=== PATIENT | female | born 1970 | race Two or more races ===

== ENCOUNTER 2020-04-06 06:51 | Emergency (ER) | payer MEDICAID, SELFPAY ==
[2020-04-06 07:08] VITALS: BP 145/85; PULSE 84; RESP 16; TEMP 37.2; O2SAT 99; BMI 25.2
--- NOTE | 2020-04-06 07:16 | ED_ITS ---
HPI - Female Genitourinary General Chief complaint: Urogenital-Female Stated complaint: ABD PAIN Time Seen by Provider: 04/06/20 07:14 Source: patient and educational sign language interpreter Mode of arrival: ambulatory Limitations: no limitations History of Present Illness MD elicited complaint: genital itching and other (has not had a period in 3 months) Pertinent past history: diabetes Onset (ago): month(s) (4) Location of symptoms: external genitalia Severity: moderate Quality of pain: other (pruritic) Consistency: intermittent Vaginal discharge: none Vaginal bleeding: none Exacerbating factors: none Relieving factors: none Associated symptoms: denies other symptoms Treatment prior to arrival: none Sexual activity: Yes Patient : No Related Data Previous Rx's Medication Instructions Recorded glycerin-min oil-polycarbophil 1 ea VAGINAL DAILY PRN #53.6 g 04/06/20 [Fem Moist andLub(glyc-min oil)] Allergies Allergy/AdvReac Type Severity Reaction Status Date / Time No Known Allergies Allergy Unverified 01/07/20 17:24 Review of Systems Review of Systems: Constitutional : No Weight loss, No Fever, No Chills ENT/Mouth : No sore throat, No Rhinorrhea Eyes: No Swelling, No Redness Cardiovascular : No Chest Pain, No SOB, NoEdema Respiratory : No Cough, No Sputum, No Wheezing Gastrointestinal : no Nausea, no Vomiting, no Diarrhea, no abdominal Pain, No Hematochezia, No Melena Genitourinary : No Dysuria, No Urinary Frequency, No Hematuria, No Urgency, pos vaginal itching, no discharge, missed periods Musculoskeletal : No joint pain, No Myalgias, No Joint Swelling Skin : No Skin Lesions, No rash Neuro : No Weakness, No Numbness, No Dizziness, No Headache Psych : No Anxiety/Panic, No Depression Heme/Lymph: No Bruising, No Lymphadenopathy Endocrine : No Polyuria, No Polydipsia All other systems reviewed and are negative. [facility] Past Medical History Attestation statement: The following information was validated with the patient. Medical History Diabetes Social History Social History (Updated 04/06/20 @ 07:21 by Caryl Trimble DO) Smoking Status: Never smoker Use of substances other than those prescribed or required for medical reasons: No Physical Exam Vital Signs: Vital Signs: Last Vital Signs Temp 98.9 F 04/06/20 07:08 Pulse 84 04/06/20 07:08 Resp 16 04/06/20 07:08 BP 145/85 H 04/06/20 07:08 Pulse Ox 99 04/06/20 07:08 Body Mass Index 25.2 Appearance: Alert. Oriented X3. No acute distress. Eyes: Pupils equal, round and reactive to light. ENT: Pharynx normal. Neck: Normal inspection. Neck supple. CVS: Normal heart rate and rhythm. Pulses normal. Respiratory: No respiratory distress. Breath sounds normal. Abdomen: Soft and nontender. : no discharge noted, shiny mildly erythematous labia, no rash noted, no lesions Skin: Skin warm and dry. Normal skin color. Normal skin turgor. Extremities: No lower extremity edema. No calf ttp Neuro: Oriented X 3. No motor deficit. No sensory deficit. MDM - Female Genitourinary MDM Narrative Medical decision making narrative: 49 yo female with DM here with 4 months of dry itching vaginal area and no menses x 3 cycles - she is worried she is but more likely this is early menopause and lack of estrogen given her vaginal appearance, no STD concerns, will obtain ED POC, UA and give a dose of diflucan and possibly start on cream for relief until she sees her PCP Lab Data Labs: Lab Results 04/06/20 Range/Units 07:15 POC Glucose 274 H (60-115) mg/dL Discharge Plan Discharge Clinical Impression: Dryness of vagina, Lack of menses Patient Disposition: Home, Self-Care Instructions: Vaginal Atrophy (ED) Additional Instructions: return to ED for any worsening symptoms or concerns Prescriptions: New Fem Moist andLub(glyc-min oil) Gel 1 ea vaginal DAILY PRN (Reason: dryness) Qty: 53.6 RF: 0 Referrals: Elizabeth Saavedra DO [Primary Care Provider] - 2 days (you should have a follow up for this) Print Language: Danish
[2020-04-06 07:19] LABS: Glucose, Whole Blood 274 mg/dL (60-115)
[2020-04-06] MEDS: Fluconazole 150 MG TABLET PO (07:26)
[2020-04-06 07:31] LABS: Glucose Urine UA >=1000 MG/DL (NEG); Leukocyte Esterase Urine NEG (NEG); Nitrite Urine NEG (NEG); PH 6.5 (5.0-8.0); Urine Blood NEG (NEG); Urine Ketones NEG (NEG); Urine Protein NEG (NEG-TRACE)
[2020-04-06 07:33] LABS: Appearance Urine CLEAR; Color Urine YELLOW; UPreg QC Valid YES; Urine Pregnancy NEGATIVE (NEGATIVE)
[2020-04-06 07:42] LABS: Bacteria Urine 1+ /LPF; RBC Urine 0 /HPF (0); Squamous Epithelial Cell Urine 2+ /LPF
== END 2020-04-06 07:54 | disposition home or self-care (01) ==
LOC: HO.ED 07:50
PROVIDERS: Emergency Provider Emergency Medicine; PCP Family Medicine
DX: N95.2 Postmenopausal atrophic vaginitis (principal)
CPT/HCPCS: 81001; 81025; 82947; 87086; 87147; 99283

== ENCOUNTER 2020-05-12 13:20 | Outpatient (REF) | payer MEDICAID, SELFPAY ==
--- NOTE | 2020-05-12 | US_ITS ---
EXAMINATION: US RETROPERITONEAL LIMITED (RENAL ONLY) CLINICAL INFORMATION: Cyst of kidney. COMPARISON: CT abdomen and pelvis without contrast dated 08/20/2019. Ultrasound abdomen complete dated 09/29/2018. Ultrasound renals only dated 07/23/2017. TECHNIQUE: Real-time imaging of the kidneys. FINDINGS: RIGHT KIDNEY: 12.4 x 6.6 x 4.9 cm (SAG x AP x TRV). The kidney is normal in size, contour, and echogenicity. Renal cortical thickness is normal. Mild pelvic fullness without significant hydronephrosis. Multiple renal stones measuring up to 0.7 cm within the lower pole and 0.6 cm within the midpole. Simple midpole cyst measuring 1.2 cm. LEFT KIDNEY: 12.1 x 5.3 x 5.9 cm (SAG x AP x TRV). The kidney is normal in size, contour, and echogenicity. Renal cortical thickness is normal. No hydronephrosis. Multiple left-sided renal stones measuring up to 1.2 cm in the lower pole and 0.8 cm within the midpole. Multiple simple-appearing cysts with the largest measuring up to 1.4 cm. US/US renal BI IMPRESSION: Multiple bilateral renal stones measuring up to 0.7 cm on the right and 0.8 cm on the left. Minimal left renal pelvic fullness without significant hydronephrosis. Simple-appearing bilateral renal cysts measuring 1.2 cm on the right and up to 1.4 cm on the left.
== END 2020-05-12 13:21 | disposition home or self-care (01) ==
LOC: HO.US 13:20
PROVIDERS: PCP Family Medicine; Visit Provider Family Medicine
DX: N28.1 Cyst of kidney, acquired (principal)
CPT/HCPCS: 76775

== ENCOUNTER 2020-06-11 11:24 | Emergency (ER) | payer MEDICAID, SELFPAY ==
[2020-06-11 11:50] VITALS: BP 151/86; PULSE 76; RESP 18; TEMP 36.9; O2SAT 100; BMI 25.0
--- NOTE | 2020-06-11 12:44 | ED.GENADULT ---
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 Patient was seen by her primary care doctor and had routine blood work ordered. She tells me she was called today and told her hemoglobin was low and told to go the emergency department for further evaluation. The patient tells me that she has had heavy and irregular menses for several years. She tells me that she last had a menses in April which lasted 20 days and was quite heavy using 1-2 packs of pads today. She does not currently have any bleeding. Her menses before then was 4 months earlier. She has had low hgb in the past but not requiring blood transfusions, not on iron. She is complaining of some intermittent palpitations and lightheadeness with position changes and with exertion. Related Data Previous Rx's Medication Instructions Recorded glycerin-min oil-polycarbophil 1 ea VAGINAL DAILY PRN #53.6 g 04/06/20 [Fem Moist andLub(glyc-min oil)] ferrous sulfate 325 mg PO DAILY #30 tab 06/11/20 Allergies Allergy/AdvReac Type Severity Reaction Status Date / Time No Known Allergies Allergy Unverified 01/07/20 17:24 Review of Systems Review of Systems: Yes all other systems are reviewed and are negative Constitutional: Constitutional: Reports no additional constitutional complaints, Denies body ache(s), Denies chills, Denies fever(s), Denies headache(s) and Denies weakness Eyes: Eyes: Reports no additional eye complaints and Denies change in vision ENT: Reports system reviewed and no additional complaints, except as documented, Reports dizziness, Denies headache(s), Denies nasal congestion, Denies nasal discharge and Denies neck pain Cardiovascular: Cardiovascular: Reports no additional cardiovascular complaints, Denies chest pain, Denies leg edema, Denies dyspnea and Reports dyspnea on exertion Respiratory: Respiratory: Reports no additional respiratory complaints, Denies cough, Denies dyspnea and Reports dyspnea on exertion Gastrointestinal: Gastrointestinal: Reports no additional gastrointestinal complaints, Denies abdominal pain, Denies diarrhea, Denies nausea and Denies vomiting Genitourinary: Genitourinary: Reports abnormal vaginal bleeding Musculoskeletal: Musculoskeletal: Reports no additional musculoskeletal complaints, Denies back pain, Denies arthralgias, Denies joint swelling, Denies neck pain, Denies numbness and Denies tingling Integumentary/Breasts: Skin/Breast: Reports system reviewed and no additional complaints, except as docu and Denies rash Neurologic: Reports system reviewed and no additional complaints, except as documented, Denies Abnormal speech present, Reports dizziness, Denies headache(s), Denies numbness, Denies tingling and Denies weakness [facility] Past Medical History Attestation statement: The following information was validated with the patient. Source: old records reviewed and nursing notes reviewed Medical History Diabetes Social History Social History Alcohol intake: never Smoking Status: Never smoker Use of substances other than those prescribed or required for medical reasons: No Advance Directives: No Advance Directives Information Provided: No Physical Exam Vital Signs: Vital Signs: Last Vital Signs Temp 98.1 F 06/11/20 16:09 Pulse 75 06/11/20 16:09 Resp 18 06/11/20 16:09 BP 138/79 06/11/20 16:09 Pulse Ox 100 06/11/20 16:09 Body Mass Index 25.0 Const: General: cooperative, healthy appearing, comfortable and no acute distress Orientation/consciousness: patient oriented x3 Limitations: no limitations HENMT: Head: Yes normal to inspection Ears: hearing grossly normal bilaterally General nose exam: Normal external nose present Face and sinus: Yes normal facial exam Mouth: Normal oral and palatal mucosa present Throat: Yes posterior oropharynx normal Eyes: General: appearance normal, both eyes and all related structures Conjunctivae: conjunctival abnormal (pale ) Pupils: Equal, round and reactive pupils present Neck: Neck: Yes normal visual inspection Chest: Chest palpation & inspection: normal inspection of the chest Resp: Effort & Inspection: normal respiratory effort Auscultation: clear to auscultation bilaterally Cardio: Rate: regular rate Rhythm: regular rhythm Peripheral pulses: Peripheral pulses 2+ throughout GI: Inspection: Yes normal to inspection Palpation (GI): Soft to palpation and nontender Auscultation: normal bowel sounds Back/Spine/Pelvis: Thoracic/Lumbar Spine: thoracic and lumbar spine normal to inspection Skin: General skin exam: no rashes or lesions noted Neuro: General: patient oriented x3, no focal motor deficits and normal sensation to monofilament Cranial nerves: Yes Equal, round and reactive pupils present Cognition (Neuro): normal cognition Speech: No Abnormal speech present Gait exam (Neuro): Normal gait present Motor exam (neuro): 5/5 motor strength present throughout Extrem: General: Yes normal to inspection Course Course Course Narrative: 49 yo female here with with low hgb in the setting of heavy, irregular vaginal bleeding none at this time. Exam is benign. No current bleeding. Vital signs stable. Will check labs, type and screen, EKG and orthostatics. 1400-Hgb 6.7. Consented for blood. 1 unit prbc ordered. 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 No need at this time with no active bleeding. Sign out to Candy pending PRBC completion and discharge home. Medical Decision Making Medical Records Medical records reviewed: Yes I reviewed the patient's medical records. Lab Data Lab results reviewed: Yes I reviewed the patient's lab results. Result diagrams: 06/11/20 13:14 06/11/20 13:14 Labs: Lab Results 06/11/20 06/11/20 06/11/20 Range/Units 13:14 13:14 13:14 WBC 6.0 (4.8-10.8) X10*3/uL RBC 3.42 L (4.20-5.50) X10*6/uL Hgb 6.7 L* (12.0-16.0) g/dl Hct 23.9 L (37-47) % MCV 69.9 L (80-98) fL MCH 19.6 L (27.0-33.0) pg MCHC 28.0 L (31.0-35.0) g/dl RDW 22.2 H (11.0-16.0) % Plt Count 269 (160-400) X10*3/uL MPV 9.6 (9.4-12.3) fL Immature Gran % (Auto) 0.3 (0.0-0.4) % Neut % (Auto) 63.8 (45-73) % Lymph % (Auto) 27.1 (20-40) % [place] % (Auto) 7.3 (2-11) % Eos % (Auto) 0.7 (0-4) % Baso % (Auto) 0.8 (0-2) % Lymph # (Auto) 1.6 (1.2-4.9) X10*3/uL [place] # (Auto) 0.4 (0.1-1.2) X10*3/uL Eos # (Auto) 0.0 (0.0-0.4) X10*3/uL Baso # (Auto) 0.1 (0.0-0.2) X10*3/uL Abs Immat Gran (auto) 0.02 (0.00-0.03) X10*3/uL Absolute Neuts (auto) 3.8 (2.0-8.3) X10*3/uL Absolute Nucleated RBC 0.000 (0.0-0.012) X10*3/uL Nucleated RBC % (auto) 0.0 (0.0-0.2) /100WBC PT 13.1 H (10.8-13.0) SEC INR 1.1 (0.9-1.1) Sodium 136 (135-145) mmol/L Potassium 4.4 (3.3-5.1) mmol/L Chloride 105 (96-108) mmol/L Carbon Dioxide 22 (22-29) mmol/L Anion Gap 13 (12-20) BUN 8 L (9-16) mg/dL Creatinine 0.67 (0.5-1.4) mg/dL Estim Creat Clear Calc 93.3 Estimated GFR > 60 Random Glucose 202 H (60-115) mg/dL Calcium 8.6 (8.4-10.2) mg/dL Blood Type Antibody Screen Crossmatch 06/11/20 Range/Units 13:41 WBC (4.8-10.8) X10*3/uL RBC (4.20-5.50) X10*6/uL Hgb (12.0-16.0) g/dl Hct (37-47) % MCV (80-98) fL MCH (27.0-33.0) pg MCHC (31.0-35.0) g/dl RDW (11.0-16.0) % Plt Count (160-400) X10*3/uL MPV (9.4-12.3) fL Immature Gran % (Auto) (0.0-0.4) % Neut % (Auto) (45-73) % Lymph % (Auto) (20-40) % [place] % (Auto) (2-11) % Eos % (Auto) (0-4) % Baso % (Auto) (0-2) % Lymph # (Auto) (1.2-4.9) X10*3/uL [place] # (Auto) (0.1-1.2) X10*3/uL Eos # (Auto) (0.0-0.4) X10*3/uL Baso # (Auto) (0.0-0.2) X10*3/uL Abs Immat Gran (auto) (0.00-0.03) X10*3/uL Absolute Neuts (auto) (2.0-8.3) X10*3/uL Absolute Nucleated RBC (0.0-0.012) X10*3/uL Nucleated RBC % (auto) (0.0-0.2) /100WBC PT (10.8-13.0) SEC INR (0.9-1.1) Sodium (135-145) mmol/L Potassium (3.3-5.1) mmol/L Chloride (96-108) mmol/L Carbon Dioxide (22-29) mmol/L Anion Gap (12-20) BUN (9-16) mg/dL Creatinine (0.5-1.4) mg/dL Estim Creat Clear Calc Estimated GFR Random Glucose (60-115) mg/dL Calcium (8.4-10.2) mg/dL Blood Type O Positive Antibody Screen NEGATIVE Crossmatch See Detail ECG Data Attestation: I personally reviewed and interpreted this ECG as follows: Interpretation: NSR, rate 73, normal pr, normal qrs, normal qt Discharge Plan Discharge Clinical Impression: Anemia Qualifiers: Anemia type: iron deficiency Iron deficiency anemia type: chronic blood loss Qualified Code(s): D50.0 - Iron deficiency anemia secondary to blood loss (chronic) Patient Disposition: Home, Self-Care Instructions: Anemia (ED) Additional Instructions: Your hemoglobin was 6.7. You received one unit of blood You should start taking an iron supplement You should follow-up with [employer] END DEVELOPER for your heavy irregular bleeding Prescriptions: New ferrous sulfate 325 mg (65 mg iron) tablet 325 mg PO DAILY Qty: 30 RF: 0 No Action Fem Moist andLub(glyc-min oil) Gel 1 ea vaginal DAILY PRN (Reason: dryness) Qty: 53.6 RF: 0 Referrals: Shawn Kendrick MD [Physician] - 2 days Print Language: Swedish
--- NOTE | 2020-06-11 12:53 | ECG_ITS ---
Test Reason : ABNORM LABS Blood Pressure : / mmHG Vent. Rate : 073 BPM Atrial Rate : 073 BPM P-R Int : 138 ms QRS Dur : 072 ms QT Int : 380 ms P-R-T Axes : 050 052 046 degrees QTc Int : 418 ms Normal sinus rhythm Normal ECG When compared with ECG of 14-NOV-2014 20:27, No significant change was found Referred By: Mara Florez Electronically Signed By:Jose Guadalupe Villanueva
[2020-06-11 13:20] LABS: Basophils Absolute Auto 0.1 X10*3/uL (0.0-0.2); Basophils Percent Auto 0.8 % (0-2); Eosinophils Percent Auto 0.7 % (0-4); Hematocrit 23.9 % (37-47); Imm Gran Abs Auto 0.02 X10*3/uL (0.00-0.03); Imm Gran Pct Auto 0.3 % (0.0-0.4); Lymphocytes Absolute Auto 1.6 X10*3/uL (1.2-4.9); Lymphocytes Percent Auto 27.1 % (20-40); MANUAL DIFF FLAG NO; Mean Corpuscular Hemoglobin 19.6 pg (27.0-33.0); Mean Corpuscular Volume 69.9 fL (80-98); Mean Platelet Volume 9.6 fL (9.4-12.3); Monocytes Absolute Auto 0.4 X10*3/uL (0.1-1.2); Monocytes Percent Auto 7.3 % (2-11); Neutrophils Absolute Auto 3.8 X10*3/uL (2.0-8.3); Neutrophils Percent Auto 63.8 % (45-73); Platelet Count 269 X10*3/uL (160-400); Red Blood Count 3.42 X10*6/uL (4.20-5.50); Red Cell Distribution Width 22.2 % (11.0-16.0)
[2020-06-11 13:30] LABS: Hemoglobin 6.7 g/dl (12.0-16.0); INTERNATIONAL NORM RATIO 1.1 (0.9-1.1); Prothrombin Time 13.1 SEC (10.8-13.0)
[2020-06-11 13:44] VITALS: BP 130/72; PULSE 80; RESP 18; TEMP 36.9; O2SAT 100
[2020-06-11 13:49] LABS: Anion Gap 13 (12-20); Blood Urea Nitrogen 8 mg/dL (9-16); Calcium 8.6 mg/dL (8.4-10.2); Carbon Dioxide 22 mmol/L (22-29); Chloride 105 mmol/L (96-108); Creatinine Clr Calc Pharmacy 93.3; Estimated Glomerular Filt Rate > 60; Glucose Random 202 mg/dL (60-115); Potassium 4.4 mmol/L (3.3-5.1); Sodium 136 mmol/L (135-145)
[2020-06-11 14:39] VITALS: BP 130/81; PULSE 80; RESP 16; TEMP 36.7
[2020-06-11 14:55] VITALS: BP 127/73; PULSE 74; RESP 16; TEMP 37.1
--- NOTE | 2020-06-11 15:19 | PC.NURSE ---
pt currently receiving 1 unit of RBC transfusion. Vitals at start of transfusion BP: 130/81, HR: 80, T: 98.1 f. Vital signs after first 15min of transfusion BP: 127/73, HR: 74, T: 98.8 f. Patient denies feeling itchy, denies feeling short of breath, denies back pain, denies feeling chills, lung sounds clear bilaterally. md mosley
[2020-06-11 16:09] VITALS: BP 138/79; PULSE 75; RESP 18; TEMP 36.7; O2SAT 100
--- NOTE | 2020-06-11 16:10 | PC.NURSE ---
resting quielty. blood infusing. states she's hugry. denies bleeding. up to br with steady gait. ls cta. nsr on monitor. skin pwd. slight palor lower conjunctiva.
[2020-06-11 17:05] VITALS: BP 123/78; PULSE 97; RESP 15; TEMP 37
== END 2020-06-11 18:12 | disposition home or self-care (01) ==
PROVIDERS: Nurse Practitioner Family; Emergency Provider Emergency Medicine; PCP Family Medicine
DX: D50.0 Iron deficiency anemia secondary to blood loss (chronic) (principal); N92.6 Irregular menstruation, unspecified; E11.9 Type 2 diabetes mellitus without complications
CPT/HCPCS: 36415; 36430; 80048; 85025; 85060; 85610; 86850; 86900; 86901; 86923; 93005; 99284; 99285; P9016

== ENCOUNTER 2020-08-15 17:17 | Emergency (ER) | payer MEDICAID, SELFPAY ==
--- NOTE | ~2020-08-15 | US_ITS ---
EXAMINATION: PELVIC ULTRASOUND CLINICAL INFORMATION: Pain and menorrhagia COMPARISON: 08/20/2019 TECHNIQUE: Both transabdominal and endovaginal scanning was performed. FINDINGS: An enlarged fibroid uterus is present measuring 17.4 x 7.0 x 9.4 cm, significantly larger than previously noted, for a volume of 600 mL (previously 314 mL). A large fundal fibroid has actually decreased in size measuring 4.8 x 4.5 x 4.5 cm (previously 5.1 x 4.8 x 4.0 cm). An adjacent fundal fibroid appears slightly smaller as well measuring 1.5 x 1.5 x 1.7 cm (previously 1.8 x 2.3 x 1.2 cm). The right ovary measures 3.2 x 2.4 x 2.2 cm for a volume of 8.9 mL. A paraovarian cyst is present measuring 2.3 x 1.6 x 2.0 cm. The left ovary measures 2.5 x 1.6 x 1.6 cm for volume of 3.4 mL and appears unremarkable. A nabothian cyst is present in the cervix. Blood can be seen in the endocervical canal. A trace amount of free intraperitoneal fluid is present in the cul-de-sac. US/US pelvic complete IMPRESSION: Marked enlargement of fibroid uterus, increasing from 314 mL to 600 mL. A discrete fibroid seen at the fundus measures slightly smaller. Other findings as described above.
--- NOTE | ~2020-08-15 | US_ITS ---
EXAMINATION: PELVIC ULTRASOUND CLINICAL INFORMATION: Pain and menorrhagia COMPARISON: 08/20/2019 TECHNIQUE: Both transabdominal and endovaginal scanning was performed. FINDINGS: An enlarged fibroid uterus is present measuring 17.4 x 7.0 x 9.4 cm, significantly larger than previously noted, for a volume of 600 mL (previously 314 mL). A large fundal fibroid has actually decreased in size measuring 4.8 x 4.5 x 4.5 cm (previously 5.1 x 4.8 x 4.0 cm). An adjacent fundal fibroid appears slightly smaller as well measuring 1.5 x 1.5 x 1.7 cm (previously 1.8 x 2.3 x 1.2 cm). The right ovary measures 3.2 x 2.4 x 2.2 cm for a volume of 8.9 mL. A paraovarian cyst is present measuring 2.3 x 1.6 x 2.0 cm. The left ovary measures 2.5 x 1.6 x 1.6 cm for volume of 3.4 mL and appears unremarkable. A nabothian cyst is present in the cervix. Blood can be seen in the endocervical canal. A trace amount of free intraperitoneal fluid is present in the cul-de-sac. US/US transvaginal IMPRESSION: Marked enlargement of fibroid uterus, increasing from 314 mL to 600 mL. A discrete fibroid seen at the fundus measures slightly smaller. Other findings as described above.
[2020-08-15 17:53] VITALS: BP 149/66; PULSE 83; RESP 18; TEMP 36.9; O2SAT 99; BMI 27.6
--- NOTE | 2020-08-15 17:57 | ECG_ITS ---
Test Reason : PALPITATIONS Blood Pressure : / mmHG Vent. Rate : 074 BPM Atrial Rate : 074 BPM P-R Int : 132 ms QRS Dur : 080 ms QT Int : 376 ms P-R-T Axes : 039 055 003 degrees QTc Int : 417 ms Normal sinus rhythm with sinus arrhythmia ST & T wave abnormality, consider anterior ischemia Abnormal ECG When compared with ECG of 11-JUN-2020 13:41, T wave inversion now evident in Anterior leads Referred By: Generic ED Physician Electronically Signed By:ZANA STONE MD
[2020-08-15 18:27] LABS: MANUAL DIFF FLAG NO
[2020-08-15 18:32] LABS: Glucose Urine UA >=1000 MG/DL (NEG); Leukocyte Esterase Urine NEG (NEG); Nitrite Urine NEG (NEG); Specific Gravity - Urine 1.015 (1.005-1.025); Urine Blood 3+ (NEG); Urine Ketones 5 MG/DL (NEG); Urine Protein 1+ MG/DL (NEG-TRACE)
[2020-08-15 18:34] LABS: Appearance Urine CLOUDY; Color Urine RED
[2020-08-15 18:35] LABS: UPreg QC Valid YES; Urine Pregnancy NEGATIVE (NEGATIVE)
[2020-08-15 18:39] LABS: Basophils Absolute Auto 0.1 X10*3/uL (0.0-0.2); Basophils Percent Auto 0.6 % (0-2); Eosinophils Absolute Auto 0.1 X10*3/uL (0.0-0.4); Eosinophils Percent Auto 1.2 % (0-4); Hematocrit 33.3 % (37-47); Hemoglobin 9.8 g/dl (12.0-16.0); Imm Gran Abs Auto 0.03 X10*3/uL (0.00-0.03); Imm Gran Pct Auto 0.3 % (0.0-0.4); Lymphocytes Absolute Auto 1.7 X10*3/uL (1.2-4.9); Lymphocytes Percent Auto 17.6 % (20-40); Mean Corpuscular HGB Conc 29.4 g/dl (31.0-35.0); Mean Platelet Volume 10.2 fL (9.4-12.3); Monocytes Absolute Auto 0.4 X10*3/uL (0.1-1.2); Monocytes Percent Auto 4.6 % (2-11); Neutrophils Absolute Auto 7.2 X10*3/uL (2.0-8.3); Neutrophils Percent Auto 75.7 % (45-73); Platelet Count 407 X10*3/uL (160-400); Red Blood Count 4.27 X10*6/uL (4.20-5.50); Red Cell Distribution Width 16.3 % (11.0-16.0); White Blood Count 9.6 X10*3/uL (4.8-10.8)
[2020-08-15 18:47] LABS: Anion Gap 12 (12-20); Blood Urea Nitrogen 10 mg/dL (9-16); Calcium 9.3 mg/dL (8.4-10.2); Carbon Dioxide 23 mmol/L (22-29); Chloride 104 mmol/L (96-108); Estimated Glomerular Filt Rate > 60; Glucose Random 397 mg/dL (60-115); Potassium 3.8 mmol/L (3.3-5.1); Sodium 135 mmol/L (135-145)
[2020-08-15 19:05] LABS: Squamous Epithelial Cell Urine TRACE /LPF; WBC Urine 0-2 /HPF (0-4)
--- NOTE | 2020-08-15 21:55 | ED_ITS ---
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 As per patient there has been discussion regarding removal of the uterus however she has declined those options and otherwise states that ?nothing has helped?. Although patient reports palpitations for 3 days she just started menstruating today and reports saturating 7 or more heavy pads. Patient states that she feels dizziness on standing but then it resolves and she had a couple of episodes of palpitations that were very brief induration. Otherwise she denies any chest pain, GI symptoms, or pain on menstruation. Related Data Previous Rx's Medication Instructions Recorded glycerin-min oil-polycarbophil 1 ea VAGINAL DAILY PRN #53.6 g 04/06/20 [Fem Moist andLub(glyc-min oil)] ferrous sulfate 325 mg PO DAILY #30 tab 06/11/20 medroxyprogesterone [Provera] 10 mg PO DAILY 14 Days #14 tab 08/15/20 Allergies Allergy/AdvReac Type Severity Reaction Status Date / Time No Known Allergies Allergy Verified 08/15/20 17:53 Review of Systems Review of Systems: Pertinent positives and negatives as stated in HPI 10 point review of systems is otherwise negative. PMFSH Past Medical History Source: nursing notes reviewed Medical History Diabetes Migraines Social History Social History Alcohol intake: never Smoking Status: Former smoker Use of substances other than those prescribed or required for medical reasons: No Advance Directives: No Physical Exam Vital Signs: Vital Signs: Last Vital Signs Temp 97.9 F 08/16/20 00:00 Pulse 70 08/16/20 00:00 Resp 14 08/16/20 00:00 BP 135/74 08/16/20 00:00 Pulse Ox 100 08/16/20 00:00 Body Mass Index 27.6 VITAL SIGNS: Reviewed. GENERAL: Well developed, well nourished, in no acute distress. HEAD: Normocephalic/atraumatic, EYES: PERRLA, EOMI intact without pain, no nystagmus/pallor OROPHARYNX: no oral lesions noted, posterior pharynx clear NECK: Supple, no adenopathy LUNGS: Normal breath sounds. No adventitious sounds or accessory muscle use. SpO2<100> CARDIOVASCULAR: Regular rate and rhythm without noted murmurs ABDOMEN: Soft, non-tender, non-distended with bowel sounds. MUSCULOSKELETAL: No tenderness, deformities, or effusions noted on gross inspection. EXTREMITIES: No cyanosis, clubbing or edema. SKIN: Inspection of the skin reveals no rashes, ulcerations, jaundice, pallor NEUROLOGIC: Alert and oriented x 4. Course Course Course Narrative: 49-year-old female with history and clinical presentation consistent with chronic menorrhagia with multiple modalities attempted to control this, however appear to have been insufficient. Patient states that she has been in [place] for the past month and endorses 20 days of menstrual bleeding last month. Although review of lab work shows chronically stable values patient's orthostatics were noted to be positive. Patient will receive 1 L of IV fluids and I will discuss this case with Dr Kendrick. Review of all investigations negative for acute findings beyond chronic stable, but due to positive orthostatics a L of fluids was given in on re-evaluation patient is feeling much better. Review of ultrasound findings consistent with significant uterine fibroids. Patient informed plan and all findings and will be discharged home in stable condition. Reevaluation(s) Reevaluation #1: I discussed the case with Dr. Kendrick who will get the patient set up with an appointment in the next 3 days and recommend starting the patient on Provera 10 mg, daily x14 days. Time: 23:42 [facility] - Female Genitourinary Lab Data Result diagrams: 08/15/20 18:21 08/15/20 18:21 Labs: Lab Results 08/15/20 08/15/20 08/15/20 Range/Units 18:21 18:21 18:21 WBC 9.6 (4.8-10.8) X10*3/uL RBC 4.27 D (4.20-5.50) X10*6/uL Hgb 9.8 L D (12.0-16.0) g/dl Hct 33.3 L D (37-47) % MCV 78.0 L (80-98) fL MCH 23.0 L (27.0-33.0) pg MCHC 29.4 L (31.0-35.0) g/dl RDW 16.3 H (11.0-16.0) % Plt Count 407 H D (160-400) X10*3/uL MPV 10.2 (9.4-12.3) fL Immature Gran % (Auto) 0.3 (0.0-0.4) % Neut % (Auto) 75.7 H (45-73) % Lymph % (Auto) 17.6 L (20-40) % [place] % (Auto) 4.6 (2-11) % Eos % (Auto) 1.2 (0-4) % Baso % (Auto) 0.6 (0-2) % Lymph # (Auto) 1.7 (1.2-4.9) X10*3/uL [place] # (Auto) 0.4 (0.1-1.2) X10*3/uL Eos # (Auto) 0.1 (0.0-0.4) X10*3/uL Baso # (Auto) 0.1 (0.0-0.2) X10*3/uL Abs Immat Gran (auto) 0.03 (0.00-0.03) X10*3/uL Absolute Neuts (auto) 7.2 (2.0-8.3) X10*3/uL Absolute Nucleated RBC 0.000 (0.0-0.012) X10*3/uL Nucleated RBC % (auto) 0.0 (0.0-0.2) /100WBC Hold Blue Top SEE NOTE Sodium (135-145) mmol/L Potassium (3.3-5.1) mmol/L Chloride (96-108) mmol/L Carbon Dioxide (22-29) mmol/L Anion Gap (12-20) BUN (9-16) mg/dL Creatinine (0.5-1.4) mg/dL Estim Creat Clear Calc Estimated GFR Random Glucose (60-115) mg/dL Calcium (8.4-10.2) mg/dL Urine Color Urine Appearance Urine pH (5.0-8.0) Ur Specific [place] (1.005-1.025) Urine Protein (NEG-TRACE) MG/DL Urine Glucose (UA) (NEG) MG/DL Urine Ketones (NEG) MG/DL Urine Blood (NEG) Urine Nitrite (NEG) Ur Leukocyte Esterase (NEG) Urine RBC (0) /HPF Urine WBC (0-4) /HPF Ur Squamous Epith Cells /LPF Urine Bacteria /LPF Urine Test NEGATIVE (NEGATIVE) 08/15/20 08/15/20 Range/Units 18:21 18:21 WBC (4.8-10.8) X10*3/uL RBC (4.20-5.50) X10*6/uL Hgb (12.0-16.0) g/dl Hct (37-47) % MCV (80-98) fL MCH (27.0-33.0) pg MCHC (31.0-35.0) g/dl RDW (11.0-16.0) % Plt Count (160-400) X10*3/uL MPV (9.4-12.3) fL Immature Gran % (Auto) (0.0-0.4) % Neut % (Auto) (45-73) % Lymph % (Auto) (20-40) % [place] % (Auto) (2-11) % Eos % (Auto) (0-4) % Baso % (Auto) (0-2) % Lymph # (Auto) (1.2-4.9) X10*3/uL [place] # (Auto) (0.1-1.2) X10*3/uL Eos # (Auto) (0.0-0.4) X10*3/uL Baso # (Auto) (0.0-0.2) X10*3/uL Abs Immat Gran (auto) (0.00-0.03) X10*3/uL Absolute Neuts (auto) (2.0-8.3) X10*3/uL Absolute Nucleated RBC (0.0-0.012) X10*3/uL Nucleated RBC % (auto) (0.0-0.2) /100WBC Hold Blue Top Sodium 135 (135-145) mmol/L Potassium 3.8 (3.3-5.1) mmol/L Chloride 104 (96-108) mmol/L Carbon Dioxide 23 (22-29) mmol/L Anion Gap 12 (12-20) BUN 10 (9-16) mg/dL Creatinine 0.83 (0.5-1.4) mg/dL Estim Creat Clear Calc 82.0 Estimated GFR > 60 Random Glucose 397 H* (60-115) mg/dL Calcium 9.3 D (8.4-10.2) mg/dL Urine Color RED Urine Appearance CLOUDY Urine pH 7.0 (5.0-8.0) Ur Specific [place] 1.015 (1.005-1.025) Urine Protein 1+ H (NEG-TRACE) MG/DL Urine Glucose (UA) >=1000 H (NEG) MG/DL Urine Ketones 5 (NEG) MG/DL Urine Blood 3+ H (NEG) Urine Nitrite NEG (NEG) Ur Leukocyte Esterase NEG (NEG) Urine RBC 76-150 H (0) /HPF Urine WBC 0-2 (0-4) /HPF Ur Squamous Epith Cells TRACE /LPF Urine Bacteria NONE /LPF Urine Test (NEGATIVE) Discharge Plan Discharge Clinical Impression: DUB (dysfunctional uterine bleeding) Patient Disposition: Home, Self-Care Instructions: Menorrhagia (ED) Additional Instructions: 1. Reanude todos los medicamentos caseros seg?n lo prescrito. 2. La oficina de ginecolog?a se comunicar? con usted para programar yovana daniella con respecto a chamberlain sangrado menstrual abundante. 3. Le mendoza recetado un medicamento para el sangrado menstrual que debe omar seg?n las indicaciones. Regrese al departamento de emergencias por cualquier empeoramiento teri de maureen s?ntomas. Prescriptions: New medroxyprogesterone [Provera] 10 mg tablet 10 mg PO DAILY 14 Days Qty: 14 RF: 0 No Action Fem Moist andLub(glyc-min oil) Gel 1 ea vaginal DAILY PRN (Reason: dryness) Qty: 53.6 RF: 0 ferrous sulfate 325 mg (65 mg iron) tablet 325 mg PO DAILY Qty: 30 RF: 0 Referrals: Elizabeth Saavedra DO [Primary Care Provider] - 2 days (Menorrhagia) Shawn Kendrick MD [Physician] - 2 days (Evaluation and treatment for menorrhagia E a and based on pelvic ultrasound appears to be secondary to numerous uterine fibroids that have increased in size.) Print Language: Wolof
[2020-08-15 22:14] VITALS: BP 142/78; PULSE 69; PULSE 71; RESP 18; O2SAT 100
[2020-08-15 22:15] VITALS: BP 157/79; PULSE 74
[2020-08-15 22:16] VITALS: BP 118/78; PULSE 77
[2020-08-15] MEDS: 0.9 % Sodium Chloride 1,000 ML 999 ML IV (22:41)
[2020-08-16] VITALS: BP 135/74; PULSE 70; RESP 14; TEMP 36.6; O2SAT 100
[2020-08-16 01:09] LABS: Glucose, Whole Blood 215 mg/dL (60-115)
== END 2020-08-16 01:31 | disposition home or self-care (01) ==
PROVIDERS: Emergency Provider Student in an Organized Health Care Education/Training Program; PCP Family Medicine
DX: N93.8 Other specified abnormal uterine and vaginal bleeding (principal); D25.9 Leiomyoma of uterus, unspecified
CPT/HCPCS: 36415; 76830; 76856; 80048; 81001; 81025; 82947; 85025; 93005; 96360; 99284; 99285

== ENCOUNTER 2021-04-20 14:55 | Outpatient (REF) | payer MEDICAID, SELFPAY ==
[2021-04-20 16:44] LABS: Binax Internal Control QC Valid; Binax Lot number: 9864; Binax Now Covid-19 Ag Negative (Negative)
== END 2021-04-20 14:56 | disposition home or self-care (01) ==
LOC: HO.LAB 14:55
PROVIDERS: Visit Provider Internal Medicine
DX: Z20.822 Contact with and (suspected) exposure to COVID-19 (principal)
CPT/HCPCS: 36415; C9803

== ENCOUNTER 2022-11-03 10:37 | Emergency (ER) | payer MEDICAID, SELFPAY ==
--- NOTE | ~2022-11-03 | US_ITS ---
EXAMINATION: US PELVIS COMPLETE CLINICAL INFORMATION: Vaginal bleeding COMPARISON: Pelvic ultrasound 08/15/2020 TECHNIQUE: Transabdominal and transvaginal imaging was performed. FINDINGS: The uterus is enlarged with heterogeneous myometrial echotexture and Venetian blind shadowing measuring 11.1 x 6.3 x 6.7 cm. A regular homogeneous endometrium is identified measuring 0.5 cm. Nabothian cysts in the cervix. A 4.5 x 4.2 x 3.8 cm transmural fundal myoma with a less than 50% submucosal component, previously 4.8 x 4.5 x 4.5 cm. Both ovaries are of normal size and echogenicity. The right measures 3.2 x 1.9 x 2.4 cm for a volume of 7.6 mL. The left measures 3.2 x 1.7 x 2.1 cm for a volume of 6.0 mL. There is no pelvic free fluid. US/US pelvic and transvaginal IMPRESSION: 1. A 4.5 cm transmural fundal myoma with a less than 50% submucosal component, previously 4.8 cm. 2. Uterus is enlarged with heterogeneous myometrial echotexture and Venetian blind shadowing which can be seen in the setting of adenomyosis.
[2022-11-03 10:46] VITALS: BP 154/90; PULSE 66; RESP 18; TEMP 36.6; O2SAT 99; BMI 25.2
[2022-11-03 11:25] LABS: MANUAL DIFF FLAG NO
[2022-11-03 11:26] LABS: Basophils Absolute Auto 0.1 X10*3/uL (0.0-0.2); Basophils Percent Auto 0.9 % (0-2); Eosinophils Absolute Auto 0.2 X10*3/uL (0.0-0.4); Eosinophils Percent Auto 2.3 % (0-4); Hematocrit 38.8 % (37.0-47.0); Hemoglobin 12.2 g/dl (12.0-16.0); Imm Gran Abs Auto 0.03 X10*3/uL (0.00-0.03); Imm Gran Pct Auto 0.4 % (0.0-0.4); Lymphocytes Absolute Auto 2.2 X10*3/uL (1.2-4.9); Lymphocytes Percent Auto 27.7 % (20-40); Mean Corpuscular HGB Conc 31.4 g/dl (31.0-35.0); Mean Corpuscular Hemoglobin 24.4 pg (27.0-33.0); Mean Corpuscular Volume 77.8 fL (80.0-98.0); Monocytes Absolute Auto 0.3 X10*3/uL (0.1-1.2); Monocytes Percent Auto 4.4 % (2-11); Neutrophils Percent Auto 64.3 % (45-73); Platelet Count 291 X10*3/uL (160-400); Red Blood Count 4.99 X10*6/uL (4.20-5.50); Red Cell Distribution Width 15.4 % (11.0-16.0); White Blood Count 7.8 X10*3/uL (4.8-10.8)
[2022-11-03 11:41] LABS: Alanine Aminotransferase 51 U/L (0-31); Albumin Level 3.7 g/dL (3.5-5.0); Alkaline Phosphatase 106 U/L (39-117); Anion Gap 16 (12-20); Aspartate Amino Transferase 51 U/L (5-31); Bilirubin Total 0.4 mg/dL (0.0-1.0); Blood Urea Nitrogen 8 mg/dL (9-16); Calcium 9.2 mg/dL (8.4-10.2); Carbon Dioxide 23 mmol/L (22-29); Chloride 103 mmol/L (96-108); Creatinine Clr Calc Pharmacy 84.1; Estimated Glomerular Filt Rate > 60; Glucose Random 259 mg/dL (60-115); Sodium 138 mmol/L (135-145); Total Protein 7.2 g/dL (6.5-8.0)
[2022-11-03 13:14] VITALS: BP 168/89; PULSE 62; RESP 16; TEMP 36.5; O2SAT 100
--- NOTE | 2022-11-03 13:25 | PC.NURSE ---
pt axox4, VSS, respirations even and unlabored, skin wpd, +bs x4, last bm today. pt c/o upper abd. pain x 5 days; sudden onset; denies n/v/d. pt states vaginal bleeding d/t menstruation cycle; started 10/29/22. at bedside; both deny questions/concerns at this time. call hernandez within reach.
[2022-11-03 13:41] VITALS: BP 144/81; PULSE 53
--- NOTE | 2022-11-03 13:42 | ED.FEMALEGU ---
HPI - Female Genitourinary General Chief complaint: Vaginal Bleeding Stated complaint: stoamch pain , bleeding Time Seen by Provider: 11/03/22 12:54 Source: patient, RN notes reviewed and old records reviewed Mode of arrival: ambulatory Limitations: language barrier History of Present Illness HPI Narrative: 51 year old patient with past medical history of dysfunctional uterine bleeding presents to the ED c/o heavy vaginal bleeding x 5 days accompanied by epigastric and suprapubic abdominal pain. Admits she is bleeding through 2 pads an hour w/ assoc lightheadedness/dizziness upon standing. Admits she was previously seen here for the same issue , was referred to [facility] where they performed biopsy which was unremarkable fall per patient. She was prescribed ferrous sulfate and Provera which resolved her symptoms at that time currently does not take any medication. Denies chest pain, SOB, nausea/ vomiting, diarrhea, flank pain MD elicited complaint: vaginal bleeding and pelvic pain Related Data Previous Rx's Medication Instructions Recorded glycerin-mineral oil-polycarbophil 1 ea vaginal DAILY PRN dryness 04/06/20 vaginal gel (Feminine Moisturizer #53.6 grams and Lubricating(glyc-mnOil) vaginal gel) ferrous sulfate 325 mg (65 mg 325 mg PO DAILY #30 tabs 06/11/20 iron) tablet medroxyprogesterone 10 mg tablet 10 mg PO DAILY 14 days #14 tabs 08/15/20 (Provera) Allergies Allergy/AdvReac Type Severity Reaction Status Date / Time No Known Allergies Allergy Verified 11/03/22 10:44 Review of Systems Review of Systems: Constitutional: No Fever, No Chills, No Fatigue, No Malaise ENT/Mouth: No Nasal Congestion, No sore throat, No Rhinorrhea Eyes: No Eye Pain, No Vision Changes Cardiovascular: No Chest Pain, No SOB, No Edema Respiratory: No Cough, No Sputum, No Wheezing Gastrointestinal: No Nausea, No vomiting, No Diarrhea, No Constipation, + Abdominal pain Genitourinary: +irregular bleeding, No Dysuria, No Urinary Frequency, No Hematuria, No Urinary Incontinence/retention, No Flank Pain Musculoskeletal: No joint pain, No Myalgias, No Joint Swelling Skin: No Skin Lesions, No rash Neuro: +Weakness, No Numbness, No Paresthesias, No Loss of Consciousness, + lightheaded/Dizziness, No Headache Yes all other systems are reviewed and are negative Constitutional: Constitutional: Reports as per HPI Neurologic: Denies Abnormal speech present [facility] Past Medical History Attestation statement: The following information was validated with the patient. Source: old records reviewed Medical History Diabetes Migraines Social History Social History Alcohol intake: never Smoked in Last 30 Days: No Use of substances other than those prescribed or required for medical reasons: No Advance Directives: No Advance Directives Information Provided: Yes Physical Exam Vital Signs: Vital Signs: Last Vital Signs Temp 97.9 F 11/03/22 15:54 Pulse 62 11/03/22 15:54 Resp 16 11/03/22 15:54 BP 178/88 H 11/03/22 15:54 Pulse Ox 100 11/03/22 15:54 O2 Del Method Room Air 11/03/22 15:54 BMI result Body Mass Index 25.2 Const: General: cooperative, healthy appearing, no acute distress, alert and awake Orientation/consciousness: patient oriented x3 Limitations: no limitations and language barrier HEENT: Head: Yes normal to inspection and Yes atraumatic Ears: hearing grossly normal bilaterally General nose exam: Normal external nose present Face and sinus: Yes normal facial exam Eyes: General: appearance normal, both eyes and all related structures EOM: EOMs intact bilaterally Neck: Neck: Yes normal visual inspection and Yes no meningeal signs Chest: Chest palpation & inspection: normal inspection of the chest Resp: Effort & Inspection: normal respiratory effort and no respiratory distress Auscultation: clear to auscultation bilaterally Cardio: Rate: regular rate Heart sounds: S1 normal heart sound present and S2 normal heart sound present Peripheral pulses: Peripheral pulses 2+ throughout GI: Inspection: Yes normal to inspection Palpation (GI): Soft to palpation, Tenderness to palpation present (GI) in the epigastrum and suprapubicly; with no rebound tenderness, no guarding and not rigid : Other: + vaginal bleeding noted in vaginal vault, cleared with Q-tip, no evidence of active bleeding/hemorrhage. No appreciable mass General: Yes no CVA tenderness Speculum Exam - Vagina: vaginal bleeding OB/external & speculum: vaginal bleeding Back/Spine/Pelvis: Back: no CVA tenderness Skin: Rashes: no rashes Wounds: no wounds Neuro: General: patient oriented x3, gait normal, tone normal, moves all extremities, no meningeal signs, no focal motor deficits and CN's II-XI intact bilaterally Cranial nerves: Yes CN's II-XII intact bilaterally and Yes Bilaterally intact EOM present Cognition (Neuro): normal cognition Speech: No Abnormal speech present Gait exam (Neuro): Normal gait present Motor exam (neuro): 5/5 motor strength present throughout Extrem: General: Yes normal to inspection and Yes full ROM Right lower extremity: no edema Left lower extremity: no edema Course Course Course Narrative: -1540--no leukocytosis. H&H stable. Chronically elevated AST/ALT. Labs otherwise reassuring -UA with RBCs, not infected US pelvic and transvaginal IMPRESSION: 1.? A 4.5 cm transmural fundal myoma with a less than 50% submucosal component, previously 4.8 cm. 2.? Uterus is enlarged with heterogeneous myometrial echotexture and Venetian blind shadowing which can be seen in the setting of adenomyosis. ? > will consult Dr. Kendrick > who recommended outpatient follow-up for further testing/endometrial biopsy. Does not recommend initiating medications at this time Results discussed with patient including worrisome signs and symptoms and strict return precautions, and when to return to the emergency department. They verbalized understanding and feel safe for discharge at this time. Medical Decision Making Medical Decision Making [facility] Narrative: 51 year old patient with past medical history of dysfunctional uterine bleeding presents to the ED c/o heavy vaginal bleeding x 5 days accompanied by epigastric and suprapubic abdominal pain. On exam vital signs stable, NAD, nontoxic appearing, abdomen soft with mild epigastric and suprapubic tenderness, no rebound or guarding, no CVAT.. Concern for DUB vs leiomyomas vs endometriosis vs adenomyosis vs coagulopathy w/ AUB. lower concern for ectopic , ovarian torsion, vaginal trauma appendicitis/diverticulitis or UTI. Rule out anemia Plan: Labs, UA, pelvic ultrasound Differential Diagnosis Differential Diagnoses: The differential diagnosis associated with the presentation includes As above Admission/Observation Consideration of admission/observation: Escalation of care including admission/observation considered Consult Healthcare Provider Management of the patient was discussed with: Ceramic Worker (OBGYN, Dr. Kendrick) Lab Data [facility] Lab Attestation statement: I reviewed the patient's lab results. 11/03/22 11:16 11/03/22 11:16 Labs: Lab Results 11/03/22 11/03/22 11/03/22 Range/Units 11:16 11:16 13:26 WBC 7.8 (4.8-10.8) X10*3/uL RBC 4.99 (4.20-5.50) X10*6/uL Hgb 12.2 (12.0-16.0) g/dl Hct 38.8 (37.0-47.0) % MCV 77.8 L (80.0-98.0) fL MCH 24.4 L (27.0-33.0) pg MCHC 31.4 (31.0-35.0) g/dl RDW 15.4 (11.0-16.0) % Plt Count 291 (160-400) X10*3/uL MPV 10.0 (9.4-12.3) fL Immature Gran % (Auto) 0.4 (0.0-0.4) % Neut % (Auto) 64.3 (45-73) % Lymph % (Auto) 27.7 (20-40) % Maverick % (Auto) 4.4 (2-11) % Eos % (Auto) 2.3 (0-4) % Baso % (Auto) 0.9 (0-2) % Lymph # (Auto) 2.2 (1.2-4.9) X10*3/uL [place]ick # (Auto) 0.3 (0.1-1.2) X10*3/uL Eos # (Auto) 0.2 (0.0-0.4) X10*3/uL Baso # (Auto) 0.1 (0.0-0.2) X10*3/uL Abs Immat Gran (auto) 0.03 (0.00-0.03) X10*3/uL Absolute Neuts (auto) 5.0 (2.0-8.3) x10*3/uL Absolute Nucleated RBC 0.000 (0.0-0.012) X10*3/uL Nucleated RBC % (auto) 0.0 (0.0-0.2) /100WBC Sodium 138 (135-145) mmol/L Potassium 4.0 (3.3-5.1) mmol/L Chloride 103 (96-108) mmol/L Carbon Dioxide 23 (22-29) mmol/L Anion Gap 16 (12-20) BUN 8 L (9-16) mg/dL Creatinine 0.76 (0.5-1.4) mg/dL Estim Creat Clear Calc 84.1 Estimated GFR > 60 Random Glucose 259 H (60-115) mg/dL Calcium 9.2 (8.4-10.2) mg/dL Total Bilirubin 0.4 (0.0-1.0) mg/dL AST 51 H (5-31) U/L ALT 51 H (0-31) U/L Alkaline Phosphatase 106 (39-117) U/L Total Protein 7.2 (6.5-8.0) g/dL Albumin 3.7 (3.5-5.0) g/dL Lipase 52 (8-78) U/L Urine Color Other A Urine Appearance Hazy Urine pH 7.0 (5.0-9.0) Ur Specific [place] 1.015 (1.005-1.025) Urine Protein Trace (Neg-Trace) mg/dL Urine Glucose (UA) >=1000 H (Negative) mg/dL Urine Ketones Negative (Negative) mg/dL Urine Blood Large (3+) H (Negative) Urine Nitrite Negative (Negative) Ur Leukocyte Esterase Trace H (Negative) Urine RBC >20 H (0-2) /HPF Urine WBC 0-5 (0-5) /HPF Ur Squamous Epith Cells 0-2 (0-2) /HPF Urine Bacteria None Seen (None Seen) Hyaline Casts 0-2 (0-2) /LPF Radiology Impression Discussion of test interpretation with radiology: I have reviewed the radiologist's reading. Independent Historian Clinical information obtained from an independent historian. History obtained from or confirmed by: Spouse External Record Review External record reviewed: Inpatient record, Office record, Outpatient record, Prior outpatient labs, Prior outpatient radiology, Primary care record and Outside ED record Tests considered The following testing was considered but not selected: As above Discharge Plan Discharge Clinical Impression: DUB (dysfunctional uterine bleeding), Adenomyosis Patient Disposition: Home, Self-Care Instructions: Dysfunctional Uterine Bleeding (ED) Additional Instructions: Your blood work is reassuring Your ultrasound showed abnormal thickening of your uterus, it is recommended you have a biopsy outpatient Please call your OBGYN on [facility] for close follow-up If bleeding persists, worsens you develop persistent worsening abdominal pain, nausea/vomiting or fever return to the ED Null an?lisjustin de briana es tranquilizador. Null ultrasonido mostr? un engrosamiento anormal de null ?tero, se recomienda que tenga yovana biopsia ambulatoria Llame a null OBGYN el para un seguimiento cercano Si el sangrado persiste, empeora, presenta un empeoramiento persistente del dolor abdominal, n?useas/v?mitos o fiebre, regresa al servicio de urgencias. Prescriptions: No Action Fem Moist andLub(glyc-min oil) Gel 1 ea vaginal DAILY PRN (Reason: dryness) Qty: 53.6 0RF ferrous sulfate 325 mg (65 mg iron) tablet 325 mg PO DAILY Qty: 30 0RF medroxyprogesterone [Provera] 10 mg tablet 10 mg PO DAILY 14 Days Qty: 14 0RF Referrals: [facility] [place] [facility] [Provider Group] Print Language: [place]
[2022-11-03 13:47] VITALS: BP 156/82; PULSE 56
[2022-11-03 13:48] VITALS: BP 137/82; PULSE 66
[2022-11-03 13:48] LABS: Appearance Urine Hazy; Color Urine Other
[2022-11-03 13:49] LABS: Glucose Urine UA >=1000 mg/dL (Negative); Leukocyte Esterase Urine Trace (Negative); Nitrite Urine Negative (Negative); Specific Gravity - Urine 1.015 (1.005-1.025); UMIC TRIGGER UACC YES; Urine Blood Large (3+) (Negative); Urine Ketones Negative (Negative); Urine Protein Trace mg/dL (Neg-Trace)
[2022-11-03 13:50] LABS: Bacteria Urine None Seen (None Seen); Hyaline Casts Urine 0-2 /LPF (0-2); RBC Urine >20 /HPF (0-2); Squamous Epithelial Cell Urine 0-2 /HPF (0-2); WBC Urine 0-5 /HPF (0-5)
[2022-11-03 14:09] LABS: Lipase 52 U/L (8-78)
--- NOTE | 2022-11-03 15:35 | MHC.EDTECH ---
Assist PA with pelvic exam.
[2022-11-03 15:54] VITALS: BP 178/88; PULSE 62; RESP 16; TEMP 36.6; O2SAT 100
--- NOTE | 2022-11-03 17:41 | P.CONOB_ITS ---
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 - Review of Systems Review of Systems ROS Unobtainable: All systems reviewed & are unremarkable except as noted in HPI and below Cardiovascular: Denies Palpatations, Loss of consciousness or Chest pain Respiratory: Denies Cough, Wheezing or Shortness of breath Musculoskeletal: Denies Low back pain Gastrointestinal: Denies Heartburn, Constipation, Diarrhea, Nausea or Vomiting Genitourinary: Denies Pain with urination, Burning with urination or Urinary frequency Neurological: Denies Migranes Psychological: Denies Depression OB PMFSH Past Medical History Medical History Diabetes Migraines Social History Social History Alcohol intake: never Smoked in Last 30 Days: No Use of substances other than those prescribed or required for medical reasons: No Advance Directives: No Advance Directives Information Provided: Yes Meds Allergies Allergy/AdvReac Type Severity Reaction Status Date / Time No Known Allergies Allergy Verified 11/03/22 10:44 DRILLING FIELD OPERATOR Physical Exam Vitals Vital signs: Temp Pulse Resp BP Pulse Ox O2 Del Method 97.9 F 62 16 178/88 H 100 Room Air 11/03/22 15:54 11/03/22 15:54 11/03/22 15:54 11/03/22 15:54 11/03/22 15:54 11/03/22 15:54 BMI result Body Mass Index 25.2 Constitutional General Appearance: Healthy appearing, Well-nourished and Well-developed Additional Comments: Exam reported byGREY Pedraza Abdomen: Soft nontender except for epigastric tenderness Pelvic exam: No active bleeding cervical, adnexa, uterine tenderness DRILLING FIELD OPERATOR - Results Labs 11/03/22 11:16 11/03/22 11:16 Labs: Short CBC 11/03/22 Range/Units 11:16 WBC 7.8 (4.8-10.8) X10*3/uL Hgb 12.2 (12.0-16.0) g/dl Hct 38.8 (37.0-47.0) % Plt Count 291 (160-400) X10*3/uL BMP 11/03/22 11:16 Sodium 138 Potassium 4.0 Chloride 103 Carbon Dioxide 23 BUN 8 L Creatinine 0.76 Calcium 9.2 Liver Function 11/03/22 Range/Units 11:16 Total Bilirubin 0.4 (0.0-1.0) mg/dL AST 51 H (5-31) U/L ALT 51 H (0-31) U/L Alkaline Phosphatase 106 (39-117) U/L Albumin 3.7 (3.5-5.0) g/dL Urine 11/03/22 Range/Units 13:26 Urine Color Other A Urine Appearance Hazy Urine pH 7.0 (5.0-9.0) Ur Specific [place] 1.015 (1.005-1.025) Urine Protein Trace (Neg-Trace) mg/dL Urine Glucose (UA) >=1000 H (Negative) mg/dL Imaging US - abdomen: Radiologist's impression: ITS Impressions Pelvic/Transvag US 11/03/22 14:07 IMPRESSION: 1. A 4.5 cm transmural fundal myoma with a less than 50% submucosal component, previously 4.8 cm. 2. Uterus is enlarged with heterogeneous myometrial echotexture and Venetian blind shadowing which can be seen in the setting of adenomyosis. Assessment and Plan (1) DUB (dysfunctional uterine bleeding): Status: Inactive Since the patient has normal H&H and no active vaginal bleeding recommended to GREY Pedraza the following: Urine test to be done, the patient would need an endometrial biopsy to rule endometrial pathology and counseling regarding the different options of treatment DUB and myomas in an outpatient setting, recommend close follow-up within 48 hours OBGYN. Instructions to be given to patient to come back in case of heavy vaginal bleeding, pelvic pain, fever above 100.4 or any other concerns. I spent a total of 20 minutes reviewing the chart, communicating the emergency room provider and documenting in the medical record (2) Epigastric pain: Status: Acute Will defer the management and diagnostic workup to emergency room team Time Spent With Patient Time: Total time managing care of this patient today ____ minutes.
== END 2022-11-03 16:21 | disposition home or self-care (01) ==
PROVIDERS: Physician Assistant; Emergency Provider Student in an Organized Health Care Education/Training Program; PCP Family Medicine
DX: N80.03 Adenomyosis of the uterus (principal); E11.9 Type 2 diabetes mellitus without complications; N93.8 Other specified abnormal uterine and vaginal bleeding; Z79.899 Other long term (current) drug therapy
CPT/HCPCS: 36415; 76830; 76856; 80053; 81001; 83690; 85025; 99284

== ENCOUNTER → 2022-11-03 13:20 | Outpatient (BNV) | payer MEDICAID, SELFPAY | PROVIDERS: Emergency Provider Student in an Organized Health Care Education/Training Program; PCP Family Medicine; Visit Provider Obstetrics & Gynecology | DX: N93.8 Other specified abnormal uterine and vaginal bleeding (principal); R10.13 Epigastric pain | CPT/HCPCS: 99283 ==

== ENCOUNTER 2023-05-16 10:32 | Outpatient (REF) | payer MEDICAID, SELFPAY ==
[2023-05-16 11:35] LABS: MANUAL DIFF FLAG NO
[2023-05-16 11:37] LABS: Basophils Absolute Auto 0.1 X10*3/uL (0.0-0.2); Basophils Percent Auto 0.9 % (0-2); Eosinophils Absolute Auto 0.1 X10*3/uL (0.0-0.4); Eosinophils Percent Auto 0.7 % (0-4); Hematocrit 45.3 % (37.0-47.0); Hemoglobin 14.8 g/dl (12.0-16.0); Imm Gran Abs Auto 0.02 X10*3/uL (0.00-0.03); Imm Gran Pct Auto 0.2 % (0.0-0.4); Lymphocytes Absolute Auto 1.8 X10*3/uL (1.2-4.9); Lymphocytes Percent Auto 21.6 % (20-40); Mean Corpuscular HGB Conc 32.7 g/dl (31.0-35.0); Mean Corpuscular Hemoglobin 27.3 pg (27.0-33.0); Mean Corpuscular Volume 83.4 fL (80.0-98.0); Mean Platelet Volume 10.6 fL (9.4-12.3); Monocytes Absolute Auto 0.3 X10*3/uL (0.1-1.2); Monocytes Percent Auto 3.7 % (2-11); Neutrophils Absolute Auto 5.9 x10*3/uL (2.0-8.3); Neutrophils Percent Auto 72.9 % (45-73); Platelet Count 263 X10*3/uL (160-400); Red Blood Count 5.43 X10*6/uL (4.20-5.50); Red Cell Distribution Width 13.9 % (11.0-16.0); White Blood Count 8.1 X10*3/uL (4.8-10.8)
[2023-05-16 11:58] LABS: Estimated Average Glucose 312 mg/dL; Hemoglobin A1c % 12.5 % (<6.0)
[2023-05-16 12:10] LABS: Alanine Aminotransferase 42 U/L (0-31); Albumin Level 4.1 g/dL (3.5-5.0); Alkaline Phosphatase 123 U/L (39-117); Anion Gap 12 (12-20); Aspartate Amino Transferase 28 U/L (5-31); Bilirubin Direct 0.2 mg/dL (0.0-0.5); Bilirubin Total 0.4 mg/dL (0.0-1.0); Blood Urea Nitrogen 13 mg/dL (9-16); Calcium 9.9 mg/dL (8.4-10.2); Carbon Dioxide 26 mmol/L (22-29); Chloride 103 mmol/L (96-108); Cholesterol 292 mg/dL (<200); Estimated Glomerular Filt Rate > 60; Glucose Random 328 mg/dL (60-115); HBS Num1 201.77 mIU/mL (0-7.99); HBsAGNum1 0.26 S/CO (0.00-0.99); HDL Cholesterol 64 mg/dL (>40); HIV AB/AG Nonreactive (Nonreactive); HIV Num 1 0.08 S/CO (0.00-0.99); Hepatitis B Surface Antigen Negative (Negative); Iron 53 mcg/dL (30-160); LDL Cholesterol Calculated 195 mg/dL (<100); Percent Iron Saturation 17 % (15-50); Sodium 137 mmol/L (135-145); Total Iron Binding Capacity 305 mcg/dL (228-428); Triglycerides 166 mg/dL (<150); Unsaturated Iron Binding 252 ug/dL; ~HepC Num1 0.14 S/CO (0.00-0.79); ~Hepatitis B Surface Antibody REACTIVE (Nonreactive); ~Hepatitis C Antibody Nonreactive (Nonreactive)
[2023-05-16 12:19] LABS: Creatinine Urine 38.39 mg/dL; Microalbum/Creatinine Ratio Ur 49.4 ug/mg cr (<30)
[2023-05-16 12:20] LABS: Ferritin 48 ng/mL (10-250); Free T4 (Free Thyroxine) 0.95 ng/dL (0.71-1.85); Thyroid Stimulating Hormone 0.39 uIU/mL (0.32-4.0); Vitamin D 25-OH Total 25.6 ng/mL (>30)
[2023-05-16 12:31] LABS: Vitamin B12 517 pg/mL (200-900)
[2023-05-16 13:49] LABS: CT PCR NOT DETECTED (Not Detect.); NG PCR NOT DETECTED (Not Detect.)
[2023-05-17 12:53] LABS: RPR Rapid Plasma Reagin NON-REACTIVE (NON-REACTIVE)
[2023-05-17 13:44] LABS: Alpha Fetoprotein 2.8 ng/mL
== END 2023-05-16 10:33 | disposition home or self-care (01) ==
LOC: HO.HHCL 10:32
PROVIDERS: Visit Provider Family Medicine
DX: Z00.00 Encounter for general adult medical examination without abnormal findings (principal); K76.0 Fatty (change of) liver, not elsewhere classified; E11.9 Type 2 diabetes mellitus without complications; I10 Essential (primary) hypertension; E78.5 Hyperlipidemia, unspecified; D64.9 Anemia, unspecified; G43.909 Migraine, unspecified, not intractable, without status migrainosus; N20.0 Calculus of kidney; F33.9 Major depressive disorder, recurrent, unspecified
CPT/HCPCS: 0353U; 80048; 80061; 80076; 82043; 82105; 82306; 82570; 82607; 82728; 82746; 83036; 83540; 84439; 84443; 85025; 86592; 86706; 86803; 87340; 87389

== ENCOUNTER 2023-10-08 06:09 | Emergency (ER) | payer MEDICAID, SELFPAY ==
[2023-10-08 06:12] VITALS: BP 146/93; PULSE 95; RESP 18; TEMP 36.3; O2SAT 98; BMI 23.1
[2023-10-08 06:26] LABS: Appearance Urine Cloudy; Color Urine Orange; PH 6.5 (5.0-9.0); Specific Gravity - Urine 1.015 (1.005-1.025); UMIC TRIGGER UACC YES; Urine Ketones Negative (Negative)
[2023-10-08 06:32] LABS: Bacteria Urine None Seen (None Seen); Hyaline Casts Urine 0-2 /LPF (0-2); RBC Urine >20 /HPF (0-2); Squamous Epithelial Cell Urine 0-2 /HPF (0-2); UACC Culture Trigger YES; WBC Urine >50 /HPF (0-5)
[2023-10-08 07:15] VITALS: BP 126/81; PULSE 85; RESP 18; TEMP 36.7; O2SAT 97
--- NOTE | 2023-10-08 07:54 | ED_ITS ---
HPI - Female Genitourinary General Chief complaint: Urogenital-Female Stated complaint: pain when urinating Time Seen by Provider: 10/08/23 06:57 Source: patient Mode of arrival: ambulatory Limitations: language barrier History of Present Illness HPI Narrative: History provided by friend, patient with dysuria and pain for the past few days. No fever or chills. MD elicited complaint: dysuria and UTI Pertinent past history: recurrent UTIs Onset (ago): day(s) Severity: mild Related Data Previous Rx's ?Medication ?Instructions ?Recorded glycerin-mineral oil-polycarbophil 1 ea vaginal DAILY PRN dryness 04/06/20 vaginal gel (Feminine Moisturizer #53.6 grams and Lubricating(glyc-mnOil) vaginal gel) ferrous sulfate 325 mg (65 mg 325 mg PO DAILY #30 tabs 06/11/20 iron) tablet medroxyprogesterone 10 mg tablet 10 mg PO DAILY 14 days #14 tabs 08/15/20 (Provera) cephalexin 500 mg capsule 500 mg PO Q6H #20 caps 10/08/23 Allergies Allergy/AdvReac Type Severity Reaction Status Date / Time No Known Allergies Allergy Verified 10/08/23 06:15 Review of Systems Review of Systems: Yes all other systems are reviewed and are negative Neurologic: Denies Sensory deficit (Neuro) ON LICENSE OF [facility] Past Medical History Medical History Migraines Diabetes Social History Social History Alcohol intake: current Alcohol intake frequency: holidays/special occasions only Alcohol type: beer Smoked in Last 30 Days: Yes Use of substances other than those prescribed or required for medical reasons: No Advance Directives: No Advance Directives Information Provided: No Patient : No Physical Exam Vital Signs: Vital Signs: Last Vital Signs Temp 98.0 F 10/08/23 07:15 Pulse 85 10/08/23 07:15 Resp 18 10/08/23 07:15 BP 126/81 10/08/23 07:15 Pulse Ox 97 10/08/23 07:15 O2 Del Method Room Air 10/08/23 07:15 BMI result Body Mass Index 23.1 Const: General: healthy appearing Nutritional Appearance: average body habitus Orientation/consciousness: oriented to person and patient oriented x3 Limitations: no limitations HEENT: Head: Yes normal to inspection Ears: external ears normal General nose exam: Normal external nose present Mouth: Normal oral and palatal mucosa present and oropharynx normal Throat: Yes posterior oropharynx normal Eyes: General: appearance normal, both eyes and all related structures Neck: Other: supple Neck: Yes normal visual inspection Chest: Chest palpation & inspection: normal inspection of the chest Resp: Auscultation: clear to auscultation bilaterally Cardio: Jugular venous distension: no JVD Rate: regular rate Rhythm: regular rhythm Heart sounds: S1 normal heart sound present and S2 normal heart sound present GI: Inspection: Yes normal to inspection Palpation (GI): Soft to palpation, nontender and No hepatosplenomegaly present Auscultation: normal bowel sounds : General: Yes no CVA tenderness Back/Spine/Pelvis: Back: no CVA tenderness Skin: General skin exam: no rashes or lesions noted Neuro: General: oriented to person and patient oriented x3 Cranial nerves: Yes CN's II-XII intact bilaterally Motor exam (neuro): 5/5 motor strength present throughout Sensory Exam: No Sensory deficit (Neuro) Extrem: General: Yes normal to inspection Psych: Appearance: grossly normal Course Reevaluation(s) Reevaluation #1: UA consistent with UTI will dc on keflex Time: 08:16 Medical Decision Making Differential Diagnosis Differential Diagnoses: The differential diagnosis associated with the presentation includes (UTI, pyelonephritis, vaginal candidiasis) Lab Data Labs: Lab Results 10/08/23 Range/Units 06:20 Urine Color [place] Urine Appearance Cloudy Urine pH 6.5 (5.0-9.0) Ur Specific [place] 1.015 (1.005-1.025) Urine Protein See Note (Neg-Trace) mg/dL Urine Glucose (UA) See Note (Negative) mg/dL Urine Ketones Negative (Negative) mg/dL Urine Blood See Note (Negative) Urine Nitrite See Note (Negative) Ur Leukocyte Esterase See Note (Negative) Urine RBC >20 H (0-2) /HPF Urine WBC >50 H (0-5) /HPF Ur Squamous Epith Cells 0-2 (0-2) /HPF Urine Bacteria None Seen (None Seen) Hyaline Casts 0-2 (0-2) /LPF Independent Historian Clinical information obtained from an independent historian. History obtained from or confirmed by: Friend External Record Review External record reviewed: Outpatient record Chronic Conditions Patient?s care impacted by: Diabetes Social Determinants Patient?s care significantly limited by Social Determinants of Health including: Low income Discharge Plan Discharge Clinical Impression: Urinary tract infection Patient Disposition: Home, Self-Care Instructions: Urinary Tract Infection in Women (DC) Prescriptions: New cephalexin 500 mg capsule 500 mg PO Q6H Qty: 20 0RF No Action Fem Moist andLub(glyc-min oil) Gel 1 ea vaginal DAILY PRN (Reason: dryness) Qty: 53.6 0RF ferrous sulfate 325 mg (65 mg iron) tablet 325 mg PO DAILY Qty: 30 0RF medroxyprogesterone [Provera] 10 mg tablet 10 mg PO DAILY 14 Days Qty: 14 0RF Referrals: Elizabeth Saavedra DO [Primary Care Provider] - 1 week Print Language: Uzbek
[2023-10-08] MEDS: cephALEXin 500 MG CAPSULE PO (08:31)
[2023-10-08 08:35] VITALS: BP 126/81; PULSE 85; RESP 18; TEMP 36.7; O2SAT 97
--- NOTE | 2023-10-08 08:35 | PC.NURSE ---
abx administered per provider order.
== END 2023-10-08 08:35 | disposition home or self-care (01) ==
PROVIDERS: Emergency Provider Emergency Medicine; PCP Family Medicine
DX: N39.0 Urinary tract infection, site not specified (principal); Z87.440 Personal history of urinary (tract) infections
CPT/HCPCS: 81001; 87086; 87088; 87186; 99283; 99284

== ENCOUNTER 2023-11-02 21:42 | Emergency (ER) | payer MEDICAID, SELFPAY ==
[2023-11-02 21:56] VITALS: BP 150/85; PULSE 99; RESP 14; TEMP 36.5; O2SAT 98
[2023-11-02 22:05] VITALS: BP 134/80; BP 150/88; PULSE 101; PULSE 96; RESP 20; TEMP 36.5; O2SAT 98; O2SAT 99; BMI 23.5
[2023-11-02 22:44] LABS: Glucose, Whole Blood 323 mg/dL (60-115)
[2023-11-02 22:57] LABS: Hematocrit 42.4 % (37.0-47.0); Hemoglobin 14.2 g/dl (12.0-16.0); Mean Corpuscular HGB Conc 33.5 g/dl (31.0-35.0); Mean Corpuscular Hemoglobin 27.5 pg (27.0-33.0); Mean Corpuscular Volume 82.2 fL (80.0-98.0); Platelet Count 227 X10*3/uL (160-400); Red Blood Count 5.16 X10*6/uL (4.20-5.50); White Blood Count 11.5 X10*3/uL (4.8-10.8)
[2023-11-02 22:59] LABS: Appearance Urine Clear; Color Urine Yellow; Glucose Urine UA >=1000 mg/dL (Negative); Leukocyte Esterase Urine Negative (Negative); Nitrite Urine Positive (Negative); PH 6.5 (5.0-9.0); Specific Gravity - Urine >= 1.030 (1.005-1.025); UMIC TRIGGER UACC YES; Urine Blood Trace (Negative); Urine Ketones Negative (Negative); Urine Protein Negative (Neg-Trace)
[2023-11-02 23:09] LABS: Bacteria Urine 4+ (None Seen); Hyaline Casts Urine 0-2 /LPF (0-2); Squamous Epithelial Cell Urine 0-2 /HPF (0-2); UACC Culture Trigger YES; WBC Urine 21-50 /HPF (0-5)
--- NOTE | 2023-11-02 23:10 | ED_ITS ---
HPI - Female Genitourinary General Chief complaint: Urogenital-Female Stated complaint: Lower back pain, hyperglycemia; POC 540 Time Seen by Provider: 11/02/23 22:39 Source: patient Mode of arrival: ambulatory Limitations: no limitations History of Present Illness ED Provider: Dr. Alayna Blas HPI Narrative: Patient comes to the emergency room complaining of left-sided flank pain, dysuria for about 3 days. Patient states that about a 2 weeks ago she finished a course of antibiotics with cephalexin for a UTI. Patient states that about a week after she finished her antibiotics, she started developing via, and over the last 3 days she developed flank pain. Patient denies nausea vomiting or diarrhea, no fever or chills. Also, patient states that when she called the ambulance, they checked her glucose and it was 544 EMS. Patient states that she hardly ever sees dose numbers being that high. Patient is compliant with her insulin Related Data Previous Rx's ?Medication ?Instructions ?Recorded glycerin-mineral oil-polycarbophil 1 ea vaginal DAILY PRN dryness 04/06/20 vaginal gel (Feminine Moisturizer #53.6 grams and Lubricating(glyc-mnOil) vaginal gel) ferrous sulfate 325 mg (65 mg 325 mg PO DAILY #30 tabs 06/11/20 iron) tablet medroxyprogesterone 10 mg tablet 10 mg PO DAILY 14 days #14 tabs 08/15/20 (Provera) cephalexin 500 mg capsule 500 mg PO Q6H #20 caps 10/08/23 sulfamethoxazole 800 1 tab PO BID #10 tabs 11/02/23 mg-trimethoprim 160 mg tablet (Bactrim DS) Allergies Allergy/AdvReac Type Severity Reaction Status Date / Time No Known Allergies Allergy Verified 11/02/23 22:31 Review of Systems 2 Review of Systems: Constitutional : No Weight loss, No Fever, No Chills, No Night Sweats, No Fatigue, No Malaise ENT/Mouth : No Hearing loss, No Ear Pain, No Nasal Congestion, No Sinus Pain, No Hoarseness, No sore throat, No Rhinorrhea, No Swallowing Difficulty Eyes: No Eye Pain, No Swelling, No Redness, No Foreign Body, No Discharge, No Vision Changes Cardiovascular : No Chest Pain, No SOB, No Dyspnea on Exertion, No Orthopnea, No Edema, No Palpitations Respiratory : No Cough, No Sputum, No Wheezing, No Smoke Exposure, No Dyspnea Gastrointestinal : No Nausea, No Vomiting, No Diarrhea, No Constipation, No abdominal Pain, No Hematochezia, No Melena Genitourinary : no irregular bleeding, complaining Dysuria, No Urinary Frequency, No Hematuria, No Urinary Incontinence, No Urgency, complaining of left-sided Flank Pain, No Urinary Flow Changes, No Hesitancy Musculoskeletal : No joint pain, No Myalgias, No Joint Swelling Skin : No Skin Lesions, No rash Neuro : No Weakness, No Numbness, No Paresthesias, No Loss of Consciousness, No Dizziness, No Headache Psych : No Anxiety/Panic, No Depression, No SI/HI/AH/VH, No Social Issues, Heme/Lymph: No Bruising, No Bleeding,No Lymphadenopathy Endocrine : Elevated glucose levels, No Polyuria, No Polydipsia, No Temperature Intolerance PMFSH Past Medical History Medical History Migraines Diabetes Social History Social History Alcohol intake: never Smoked in Last 30 Days: Yes Use of substances other than those prescribed or required for medical reasons: No Advance Directives: No Advance Directives Information Provided: Yes Do you have a plan to hurt others: No Plan Patient : No Physical Exam 2 Vital Signs: Vital Signs: Last Vital Signs Temp 97.7 F 11/02/23 22:05 Pulse 101 H 11/02/23 22:05 Resp 20 11/02/23 22:05 BP 150/88 H 11/02/23 22:05 Pulse Ox 99 11/02/23 22:05 O2 Del Method Room Air 11/02/23 22:05 BMI result Body Mass Index 23.5 Const: Other: Appearance: Alert. Oriented X3. No acute distress. Well-appearing Eyes: Pupils equal, round and reactive to light. ENT: Pharynx normal. Neck: Normal inspection. Neck supple. No lymph nodes noted. No crepitus CVS: Normal heart rate and rhythm. Pulses normal. Normal S1 and S2 Respiratory: No respiratory distress. Breath sounds normal. No Wheezing. No rales Abdomen: Soft and nontender. No rigidity. No distention. Mild decided flank pain, no rebound no guarding Skin: Skin warm and dry. Normal skin color. Normal skin turgor. Extremities: No lower extremity edema. No Lacerations. No Rash Neuro: Oriented X 3. No motor deficit. No sensory deficit. Moving all extremities. No slurred speech. CN 2 through 12 grossly intact Psych: calm, cooperative, normal affect Medications Administered Discontinued Medications Generic Name Dose Route Start Last Admin Trade Name Jessica PRN Reason Stop Dose Admin Sodium Chloride 1,000 mls @ 999 mls/hr 11/02/23 22:58 11/02/23 23:18 Ns IVCONT 11/02/23 23:58 999 mls/hr .Q1H1M ONE Administration Insulin Human Regular 10 unit 11/02/23 22:58 11/02/23 23:18 Insulin Regular, Human 100 Unit/Ml 10 Ml Vial IVPUSH 11/02/23 22:59 10 unit ONCE ONE Administration Trimethoprim/Sulfamethoxazole 1 tab 11/02/23 23:10 11/02/23 23:18 Sulfamethox/Trimeth 800/160 Tablet PO 11/02/23 23:11 1 tab ONCE ONE Administration Medical Decision Making Medical Decision Making MDM Narrative: -my interpretation of labs, white blood cell count slightly elevated 11.5, urinalysis positive for UTI -I reviewed patient's urine sensitivity from her previous visit in the ED, the urine grew Staphylococcus saprophyticus, resistant to penicillin, sensitive to Bactrim, tetracycline and nitrofurantoin. -patient was given the 1st dose of Bactrim in the emergency room -patient's blood pressure on the elevated side, on physical exam heart rate in the low 80s, no fever, sepsis is not suspected -patient has pyelonephritis when not sepsis -point of care 323, patient receiving IV fluids and insulin -discussed with the patient that the UTI may be the cause that her glucose is not well controlled. At this time, we will not change any of her medications for diabetes. Differential Diagnosis Differential Diagnoses: The differential diagnosis associated with the presentation includes (UTI, hyperglycemia, pyelonephritis) Admission/Observation Consideration of admission/observation: Escalation of care including admission/observation considered (Given patient's elevated glucose and TI symptoms/pyelonephritis, observation was considered) Lab Data 11/02/23 22:52 11/02/23 22:52 Labs: Lab Results 11/02/23 11/02/23 Range/Units 22:39 22:52 WBC 11.5 H (4.8-10.8) X10*3/uL RBC 5.16 (4.20-5.50) X10*6/uL Hgb 14.2 (12.0-16.0) g/dl Hct 42.4 (37.0-47.0) % MCV 82.2 (80.0-98.0) fL MCH 27.5 (27.0-33.0) pg MCHC 33.5 (31.0-35.0) g/dl RDW 13.0 (11.0-16.0) % Plt Count 227 (160-400) X10*3/uL MPV 10.0 (9.4-12.3) fL Absolute Nucleated RBC 0.000 (0.0-0.012) X10*3/uL Nucleated RBC % (auto) 0.0 (0.0-0.2) /100WBC Sodium 136 (135-145) mmol/L Potassium 3.8 (3.3-5.1) mmol/L Chloride 107 (96-108) mmol/L Carbon Dioxide 20 L (22-29) mmol/L Anion Gap 13 (12-20) BUN 10 (9-16) mg/dL Creatinine 0.81 (0.5-1.4) mg/dL Estim Creat Clear Calc 71.7 Estimated GFR > 60 POC Glucose 323 H (60-115) mg/dL Random Glucose 350 H* (60-115) mg/dL Calcium 9.2 D (8.4-10.2) mg/dL Total Bilirubin 0.5 (0.0-1.0) mg/dL AST 18 (5-31) U/L ALT 23 (0-31) U/L Alkaline Phosphatase 143 H (39-117) U/L Total Protein 7.5 (6.5-8.0) g/dL Albumin 3.8 (3.5-5.0) g/dL Beta-Hydroxybutyrate 0.07 (0.02-0.27) mmol/L Urine Color Yellow Urine Appearance Clear Urine pH 6.5 (5.0-9.0) Ur Specific [place] >= 1.030 H (1.005-1.025) Urine Protein Negative (Neg-Trace) mg/dL Urine Glucose (UA) >=1000 H (Negative) mg/dL Urine Ketones Negative (Negative) mg/dL Urine Blood Trace H (Negative) Urine Nitrite Positive H (Negative) Ur Leukocyte Esterase Negative (Negative) Urine RBC 3-5 H (0-2) /HPF Urine WBC 21-50 H (0-5) /HPF Ur Squamous Epith Cells 0-2 (0-2) /HPF Urine Bacteria 4+ (None Seen) Hyaline Casts 0-2 (0-2) /LPF Critical Care Time Critical Care Time Critical Care Time: Yes Total Critical Care Time: 35 Attestation: I have personally provided critical care time. Time includes review of lab data, radiology results, discussion with consultants, and monitoring for potential decompensation. Intervention performed as documented. Discharge Plan Discharge Clinical Impression: Pyelonephritis, Acute hyperglycemia Patient Disposition: Home, Self-Care Instructions: Kidney Infection (ED), Diabetic Hyperglycemia (ED) Additional Instructions: Please follow-up with your primary care physician tomorrow. If you have any worsening or new symptoms, please return to the emergency room or call 911 Prescriptions: New sulfamethoxazole-trimethoprim [Bactrim DS] 800-160 mg tablet 1 tab PO BID Qty: 10 0RF No Action Fem Moist andLub(glyc-min oil) Gel 1 ea vaginal DAILY PRN (Reason: dryness) Qty: 53.6 0RF ferrous sulfate 325 mg (65 mg iron) tablet 325 mg PO DAILY Qty: 30 0RF medroxyprogesterone [Provera] 10 mg tablet 10 mg PO DAILY 14 Days Qty: 14 0RF cephalexin 500 mg capsule 500 mg PO Q6H Qty: 20 0RF Print Language: Turkmen
[2023-11-02] MEDS: Insulin Regular, Human 100 UNIT/ML 10 ML VIAL 10 UNIT IVPUSH (23:18)
[2023-11-02] MEDS: 0.9 % Sodium Chloride 1,000 ML 999 ML IVCONT (23:18)
[2023-11-02] MEDS: Sulfamethox/Trimeth 800/160 TABLET 1 TAB PO (23:18)
[2023-11-02 23:24] LABS: Beta-Hydroxybutyrate 0.07 mmol/L (0.02-0.27)
[2023-11-02 23:26] LABS: Alanine Aminotransferase 23 U/L (0-31); Albumin Level 3.8 g/dL (3.5-5.0); Alkaline Phosphatase 143 U/L (39-117); Anion Gap 13 (12-20); Aspartate Amino Transferase 18 U/L (5-31); Bilirubin Total 0.5 mg/dL (0.0-1.0); Blood Urea Nitrogen 10 mg/dL (9-16); Calcium 9.2 mg/dL (8.4-10.2); Carbon Dioxide 20 mmol/L (22-29); Chloride 107 mmol/L (96-108); Creatinine Clr Calc Pharmacy 71.7; Estimated Glomerular Filt Rate > 60; Glucose Random 350 mg/dL (60-115); Potassium 3.8 mmol/L (3.3-5.1); Sodium 136 mmol/L (135-145); Total Protein 7.5 g/dL (6.5-8.0)
[2023-11-03 00:34] VITALS: BP 123/74; PULSE 99; RESP 14; TEMP 36.4; O2SAT 98
[2023-11-03 00:40] LABS: Glucose, Whole Blood 177 mg/dL (60-115)
[2023-11-03 01:19] VITALS: BP 112/73; PULSE 100; RESP 16; TEMP 37.4; O2SAT 96
== END 2023-11-03 01:20 | disposition home or self-care (01) ==
PROVIDERS: Emergency Provider Emergency Medicine; PCP Family Medicine
DX: N12 Tubulo-interstitial nephritis, not specified as acute or chronic (principal); E11.65 Type 2 diabetes mellitus with hyperglycemia
CPT/HCPCS: 36415; 80053; 81001; 82010; 82947; 85027; 87086; 87088; 87186; 96374; 99284

== ENCOUNTER 2023-12-11 11:00 | Emergency (ER) | payer MEDICAID, SELFPAY ==
--- NOTE | ~2023-12-11 | XR_ITS ---
EXAMINATION: XR CHEST CLINICAL INFORMATION: Chest pain COMPARISON: 05/17/2019 TECHNIQUE: 4 views of the chest were obtained. FINDINGS: No significant abnormality is noted involving the heart, lungs, mediastinum, bony thorax or soft tissues. XR/XR chest 2V IMPRESSION: No active disease. Electronically signed by: German Luciano MD 12/11/2023 04:45 PM EDT
[2023-12-11 11:23] VITALS: BP 123/71; PULSE 124; RESP 18; TEMP 38.1; O2SAT 96; BMI 22.8
--- NOTE | 2023-12-11 11:28 | ED_ITS ---
HPI - General Adult General Chief complaint: Upper Respiratory Symptoms Stated complaint: flu symptoms Related Data Previous Rx's ?Medication ?Instructions ?Recorded glycerin-mineral oil-polycarbophil 1 ea vaginal DAILY PRN dryness 04/06/20 vaginal gel (Feminine Moisturizer #53.6 grams and Lubricating(glyc-mnOil) vaginal gel) ferrous sulfate 325 mg (65 mg 325 mg PO DAILY #30 tabs 06/11/20 iron) tablet medroxyprogesterone 10 mg tablet 10 mg PO DAILY 14 days #14 tabs 08/15/20 (Provera) cephalexin 500 mg capsule 500 mg PO Q6H #20 caps 10/08/23 sulfamethoxazole 800 1 tab PO BID #10 tabs 11/02/23 mg-trimethoprim 160 mg tablet (Bactrim DS) Allergies Allergy/AdvReac Type Severity Reaction Status Date / Time No Known Allergies Allergy Verified 12/11/23 11:27 [facility] Past Medical History Medical History Migraines Diabetes Social History Social History Alcohol intake: never Advance Directives: No Advance Directives Information Provided: No Do you have a plan to hurt others: No Plan Physical Exam ED Vital Signs: Vital Signs - 24 hr 12/11/23 11:23 Temperature 100.6 F H Pulse Rate 124 H Respiratory Rate 18 Blood Pressure 123/71 Pulse Oximetry 96 Oxygen Delivery Method Room Air BMI result Body Mass Index 22.8 Course Course Course Narrative: RME, this is a rapid medical exam performed by Everardo Story please refer to primary provider for complete H&P- 53-year-old female presents for evaluation of body aches and cough for 3 weeks. She has had a fever for the last 4 days since receiving a pneumonia vaccine on Saturday. Reevaluation(s) Reevaluation #1: Multiple attempts were made to get a hold of the patient, we received critical information, 1 of the blood cultures screened positive for gram-negative rods. I left a message on the patient's voicemail. I also tried to call her spouse, who is listed as her primary contact, numerous times. I was unable to leave a message with him. Time: 01:08 Medical Decision Making Lab Data 12/11/23 11:47 12/11/23 11:47 Labs: Lab Results 12/11/23 12/11/23 Range/Units 11:47 16:31 WBC 11.8 H (4.8-10.8) X10*3/uL RBC 4.34 (4.20-5.50) X10*6/uL Hgb 11.7 L (12.0-16.0) g/dl Hct 35.1 L (37.0-47.0) % MCV 80.9 (80.0-98.0) fL MCH 27.0 (27.0-33.0) pg MCHC 33.3 (31.0-35.0) g/dl RDW 13.4 (11.0-16.0) % Plt Count 241 (160-400) X10*3/uL MPV 9.7 (9.4-12.3) fL Immature Gran % (Auto) Cancelled Neut % (Auto) Cancelled Lymph % (Auto) Cancelled [place] % (Auto) Cancelled Eos % (Auto) Cancelled Baso % (Auto) Cancelled Lymph # (Auto) Cancelled [place] # (Auto) Cancelled Eos # (Auto) Cancelled Baso # (Auto) Cancelled Abs Immat Gran (auto) Cancelled Absolute Neuts (auto) Cancelled Absolute Nucleated RBC 0.000 (0.0-0.012) X10*3/uL Nucleated RBC % (auto) 0.0 (0.0-0.2) /100WBC Neutrophils % (Manual) 91 H (45-73) % Band Neutrophils % 7 H (3-5) % Lymphocytes % (Manual) 2 L (20-40) % Abs Neuts (Manual) 11.6 H (2.0-8.3) X10*3/uL Lymphocytes # (Manual) 0.2 L (1.2-4.9) X10*3/uL Toxic Granulation PRESENT Platelet Estimate NORMAL (NORMAL) Plt Morphology Comment NORMAL RBC Morphology NORMAL Smear Tech's Comments MANUAL DIFF Sodium 130 L (135-145) mmol/L Potassium 3.8 (3.3-5.1) mmol/L Chloride 99 (96-108) mmol/L Carbon Dioxide 20 L (22-29) mmol/L Anion Gap 15 (12-20) BUN 10 (9-16) mg/dL Creatinine 0.83 (0.5-1.4) mg/dL Estim Creat Clear Calc 69.2 Estimated GFR > 60 Random Glucose 408 H* (60-115) mg/dL Lactic Acid 1.7 (0.5-2.0) mmol/L Calcium 9.3 (8.4-10.2) mg/dL Total Bilirubin 1.1 H (0.0-1.0) mg/dL AST 12 (5-31) U/L ALT 11 (0-31) U/L Alkaline Phosphatase 125 H (39-117) U/L Total Protein 7.2 (6.5-8.0) g/dL Albumin 3.4 L (3.5-5.0) g/dL Lipase 31 (8-78) U/L Urine Color Yellow Urine Appearance Cloudy Urine pH 6.0 (5.0-9.0) Ur Specific [place] >= 1.030 H (1.005-1.025) Urine Protein Negative (Neg-Trace) mg/dL Urine Glucose (UA) >=1000 H (Negative) mg/dL Urine Ketones Negative (Negative) mg/dL Urine Blood Large (3+) H (Negative) Urine Nitrite Negative (Negative) Ur Leukocyte Esterase Small (1+) H (Negative) Urine RBC >20 H (0-2) /HPF Urine WBC >50 H (0-5) /HPF Ur Squamous Epith Cells 0-2 (0-2) /HPF Urine Bacteria 1+ (None Seen) Hyaline Casts 0-2 (0-2) /LPF Influenza Type A (PCR) NEGATIVE (Negative) Influenza Type B (PCR) NEGATIVE (Negative) RSV RNA Qual (PCR) NEGATIVE (Negative) SARS-CoV-2 RNA (RT-PCR) NEGATIVE (Negative) Discharge Plan Discharge Clinical Impression: Myalgia Patient Disposition: Left W/O Completing Treatment Prescriptions: No Action Fem Moist andLub(glyc-min oil) Gel 1 ea vaginal DAILY PRN (Reason: dryness) Qty: 53.6 0RF ferrous sulfate 325 mg (65 mg iron) tablet 325 mg PO DAILY Qty: 30 0RF medroxyprogesterone [Provera] 10 mg tablet 10 mg PO DAILY 14 Days Qty: 14 0RF cephalexin 500 mg capsule 500 mg PO Q6H Qty: 20 0RF sulfamethoxazole-trimethoprim [Bactrim DS] 800-160 mg tablet 1 tab PO BID Qty: 10 0RF Discharge Date/Time: 12/11/23 19:00
[2023-12-11 11:55] LABS: Hematocrit 35.1 % (37.0-47.0); Hemoglobin 11.7 g/dl (12.0-16.0); Mean Corpuscular HGB Conc 33.3 g/dl (31.0-35.0); Mean Corpuscular Volume 80.9 fL (80.0-98.0); Mean Platelet Volume 9.7 fL (9.4-12.3); Platelet Count 241 X10*3/uL (160-400); Red Blood Count 4.34 X10*6/uL (4.20-5.50); Red Cell Distribution Width 13.4 % (11.0-16.0); White Blood Count 11.8 X10*3/uL (4.8-10.8)
[2023-12-11 12:07] LABS: Lactic Acid 1.7 mmol/L (0.5-2.0)
[2023-12-11 12:15] LABS: Alanine Aminotransferase 11 U/L (0-31); Albumin Level 3.4 g/dL (3.5-5.0); Alkaline Phosphatase 125 U/L (39-117); Anion Gap 15 (12-20); Aspartate Amino Transferase 12 U/L (5-31); Bilirubin Total 1.1 mg/dL (0.0-1.0); Blood Urea Nitrogen 10 mg/dL (9-16); Calcium 9.3 mg/dL (8.4-10.2); Carbon Dioxide 20 mmol/L (22-29); Chloride 99 mmol/L (96-108); Creatinine Clr Calc Pharmacy 69.2; Estimated Glomerular Filt Rate > 60; Glucose Random 408 mg/dL (60-115); Lipase 31 U/L (8-78); Potassium 3.8 mmol/L (3.3-5.1); Sodium 130 mmol/L (135-145); Total Protein 7.2 g/dL (6.5-8.0)
[2023-12-11 12:30] LABS: Influenza A PCR NEGATIVE (Negative); Influenza B PCR NEGATIVE (Negative); Resp Syncy Virus RNA Qual PCR NEGATIVE (Negative); SARS COV2 PCR INHOUSE NEGATIVE (Negative)
[2023-12-11 12:34] LABS: SLIDE REVIEW MANUAL DIFF
[2023-12-11 12:36] LABS: Band Neutrophils Percent 7 % (3-5); Lymphocytes Absolute Manual 0.2 X10*3/uL (1.2-4.9); Lymphocytes Percent Manual 2 % (20-40); Neutrophils Absolute Manual 11.6 X10*3/uL (2.0-8.3); Neutrophils Percent Manual 91 % (45-73)
[2023-12-11 12:38] LABS: Platelet Estimate NORMAL (NORMAL); Platelet Morphology Comment NORMAL; RBC Morphology NORMAL; Toxic Granulation PRESENT
[2023-12-11 16:37] LABS: Appearance Urine Cloudy; Color Urine Yellow; Glucose Urine UA >=1000 mg/dL (Negative); Leukocyte Esterase Urine Small (1+) (Negative); Nitrite Urine Negative (Negative); Specific Gravity - Urine >= 1.030 (1.005-1.025); UMIC TRIGGER UACC YES; Urine Blood Large (3+) (Negative); Urine Ketones Negative (Negative); Urine Protein Negative (Neg-Trace)
[2023-12-11 16:39] LABS: Bacteria Urine 1+ (None Seen); Hyaline Casts Urine 0-2 /LPF (0-2); RBC Urine >20 /HPF (0-2); Squamous Epithelial Cell Urine 0-2 /HPF (0-2); UACC Culture Trigger YES; WBC Urine >50 /HPF (0-5)
== END 2023-12-11 19:00 | disposition left against medical advice (07) ==
PROVIDERS: Physician Assistant; Emergency Provider Emergency Medicine
DX: M79.10 Myalgia, unspecified site (principal); R05.9 Cough, unspecified; R52 Pain, unspecified; E11.9 Type 2 diabetes mellitus without complications; Z03.818 Encounter for observation for suspected exposure to other biological agents ruled out
CPT/HCPCS: 0241U; 71046; 80053; 81001; 83605; 83690; 85007; 85025; 85027; 87040; 87077; 87086; 87088; 87186; 87205; 99282; 99283

== ENCOUNTER 2023-12-12 06:41 | Inpatient (IN) | payer MEDICAID, SELFPAY ==
[2023-12-12] VITALS (11 sets, daily range): BP systolic 94–154; BP diastolic 54–82; PULSE 87–116; RESP 15–20; TEMP 36.1–39.5; O2SAT 92–100; BMI 22.3
--- NOTE | ~2023-12-12 | FL_ITS ---
EXAMINATION: FL guidance in OR CLINICAL INFORMATION: right ureteral stone COMPARISON: CT abdomen and pelvis from earlier same day TECHNIQUE: Fluoroscopic assistance and imaging assistance was provided during retrograde pyelogram for Duglas Gonzalez MD. 1 images and a dose report were submitted. FLUOROSCOPY TIME: 7.7 seconds DOSE AREA PRODUCT: 1.86 mGym2 (milligray-meters squared) FINDINGS/ FL/FL guidance in OR IMPRESSION: Single provided image demonstrates a catheter overlying the right proximal ureter/renal pelvis with contrast partially opacifying the right renal pelvis. Please correlate to Duglas Gonzalez MD's procedure report for further details. Electronically signed by: Alirio Price MD 12/16/2023 10:10 AM EDT
--- NOTE | ~2023-12-12 | US_ITS ---
EXAMINATION: US RETROPERITONEAL COMPLETE (RENAL) CLINICAL INFORMATION: UTI. COMPARISON: CT abdomen/pelvis 08/20/2019. Renal ultrasound 05/12/2020. TECHNIQUE: Real-time imaging of the kidneys and bladder. FINDINGS: RIGHT KIDNEY: 11.7 x 6.7 x 6.5 cm (SAG x AP x TRV). The kidney is normal in size, contour, and echogenicity. Renal cortical thickness is normal. Mild hydronephrosis. Multiple renal calculi largest measuring 0.4 cm in the interpolar kidney. Multiple simple appearing cysts largest measuring 1.4 cm in the lateral interpolar kidney. Scattered punctate hyperechoic foci that could represent a combination of calculi and vascular calcifications. LEFT KIDNEY: 12.5 x 6 x 6.1 cm (SAG x AP x TRV). The kidney is normal in size, contour, and echogenicity. Renal cortical thickness is normal. No hydronephrosis. Nonobstructive 0.3 cm calculus in the interpolar kidney. Scattered punctate hyperechoic foci that could represent a combination of calculi and vascular calcifications. There is a 2.1 x 1.9 x 2.4 cm complex cystic appearing lesion in the lower pole with suggestion of an internal solid nodule, this is not seen on prior examinations. There are multiple additional simple appearing cysts largest measuring 1.5 cm in the upper pole. US/US renal BI IMPRESSION: 1. Mild right-sided hydronephrosis. Further evaluation with CT abdomen/pelvis could be obtained as clinically warranted if there are concerns for obstructive uropathy. 2. Bilateral renal calculi. 3. Complex cystic lesion in the lower pole of the left kidney with suggestion of an internal solid nodule; recommend further characterization with renal MRI with and without IV contrast. The report will be called to the ordering clinician by a [facility] [facility] Physician Bank Clerk. Electronically signed by: Flor Hernandez MD 12/12/2023 11:55 AM EDT
--- NOTE | ~2023-12-12 | CT_ITS ---
EXAMINATION: CT ABDOMEN AND PELVIS WITHOUT CONTRAST CLINICAL INFORMATION: Urine tract infection; question obstructive uropathy. COMPARISON: Renal ultrasound dated 12/12/2023. TECHNIQUE: Multidetector volumetric imaging was performed from the superior aspect of the liver through the pubic symphysis. Sagittal and coronal reformatted images were obtained on the technologist's workstation. This CT examination was performed using dose optimization techniques as appropriate, variously including the following: *Automated exposure control *Adjustment of mA and/or kV according to patient size (this includes techniques or standardized protocols for targeted exams where dose is matched to indication/reason for exam; i.e. extremities or head) *Use of iterative reconstruction technique DLP: 461 mGy-cm FINDINGS: LUNG BASES: There are very small bilateral dependent pleural effusions, with adjacent compressive atelectasis. LIVER, GALLBLADDER, AND BILIARY TREE: The liver is normal in size, shape, and attenuation. No focal hepatic lesion or biliary ductal dilatation is present. The gallbladder is unremarkable with no evidence of radiopaque gallstones, gallbladder wall thickening, or obvious pericholecystic inflammatory changes. PANCREAS: Unremarkable. SPLEEN: There is splenomegaly, with a longitudinal span in the coronal plane of 14.4 cm (7:57). No focal finding. ADRENAL GLANDS: Unremarkable. KIDNEYS AND URETERS: The kidneys are normal in size, shape, and attenuation. At the lower pole of the right kidney (3:36 and 37), 1 mm and 7 mm nonobstructing calculi are seen. There is mild right hydronephroureter secondary to an approximately 2 mm calculus at the right ureterovesicular junction (3:76). There are a few tiny 1-3 mm nonobstructing left renal upper and lower pole calculi. No left ureteric calculus is seen, and there is no left hydronephroureter. There is mild nonspecific bilateral perinephric stranding. BLADDER: Unremarkable. GASTROINTESTINAL TRACT: The small and large bowel are unremarkable. The appendix is unremarkable. ABDOMINAL WALL: There is a small fat-containing umbilical hernia. LYMPH NODES: Normal. VASCULAR: Unremarkable. PELVIC VISCERA: The uterus and adnexa are unremarkable. There is moderate free fluid in the dependent pelvis and the adnexal regions. OSSEOUS STRUCTURES: There is multi-level mild thoracolumbar spondylosis. No acute or aggressive osseous finding is noted. CT/CT abdomen pelvis wo IV con IMPRESSION: 1. There are nonobstructing bilateral renal calculi. There is mild right hydronephroureter secondary to a 2 mm calculus at the right ureterovesicular junction. 2. There is splenomegaly. 3. There is moderate pelvic free fluid. 4. There is multi-level mild thoracolumbar spondylosis. 5. There are very small dependent pleural effusions, with adjacent compressive atelectasis. Fleischner guidelines were followed. Electronically signed by: Jeanmarie Lovelace MD 12/13/2023 10:52 PM EDT
--- NOTE | 2023-12-12 07:17 | ED_ITS ---
HPI - General Adult General Chief complaint: Recheck/Abnormal Lab/Rx Stated complaint: abnormal labs Time Seen by Provider: 12/12/23 07:16 Source: patient Mode of arrival: ambulatory Limitations: no limitations History of Present Illness ED Provider: Rimma DORSEY HPI narrative: This is a 53-year-old female history of UTIs reporting cough, fatigue, malaise, myalgias ongoing for the past 3 weeks. She reports it got worse the past 4 days, where she had a fever, but she noticed that this started after getting the pneumonia vaccine. She reports she was seen here yesterday, the wait was very long so decided to go home. Reports mild changes in urination such as frequency, darkened color and smell. She reports associated nausea, without vomiting. Denies chest pain, shortness of breath, vomiting, abdominal pain, headache, vision changes, dizziness and weakness. Related Data Previous Rx's ?Medication ?Instructions ?Recorded glycerin-mineral oil-polycarbophil 1 ea vaginal DAILY PRN dryness 04/06/20 vaginal gel (Feminine Moisturizer #53.6 grams and Lubricating(glyc-mnOil) vaginal gel) ferrous sulfate 325 mg (65 mg 325 mg PO DAILY #30 tabs 06/11/20 iron) tablet medroxyprogesterone 10 mg tablet 10 mg PO DAILY 14 days #14 tabs 08/15/20 (Provera) cephalexin 500 mg capsule 500 mg PO Q6H #20 caps 10/08/23 sulfamethoxazole 800 1 tab PO BID #10 tabs 11/02/23 mg-trimethoprim 160 mg tablet (Bactrim DS) Allergies Allergy/AdvReac Type Severity Reaction Status Date / Time No Known Allergies Allergy Verified 12/12/23 06:51 Review of Systems 2 Review of Systems: Yes all other systems are reviewed and are negative PMFSH Past Medical History Attestation statement: The following information was validated with the patient. Source: old records reviewed and nursing notes reviewed Medical History Migraines Diabetes Social History Social History Alcohol intake: never Advance Directives: No Advance Directives Information Provided: No Do you have a plan to hurt others: No Plan Physical Exam ED Vital Signs: Vital Signs - 24 hr 12/12/23 06:49 12/12/23 07:52 Temperature 98.5 F 97.0 F Pulse Rate 104 H 96 Respiratory Rate 18 16 Blood Pressure 103/67 108/64 Pulse Oximetry 100 97 Oxygen Delivery Method Room Air Room Air BMI result Body Mass Index 22.3 vss Appearance: Alert.? Oriented X3.? No acute distress.? Head: Normocephalic, atraumatic, no step-offs or deformities Eyes: Pupils equal, round and reactive to light.? CVS: Normal heart rate and rhythm.? Pulses normal.? Respiratory: No respiratory distress.? Breath sounds normal.? Abdomen: Soft and nontender, no suprapubic pain. Skin: Skin warm and dry.? Normal skin color.? Normal skin turgor.? Extremities: No lower extremity edema.? No calf ttp. 5/5 strength to bilateral upper and lower extremities Back: No midline tenderness, no C-spine tenderness, full range of motion, no CVA tenderness bilaterally Neuro: Oriented X 3.? No motor deficit.? No sensory deficit. CN 2-12 intact Course Reevaluation(s) Reevaluation #1: CBC with leukocytosis and slight left shift. Chemistry unremarkable no acute findings needing intervention. Glucose is elevated will give fluids as well as insulin. UA from yesterday positive for UTI. Today's urine still pending. Will also run gonorrhea and chlamydia as patient did grow Gram-negative rods. Ceftriaxone has been initiated as well as the 30 cc/kilos bolus, plan at this time is hospital admission Time: 08:11 Medications Administered Generic Name Dose Route Start Last Admin Trade Name Freq PRN Reason Stop Dose Admin Sodium Chloride 1,769.01 mls @ 1,769.01 mls/hr 12/12/23 08:11 12/12/23 08:17 Ns 30 ml/kg infuse over 1 hr (1769.01 ml) 12/12/23 09:10 1,769.01 mls/hr IV Administration .Q1H STA Discontinued Medications Generic Name Dose Route Start Last Admin Trade Name Freq PRN Reason Stop Dose Admin Ceftriaxone Sodium 1 gm/ 50 mls @ 100 mls/hr 12/12/23 07:26 12/12/23 07:56 Sodium Chloride IV 12/12/23 07:55 100 mls/hr ONCE ONE Administration Medical Decision Making Medical Decision Making [facility] Narrative: 07 53 year old female presents w/ URI like sx called for + blood cultures reporting URI symptoms and some changes in urination Physical exam benign History and physical exam concerning for upper respiratory infection versus urinary tract infection. Unlikely pyelonephritis, PE, ACS, dissection, acute respiratory distress. I do not suspect pneumonia as patient has clear breath sounds. Plan labs, imaging, blood cultures, lactic acid and empiric antibiotic Differential Diagnosis Differential Diagnoses: The differential diagnosis associated with the presentation includes History and physical exam concerning for upper respiratory infection versus urinary tract infection. Unlikely pyelonephritis, PE, ACS, dissection, acute respiratory distress. I do not suspect pneumonia as patient has clear breath sounds. Admission/Observation Consideration of admission/observation: Escalation of care including admission/observation considered Lab Data [facility] Lab Attestation statement: I reviewed the patient's lab results. 12/12/23 07:29 12/12/23 07:29 Labs: Lab Results 12/12/23 Range/Units 07:29 WBC 11.6 H (4.8-10.8) X10*3/uL RBC 4.24 (4.20-5.50) X10*6/uL Hgb 11.7 L (12.0-16.0) g/dl Hct 34.1 L (37.0-47.0) % MCV 80.4 (80.0-98.0) fL MCH 27.6 (27.0-33.0) pg MCHC 34.3 (31.0-35.0) g/dl RDW 13.7 (11.0-16.0) % Plt Count 242 (160-400) X10*3/uL MPV 9.6 (9.4-12.3) fL Immature Gran % (Auto) 0.9 H (0.0-0.4) % Neut % (Auto) 91.3 H (45-73) % Lymph % (Auto) 4.7 L (20-40) % [place] % (Auto) 2.6 (2-11) % Eos % (Auto) 0.2 (0-4) % Baso % (Auto) 0.3 (0-2) % Lymph # (Auto) 0.5 L (1.2-4.9) X10*3/uL [place] # (Auto) 0.3 (0.1-1.2) X10*3/uL Eos # (Auto) 0.0 (0.0-0.4) X10*3/uL Baso # (Auto) 0.0 (0.0-0.2) X10*3/uL Abs Immat Gran (auto) 0.11 H (0.00-0.03) X10*3/uL Absolute Neuts (auto) 10.6 H (2.0-8.3) x10*3/uL Absolute Nucleated RBC 0.000 (0.0-0.012) X10*3/uL Nucleated RBC % (auto) 0.0 (0.0-0.2) /100WBC Smear Tech's Comments VERIFIED Sodium 135 (135-145) mmol/L Potassium 3.6 (3.3-5.1) mmol/L Chloride 102 (96-108) mmol/L Carbon Dioxide 25 (22-29) mmol/L Anion Gap 12 (12-20) BUN 10 (9-16) mg/dL Creatinine 0.83 (0.5-1.4) mg/dL Estim Creat Clear Calc 69.2 Estimated GFR > 60 Random Glucose 305 H (60-115) mg/dL Lactic Acid 1.1 (0.5-2.0) mmol/L Calcium 9.5 (8.4-10.2) mg/dL Magnesium 1.7 (1.6-2.6) mg/dL Total Bilirubin 0.8 (0.0-1.0) mg/dL AST 13 (5-31) U/L ALT 12 (0-31) U/L Alkaline Phosphatase 119 H (39-117) U/L Total Protein 7.3 (6.5-8.0) g/dL Albumin 3.3 L (3.5-5.0) g/dL Influenza Type A (PCR) NEGATIVE (Negative) Influenza Type B (PCR) NEGATIVE (Negative) RSV RNA Qual (PCR) NEGATIVE (Negative) SARS-CoV-2 RNA (RT-PCR) NEGATIVE (Negative) Independent Interpretation I performed an independent interpretation of an: Plain X-Ray Radiology Impression Discussion of test interpretation with radiology: I have reviewed the radiologist's reading. External Record Review External record reviewed: Office record, Outpatient record and Prior outpatient labs Prescription Management I considered prescription management with: Antibiotic Chronic Conditions Patient?s care impacted by: Other (Hx UTIS ) Critical Care Time Critical Care Time Critical Care Time: Yes Total Critical Care Time: 35 Attestation: I attest to this time spent taking care of the patient, obtaining history, physical, reviewing labs, imaging, speaking to my attending, specialist or hospitalist. Discharge Plan Discharge Clinical Impression: URI (upper respiratory infection), UTI (urinary tract infection), Gram-negative bacteremia Patient Disposition: Admitted As Inpatient Print Language: Frisian
[2023-12-12 07:40] LABS: Basophils Percent Auto 0.3 % (0-2); Eosinophils Percent Auto 0.2 % (0-4); Hematocrit 34.1 % (37.0-47.0); Hemoglobin 11.7 g/dl (12.0-16.0); Imm Gran Abs Auto 0.11 X10*3/uL (0.00-0.03); Imm Gran Pct Auto 0.9 % (0.0-0.4); Lymphocytes Absolute Auto 0.5 X10*3/uL (1.2-4.9); Lymphocytes Percent Auto 4.7 % (20-40); MANUAL DIFF FLAG SCAN; Mean Corpuscular HGB Conc 34.3 g/dl (31.0-35.0); Mean Corpuscular Hemoglobin 27.6 pg (27.0-33.0); Mean Corpuscular Volume 80.4 fL (80.0-98.0); Mean Platelet Volume 9.6 fL (9.4-12.3); Monocytes Absolute Auto 0.3 X10*3/uL (0.1-1.2); Monocytes Percent Auto 2.6 % (2-11); Neutrophils Absolute Auto 10.6 x10*3/uL (2.0-8.3); Neutrophils Percent Auto 91.3 % (45-73); Platelet Count 242 X10*3/uL (160-400); Red Blood Count 4.24 X10*6/uL (4.20-5.50); Red Cell Distribution Width 13.7 % (11.0-16.0); SCAN SMEAR FLAG 1; White Blood Count 11.6 X10*3/uL (4.8-10.8)
[2023-12-12 07:47] LABS: Lactic Acid 1.1 mmol/L (0.5-2.0)
[2023-12-12 07:52] LABS: Alanine Aminotransferase 12 U/L (0-31); Albumin Level 3.3 g/dL (3.5-5.0); Alkaline Phosphatase 119 U/L (39-117); Anion Gap 12 (12-20); Aspartate Amino Transferase 13 U/L (5-31); Bilirubin Total 0.8 mg/dL (0.0-1.0); Blood Urea Nitrogen 10 mg/dL (9-16); Calcium 9.5 mg/dL (8.4-10.2); Carbon Dioxide 25 mmol/L (22-29); Chloride 102 mmol/L (96-108); Creatinine Clr Calc Pharmacy 69.2; Estimated Glomerular Filt Rate > 60; Glucose Random 305 mg/dL (60-115); Magnesium 1.7 mg/dL (1.6-2.6); Potassium 3.6 mmol/L (3.3-5.1); Sodium 135 mmol/L (135-145); Total Protein 7.3 g/dL (6.5-8.0)
[2023-12-12] MEDS: cefTRIAXone sodium 1 GM in 0.9 % Sodium Chloride 50 ML IV ×3 (07:56→23:59)
[2023-12-12 08:04] LABS: SLIDE REVIEW VERIFIED
[2023-12-12] MEDS: 0.9 % Sodium Chloride 1,769.01 ML 1769.01 ML IV (08:17)
[2023-12-12 08:18] LABS: Influenza A PCR NEGATIVE (Negative); Influenza B PCR NEGATIVE (Negative); Resp Syncy Virus RNA Qual PCR NEGATIVE (Negative); SARS COV2 PCR INHOUSE NEGATIVE (Negative)
[2023-12-12] MEDS: Insulin Lispro 100 UNIT/ML 3 ML VIAL 8 UNIT SUBCUT (08:23)
[2023-12-12 09:01] LABS: Glucose, Whole Blood 268 mg/dL (60-115)
[2023-12-12 09:33] LABS: Glucose, Whole Blood 213 mg/dL (60-115)
--- NOTE | 2023-12-12 10:01 | PHA.MEDREC ---
Pharmacy Consult ? Medication Reconciliation Pharmacy has completed the medication reconciliation. [employer] services used. Patient able to name indications for medications. Also states she uses her Tresiba dependent on sugar level. 10 units for 100-180 and 14 units for sugar >180
[2023-12-12] MEDS: Loratadine 10 MG TABLET PO (10:04)
[2023-12-12] MEDS: guaiFENesin 200 MG/10 ML 10 ML LIQUID PO ×2 (10:04→15:06)
[2023-12-12 10:37] LABS: Appearance Urine Cloudy; Color Urine Yellow; Glucose Urine UA >=1000 mg/dL (Negative); Leukocyte Esterase Urine Moderate (2+) (Negative); Nitrite Urine Positive (Negative); Specific Gravity - Urine 1.025 (1.005-1.025); UMIC TRIGGER UACC YES; Urine Blood Large (3+) (Negative); Urine Ketones Trace mg/dL (Negative); Urine Protein 30 (1+) mg/dL (Neg-Trace)
[2023-12-12 10:41] LABS: Bacteria Urine Trace (None Seen); Hyaline Casts Urine 0-2 /LPF (0-2); RBC Urine >20 /HPF (0-2); Squamous Epithelial Cell Urine 0-2 /HPF (0-2); UACC Culture Trigger YES; WBC Urine >50 /HPF (0-5)
[2023-12-12] MEDS: Insulin Lispro 100 UNIT/ML 3 ML VIAL SUBCUT ×2 (10:58→17:44)
[2023-12-12 11:50] LABS: Glucose, Whole Blood 103 mg/dL (60-115)
[2023-12-12 12:06] LABS: CT PCR NOT DETECTED (Not Detect.); NG PCR NOT DETECTED (Not Detect.)
[2023-12-12] MEDS: Acetaminophen 325 MG TABLET 650 MG PO ×2 (13:16→20:24)
--- NOTE | 2023-12-12 13:24 | PC.NURSE ---
Pt moved to tele monitor room in ED, placed on monitor at this time, vitals obtained.
--- NOTE | 2023-12-12 13:43 | PC.NURSE ---
Pt a/ox4, lung sounds cta bilaterally, no increased WOB/SOB, s1 and s2 heard, pt tachy on monitor 100s-110s, abdomen soft, non-tender. Pt oral temp 102.0, medicated per MAR with 650mg Tylenol. Call hernandez within reach, all needs met at this time, pt aware of plan of care.
[2023-12-12 14:47] LABS: Glucose, Whole Blood 152 mg/dL (60-115)
--- NOTE | 2023-12-12 15:28 | MHC.EDTECH ---
at this time this tech answered this pt's call light and assisted her to the bathroom across the sotelo from room 2, pt had steady gate. pt returned top bed and placed back on traveling auditor and call light given for boubacar
[2023-12-12] MEDS: 0.9 % Sodium Chloride Flush 3 ML SYRINGE IVFLUSH (16:25)
[2023-12-12 16:28] LABS: Glucose, Whole Blood 300 mg/dL (60-115)
--- NOTE | 2023-12-12 17:09 | P.HPHOSP_ITS ---
History of Present Illness Date of Service: 12/12/23 Attending physician on admission: Catalino Gonzales Chief Complaint: uti vs bronchitis 53 y/o F history of UTIs reporting cough, fatigue, malaise, myalgias ongoing for 2-3 weeks which progressively getting worse the past 3-4 days, fever and chills but she noticed that this started after getting the pneumonia vaccine. yesterday was in Ed - the wait was very long so decided to go home. in addition also told mild changes in urination frequency, darkened color and smell. She reports associated nausea, without vomiting. Denies chest pain, shortness of breath, vomiting, abdominal pain or back pain, headache, vision changes, dizziness and weakness . labs imaging reviewed : wbc 11.6 bmp and lactic acid normal has gram neg bactermia repeat blood cultures sent cxr -negative renal us:Mild right-sided hydronephrosis/Complex cystic lesion left kidney in ed received iv antibiotics and requested admission for uti/bacteremia /bronchitis . Review of Systems 2 Review of Systems: As above. [facility] Medical History Migraines Diabetes Social History Alcohol intake: never Patient Tobacco Use Status: Never used Tobacco Advance Directives: No Advance Directives Information Provided: No Do you have a plan to hurt others: No Plan Nutrition Risks: No Nutritional Risk Patient : No Meds Allergies Allergy/AdvReac Type Severity Reaction Status Date / Time No Known Allergies Allergy Verified 12/12/23 06:51 Active Medications: Current Medications Acetaminophen (Acetaminophen 325 Mg Tablet) 650 mg PO Q6H PRN PRN Reason: Pain, Mild (Pain Scale 1-3), fever or headache Last Admin: 12/12/23 13:16 Dose: 650 mg Glucose (Glucose Gel 15 Gm Gel..Gram.) 15 gm PO Q15M PRN; Protocol PRN Reason: per Hypoglycemia Standing Ord. Guaifenesin (Guaifenesin 200 Mg/10 Ml 10 Ml Liquid) 10 ml PO Q4H [facility] Last Admin: 12/12/23 15:06 Dose: 10 ml Dextrose (D10) 250 mls @ 750 mls/hr IV Q15M PRN; Protocol PRN Reason: per Hypoglycemia Standing Ord. Ceftriaxone Sodium 1 gm/ (Sodium Chloride) 50 mls @ 100 mls/hr IV Q24H [facility] Last Infusion: 12/12/23 11:03 Dose: Infused Insulin Human Lispro (Insulin Lispro 100 Unit/Ml 3 Ml Vial) 0 unit SUBCUT QIDACHS [facility]; Protocol Last Admin: 12/12/23 10:58 Dose: 4 unit Loratadine (Loratadine 10 Mg Tablet) 10 mg PO DAILY [facility] Last Admin: 12/12/23 10:04 Dose: 10 mg Melatonin (Melatonin 3 Mg Tablet) 6 mg PO BEDTIME PRN PRN Reason: Insomnia Sodium Chloride (0.9 % Sodium Chloride Flush 3 Ml Syringe) 3 ml IVFLUSH QSHIFT [facility] Last Admin: 12/12/23 16:25 Dose: 3 ml Home Medications ?Medication ?Instructions ?Recorded ?Confirmed ?Last Taken ?Type atorvastatin 40 mg tablet 40 mg PO BEDTIME 12/12/23 12/12/23 12/10/23 History cholecalciferol (vitamin D3) 50 50 mcg PO DAILY 12/12/23 12/12/23 12/10/23 History mcg (2,000 unit) tablet docusate sodium 100 mg capsule 100 mg PO BID PRN Constipation 12/12/23 12/12/23 12/10/23 History insulin degludec 200 unit/mL (3 See Protocol subcut DAILY 12/12/23 12/12/23 12/10/23 History mL) subcutaneous pen (Tresiba FlexTouch U-200 insulin) lisinopril 5 mg tablet 5 mg PO DAILY 12/12/23 12/12/23 12/10/23 History topiramate 25 mg tablet 25 mg PO BEDTIME 12/12/23 12/12/23 12/10/23 History Physical Exam 2 Vital Signs and Narrative: Vital Signs: Last Vital Signs Temp 98.9 F 12/12/23 16:15 Pulse 87 12/12/23 16:15 Resp 17 12/12/23 16:15 BP 99/63 12/12/23 16:15 Pulse Ox 98 12/12/23 16:15 O2 Del Method Room Air 12/12/23 16:15 BMI result Body Mass Index 22.3 Appearance: Alert.? Oriented X3.? cvs: rrr, [id number] res: airentry fair , has few rhonchii scattered abd: no rebound or guarding ,nt, bs present. ext pulses present , no cyanosis neuro: axo3 , nonfocal. Results Labs 12/12/23 07:29 12/12/23 07:29 Labs: Laboratory Results - last 24 hr 12/12/23 12/12/23 12/12/23 07:29 08:58 09:29 MCV 80.4 MCH 27.6 MCHC 34.3 RDW 13.7 Plt Count 242 MPV 9.6 Immature Gran % (Auto) 0.9 H Neut % (Auto) 91.3 H Lymph % (Auto) 4.7 L [place] % (Auto) 2.6 Eos % (Auto) 0.2 Baso % (Auto) 0.3 Lymph # (Auto) 0.5 L [place] # (Auto) 0.3 Eos # (Auto) 0.0 Baso # (Auto) 0.0 Abs Immat Gran (auto) 0.11 H Absolute Neuts (auto) 10.6 H Absolute Nucleated RBC 0.000 Nucleated RBC % (auto) 0.0 Smear Tech's Comments VERIFIED Anion Gap 12 Estim Creat Clear Calc 69.2 Estimated GFR > 60 POC Glucose 268 H 213 H Random Glucose 305 H Lactic Acid 1.1 Calcium 9.5 Magnesium 1.7 Total Bilirubin 0.8 AST 13 ALT 12 Alkaline Phosphatase 119 H Total Protein 7.3 Albumin 3.3 L Urine Color Urine Appearance Urine pH Ur Specific [place] Urine Protein Urine Glucose (UA) Urine Ketones Urine Blood Urine Nitrite Ur Leukocyte Esterase Urine RBC Urine WBC Ur Squamous Epith Cells Urine Bacteria Hyaline Casts Chlam trachomat DNA PCR Influenza Type A (PCR) NEGATIVE Influenza Type B (PCR) NEGATIVE N.gonorrhoeae DNA (PCR) RSV RNA Qual (PCR) NEGATIVE SARS-CoV-2 RNA (RT-PCR) NEGATIVE 12/12/23 12/12/23 12/12/23 10:29 11:45 14:42 MCV MCH MCHC RDW Plt Count MPV Immature Gran % (Auto) Neut % (Auto) Lymph % (Auto) [place] % (Auto) Eos % (Auto) Baso % (Auto) Lymph # (Auto) [place] # (Auto) Eos # (Auto) Baso # (Auto) Abs Immat Gran (auto) Absolute Neuts (auto) Absolute Nucleated RBC Nucleated RBC % (auto) Smear Tech's Comments Anion Gap Estim Creat Clear Calc Estimated GFR POC Glucose 103 152 H Random Glucose Lactic Acid Calcium Magnesium Total Bilirubin AST ALT Alkaline Phosphatase Total Protein Albumin Urine Color Yellow Urine Appearance Cloudy Urine pH 7.0 Ur Specific [place] 1.025 Urine Protein 30 (1+) H Urine Glucose (UA) >=1000 H Urine Ketones Trace Urine Blood Large (3+) H Urine Nitrite Positive H Ur Leukocyte Esterase Moderate (2+) H Urine RBC >20 H Urine WBC >50 H Ur Squamous Epith Cells 0-2 Urine Bacteria Trace Hyaline Casts 0-2 Chlam trachomat DNA PCR NOT DETECTED Influenza Type A (PCR) Influenza Type B (PCR) N.gonorrhoeae DNA (PCR) NOT DETECTED RSV RNA Qual (PCR) SARS-CoV-2 RNA (RT-PCR) 12/12/23 16:19 MCV MCH MCHC RDW Plt Count MPV Immature Gran % (Auto) Neut % (Auto) Lymph % (Auto) [place] % (Auto) Eos % (Auto) Baso % (Auto) Lymph # (Auto) [place] # (Auto) Eos # (Auto) Baso # (Auto) Abs Immat Gran (auto) Absolute Neuts (auto) Absolute Nucleated RBC Nucleated RBC % (auto) Smear Tech's Comments Anion Gap Estim Creat Clear Calc Estimated GFR POC Glucose 300 H Random Glucose Lactic Acid Calcium Magnesium Total Bilirubin AST ALT Alkaline Phosphatase Total Protein Albumin Urine Color Urine Appearance Urine pH Ur Specific [place] Urine Protein Urine Glucose (UA) Urine Ketones Urine Blood Urine Nitrite Ur Leukocyte Esterase Urine RBC Urine WBC Ur Squamous Epith Cells Urine Bacteria Hyaline Casts Chlam trachomat DNA PCR Influenza Type A (PCR) Influenza Type B (PCR) N.gonorrhoeae DNA (PCR) RSV RNA Qual (PCR) SARS-CoV-2 RNA (RT-PCR) Imaging Radiologist's Impressions: Impressions Renal Ultrasound 12/12/23 10:01 IMPRESSION: 1. Mild right-sided hydronephrosis. Further evaluation with CT abdomen/pelvis could be obtained as clinically warranted if there are concerns for obstructive uropathy. 2. Bilateral renal calculi. 3. Complex cystic lesion in the lower pole of the left kidney with suggestion of an internal solid nodule; recommend further characterization with renal MRI with and without IV contrast. The report will be called to the ordering clinician by a [facility] Physician Strap Setter. Electronically signed by: Flor Hernandez MD 12/12/2023 11:55 AM EDT RP Assessment and Plan (1) Gram-negative bacteremia: Status: Acute (2) UTI (urinary tract infection): Qualifiers: Urinary tract infection type: site unspecified Hematuria presence: with hematuria Qualified Code(s): N39.0 - Urinary tract infection, site not specified; R31.9 - Hematuria, unspecified Status: Acute Plan 53-year-old female with bacteremia, UTI, bronchitis Sepsis secondary to bacteremia/UTI, bronchitis Her blood culture from yesterday shows Gram-negative rob has tachycardia,fever Renal ultrasound shows hydronephrosis, renal cyst complex Repeat blood culture Started on IV antibiotics. Urology evaluation htn: continue home meds dm with hyperglycemia fs with coverage and lantus hlp: on atorvastatin dvt prophylax: s/c lovenox. Patient will benefit from 2 midnight stay considering ongoing Gram-negative bacteremia,, sepsis, UTI: Need IV antibiotics and urology input. Above management discussed with the patient detail length she understand and agreement with the above plan, time spent 70 minute, patient full code. Quality Stroke Does the patient have a stroke diagnosis?: No VTE Prior VTE?: No VTE Risk Level:: Medical - moderate - high VTE Device Contraindication: N/A - Device Ordered VTE Drug Contraindication: Patient Refused
--- NOTE | 2023-12-12 19:08 | PC.NURSE ---
received report from Theodora WEIR, assume care of pt at this time
[2023-12-12 21:24] LABS: Glucose, Whole Blood 188 mg/dL (60-115)
[2023-12-13] VITALS (29 sets, daily range): BP systolic 70–154; BP diastolic 44–87; PULSE 71–134; RESP 18–23; TEMP 36.4–41.2; O2SAT 92–99
[2023-12-13] MEDS: Insulin Lispro 100 UNIT/ML 3 ML VIAL SUBCUT ×4 (00:12→21:59)
[2023-12-13] MEDS: 0.9 % Sodium Chloride Flush 3 ML SYRINGE IVFLUSH ×2 (00:27→08:18)
[2023-12-13] MEDS: Acetaminophen 1,000 MG/100 ML PIGGYBACK 400 MG IV ×2 (01:31→15:15)
[2023-12-13] MEDS: Lactated Ringers 1,000 ML 999 ML IV (02:15)
[2023-12-13 02:24] LABS: Lactic Acid 1.1 mmol/L (0.5-2.0)
[2023-12-13] MEDS: Albumin Human 25 % 100 ML 133.33 ML IV ×2 (04:44→05:35)
[2023-12-13] MEDS: guaiFENesin 200 MG/10 ML 10 ML LIQUID PO ×6 (05:33→21:59)
--- NOTE | 2023-12-13 05:52 | PM.EVENT ---
Event Note Date of Service: 12/13/23 Event Note: Patient noted to be hypotensive with blood pressure in the 70s. Severe sepsis due to Gram-negative bacteremia. Ordered 30 cc/kilos fluid bolus. Patient received half of the fluid bolus and blood pressure improved to the 80s. Lactic acid normal. Patient asymptomatic and denies dizziness or lightheadedness. Continue to monitor blood pressure after complete crystalloid resuscitation. Also ordered albumin. Low threshold to transfer to ICU for pressor needs. Will sign out to daytime. Time Spent With Patient Time: Total time managing care of this patient today ____ minutes.
[2023-12-13 06:50] LABS: Hemoglobin 8.6 g/dl (12.0-16.0); Mean Corpuscular HGB Conc 33.1 g/dl (31.0-35.0); Mean Corpuscular Hemoglobin 27.1 pg (27.0-33.0); Mean Platelet Volume 10.3 fL (9.4-12.3); Red Blood Count 3.17 X10*6/uL (4.20-5.50); Red Cell Distribution Width 13.9 % (11.0-16.0); White Blood Count 8.8 X10*3/uL (4.8-10.8)
[2023-12-13 07:01] LABS: Platelet Count 154 X10*3/uL (160-400)
[2023-12-13 07:17] LABS: Anion Gap 14 (12-20); Blood Urea Nitrogen 8 mg/dL (9-16); Calcium 8.6 mg/dL (8.4-10.2); Carbon Dioxide 18 mmol/L (22-29); Chloride 108 mmol/L (96-108); Creatinine Clr Calc Pharmacy 83.2; Estimated Glomerular Filt Rate > 60; Glucose Random 196 mg/dL (60-115); Potassium 3.1 mmol/L (3.3-5.1); Sodium 137 mmol/L (135-145)
[2023-12-13 07:42] LABS: Glucose, Whole Blood 173 mg/dL (60-115)
[2023-12-13 07:55] LABS: Iron 9 mcg/dL (30-160); Percent Iron Saturation 8 % (15-50); Total Iron Binding Capacity 115 mcg/dL (228-428); Unsaturated Iron Binding 106 ug/dL
[2023-12-13 08:01] LABS: Ferritin 296 ng/mL (10-250)
--- NOTE | 2023-12-13 08:07 | PC.NURSE ---
Patient admitted from the ED and arrived on the unit around 2100. Patient is AAOX4 with fever 101.0 around 2123. Nfyo=791.6 around 2347. Tylenol iv 1000 mg given. Fever will improve to 98.6. Patient become hypotensive around 2347. BP was 94/54, 79/46 at 0141, P=106. Patient received 1l LR with no result. Around 0400 BP was 75/52. Dr Barakat was made aware. More fluids were ordered as well as albumin given with the assistance of Natalee, the night DIGITAL DESIGN ENGINEER. Hand off to day shift RN.
[2023-12-13] MEDS: medroxyPROGESTERone Acetate 5 MG TABLET 10 MG PO (08:16)
[2023-12-13] MEDS: Cholecalciferol (Vitamin D3) 25 MCG TABLET 50 MCG PO (08:16)
[2023-12-13] MEDS: Acetaminophen 325 MG TABLET 650 MG PO ×2 (08:16→14:15)
[2023-12-13] MEDS: Loratadine 10 MG TABLET PO (08:16)
[2023-12-13] MEDS: Insulin Glargine,Hum.rec.anlog 100 UNIT/ML 10 ML VIAL 10 UNIT SUBCUT (08:17)
[2023-12-13] MEDS: Pantoprazole Sodium 40 MG/10 ML VIAL IVPUSH ×2 (08:18→18:17)
[2023-12-13] MEDS: Piperacillin Sodium/Tazobactam 3.375 GM in 0.9 % Sodium Chloride 50 ML IV ×3 (08:18→20:12)
--- NOTE | 2023-12-13 09:42 | MHC.CM.PN ---
Pt. 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 HCP completed and added to chart, naming her , Kali Yun. PCP confirmed: Elizabeth Saavedra. to transport home [place], DCP: home, self care.
[2023-12-13 10:49] LABS: Hematocrit 25.1 % (37.0-47.0); Hemoglobin 8.7 g/dl (12.0-16.0)
[2023-12-13 11:36] LABS: Glucose, Whole Blood 257 mg/dL (60-115)
[2023-12-13 11:36] LABS: Folate 9.8 ng/mL (> or = 4.0); Vitamin B12 439 pg/mL (200-900)
[2023-12-13] MEDS: 0.9 % Sodium Chloride 1,000 ML 100 ML IVCONT ×2 (12:29→22:03)
[2023-12-13 15:53] LABS: Glucose, Whole Blood 185 mg/dL (60-115)
--- NOTE | 2023-12-13 16:43 | PM.UROCN ---
History of Present Illness Consult details Consult date: 12/13/23 Narrative: cc: right hydronephrosis and pyelonephritis 53-year-old female Admission after 2-3 weeks of ongoing fatigue, malaise and myalgias Fevers and chills Change in urinary frequency Uncontrolled diabetes WBC elevated Urine positive Imaging - Renal US - Mild hydronephrosis. Multiple renal calculi largest measuring 0.4 cm in the interpolar kidney. Multiple simple appearing cysts largest measuring 1.4 cm in the lateral interpolar kidney. Scattered punctate hyperechoic foci that could represent a combination of calculi and vascular calcifications Given finding of hydronephrosis and slow improvement recommend cystoscopy, right retrograde, stent placement Review of Systems Constitutional: Constitutional: Reports as per HPI and Reports no additional constitutional complaints Cardiovascular: Cardiovascular: Reports as per HPI and Reports no additional cardiovascular complaints Respiratory: Respiratory: Reports as per HPI and Reports no additional respiratory complaints Gastrointestinal: Gastrointestinal: Reports as per HPI and Reports no additional gastrointestinal complaints Genitourinary: Genitourinary: Reports as per HPI Musculoskeletal: Musculoskeletal: Reports no additional musculoskeletal complaints and Reports as per HPI Neurologic: Reports system reviewed and no additional complaints, except as documented and Reports as per HPI [facility] Past Medical History Medical History Migraines Diabetes Social History Social History Household Members: Spouse Housing: Apartment Do you presently have visiting nurse or other home services: No Alcohol intake: never Patient Tobacco Use Status: Current everyday Tobacco user Tobacco use type: Cigarette Cigarettes Per Day: 2 e-Cigarette/Vaping Use: Never Used Second Hand Smoke Exposure: Yes service: No Meds Allergies Allergy/AdvReac Type Severity Reaction Status Date / Time No Known Allergies Allergy Verified 12/12/23 06:51 Active Medications: Current Medications Acetaminophen (Acetaminophen 325 Mg Tablet) 650 mg PO Q6H PRN PRN Reason: Pain, Mild (Pain Scale 1-3), fever or headache Last Admin: 12/13/23 14:15 Dose: 650 mg Atorvastatin Calcium (Atorvastatin Calcium 40 Mg Tablet) 40 mg PO BEDTIME [facility] Last Admin: 12/13/23 00:00 Dose: 40 mg Docusate Sodium (Docusate Sodium 100 Mg Capsule) 100 mg PO BID PRN PRN Reason: Constipation Glucose (Glucose Gel 15 Gm Gel..Gram.) 15 gm PO Q15M PRN; Protocol PRN Reason: per Hypoglycemia Standing Ord. Guaifenesin (Guaifenesin 200 Mg/10 Ml 10 Ml Liquid) 10 ml PO Q4H [facility] Last Admin: 12/13/23 14:16 Dose: 10 ml Dextrose (D10) 250 mls @ 750 mls/hr IV Q15M PRN; Protocol PRN Reason: per Hypoglycemia Standing Ord. Piperacillin Sod/Tazobactam (Sod 3.375 gm/ Sodium Chloride) 50 mls @ 100 mls/hr IV Q6H [facility] Last Infusion: 12/13/23 15:09 Dose: Infused Sodium Chloride (Ns) 1,000 mls @ 100 mls/hr IVCONT .Q10H [facility] Last Admin: 12/13/23 12:29 Dose: 100 mls/hr Insulin Glargine (Insulin Glargine,Hum.Rec.Anlog 100 Unit/Ml 10 Ml Vial) 10 unit SUBCUT DAILY [facility] Last Admin: 12/13/23 08:17 Dose: 10 unit Insulin Human Lispro (Insulin Lispro 100 Unit/Ml 3 Ml Vial) 0 unit SUBCUT QIDACHS [facility]; Protocol Last Admin: 12/13/23 12:29 Dose: 6 unit Loratadine (Loratadine 10 Mg Tablet) 10 mg PO DAILY [facility] Last Admin: 12/13/23 08:16 Dose: 10 mg Medroxyprogesterone Acetate (Medroxyprogesterone Acetate 5 Mg Tablet) 10 mg PO DAILY [facility] Last Admin: 12/13/23 08:16 Dose: 10 mg Melatonin (Melatonin 3 Mg Tablet) 6 mg PO BEDTIME PRN PRN Reason: Insomnia Pantoprazole Sodium (Pantoprazole Sodium 40 Mg/10 Ml Vial) 40 mg IVPUSH BID@0630,1630 [facility] Last Admin: 12/13/23 08:18 Dose: 40 mg Sodium Chloride (0.9 % Sodium Chloride Flush 3 Ml Syringe) 3 ml IVFLUSH QSHIFT [facility] Last Admin: 12/13/23 15:50 Dose: Not Given Topiramate (Topiramate 25 Mg Tablet) 25 mg PO BEDTIME [facility] Last Admin: 12/13/23 00:00 Dose: 25 mg Vitamin D (Cholecalciferol (Vitamin D3) 25 Mcg Tablet) 50 mcg PO DAILY [facility] Last Admin: 12/13/23 08:16 Dose: 50 mcg Home Medications ?Medication ?Instructions ?Recorded ?Confirmed ?Last Taken ?Type atorvastatin 40 mg tablet 40 mg PO BEDTIME 12/12/23 12/12/23 12/10/23 History cholecalciferol (vitamin D3) 50 50 mcg PO DAILY 12/12/23 12/12/23 12/10/23 History mcg (2,000 unit) tablet docusate sodium 100 mg capsule 100 mg PO BID PRN Constipation 12/12/23 12/12/23 12/10/23 History insulin degludec 200 unit/mL (3 See Protocol subcut DAILY 12/12/23 12/12/23 12/10/23 History mL) subcutaneous pen (Tresiba FlexTouch U-200 insulin) lisinopril 5 mg tablet 5 mg PO DAILY 12/12/23 12/12/23 12/10/23 History topiramate 25 mg tablet 25 mg PO BEDTIME 12/12/23 12/12/23 12/10/23 History Physical Exam Vital Signs: Vital Signs: Last Vital Signs Temp 101.5 F H 12/13/23 16:00 Pulse 118 H 12/13/23 15:59 Resp 18 12/13/23 15:59 BP 109/58 L 12/13/23 15:59 Pulse Ox 92 12/13/23 15:59 O2 Del Method Room Air 12/13/23 14:39 O2 Flow Rate 3 12/13/23 15:59 BMI result Body Mass Index 22.3 Const: General: cooperative, healthy appearing, comfortable and no acute distress Orientation/consciousness: patient oriented x3 HEENT: Face and sinus: Yes normal facial exam Mouth: moist mucous membranes Neck: Neck: Yes normal visual inspection, Yes full ROM and Yes trachea midline Chest: Chest palpation & inspection: normal inspection of the chest Resp: Effort & Inspection: normal respiratory effort, able to speak in complete sentences and no respiratory distress GI: Inspection: Yes normal to inspection Back/Spine/Pelvis: Cervical Spine: normal cervical lordosis Thoracic/Lumbar Spine: thoracic and lumbar spine normal to inspection Skin: General skin exam: no rashes or lesions noted Neuro: General: patient oriented x3, tone normal and moves all extremities Extrem: General: Yes normal to inspection and Yes capillary refill normal Results Labs 12/13/23 10:27 12/13/23 06:20 Labs: Abnormal lab results 12/12/23 12/13/23 12/13/23 Range/Units 21:19 05:59 06:20 RBC 3.17 L D (4.20-5.50) X10*6/uL Hgb 8.6 L D (12.0-16.0) g/dl Hct 26.0 L D (37.0-47.0) % Plt Count 154 L D (160-400) X10*3/uL Potassium 3.1 L (3.3-5.1) mmol/L Carbon Dioxide 18 L (22-29) mmol/L BUN 8 L (9-16) mg/dL POC Glucose 188 H (60-115) mg/dL Random Glucose 196 H (60-115) mg/dL Iron 9 L (30-160) mcg/dL TIBC 115 L (228-428) mcg/dL % Saturation 8 L (15-50) % Ferritin 296 H (10-250) ng/mL 12/13/23 12/13/23 12/13/23 Range/Units 07:20 10:27 11:22 RBC (4.20-5.50) X10*6/uL Hgb 8.7 L (12.0-16.0) g/dl Hct 25.1 L (37.0-47.0) % Plt Count (160-400) X10*3/uL Potassium (3.3-5.1) mmol/L Carbon Dioxide (22-29) mmol/L BUN (9-16) mg/dL POC Glucose 173 H 257 H (60-115) mg/dL Random Glucose (60-115) mg/dL Iron (30-160) mcg/dL TIBC (228-428) mcg/dL % Saturation (15-50) % Ferritin (10-250) ng/mL 12/13/23 Range/Units 15:43 RBC (4.20-5.50) X10*6/uL Hgb (12.0-16.0) g/dl Hct (37.0-47.0) % Plt Count (160-400) X10*3/uL Potassium (3.3-5.1) mmol/L Carbon Dioxide (22-29) mmol/L BUN (9-16) mg/dL POC Glucose 185 H (60-115) mg/dL Random Glucose (60-115) mg/dL Iron (30-160) mcg/dL TIBC (228-428) mcg/dL % Saturation (15-50) % Ferritin (10-250) ng/mL Short CBC 12/13/23 12/13/23 Range/Units 05:59 10:27 WBC 8.8 (4.8-10.8) X10*3/uL Hgb 8.6 L D 8.7 L (12.0-16.0) g/dl Hct 26.0 L D 25.1 L (37.0-47.0) % Plt Count 154 L D (160-400) X10*3/uL BMP 12/13/23 06:20 Sodium 137 Potassium 3.1 L Chloride 108 Carbon Dioxide 18 L BUN 8 L Creatinine 0.69 Calcium 8.6 D Urine 12/12/23 Range/Units 10:29 Urine Color Yellow Urine Appearance Cloudy Urine pH 7.0 (5.0-9.0) Ur Specific Elizabeth 1.025 (1.005-1.025) Urine Protein 30 (1+) H (Neg-Trace) mg/dL Urine Glucose (UA) >=1000 H (Negative) mg/dL All other labs normal. Assessment and Plan (1) Gram-negative bacteremia: Status: Acute (2) Hydronephrosis, right: Status: Acute Plan Risks, benefits and alternatives to therapy were discussed. These include but are not limited to infection, bleeding, damage to local organs and tissues, need for further interventions. Anesthetic risks regarding cardiac arrhythmia, blood clots, and potential mortality were discussed. The patient understands the typical recovery time and the outpatient nature of the procedure. After consideration of these risks the patient gives full informed consent and they wish to move ahead with the procedure. Cystoscopy, right retrograde, right stent placement Procedures Date of Service Date of Service: 12/13/23
--- NOTE | 2023-12-13 17:41 | HO.PM.IMPN ---
Subjective Subjective Date of Service: 12/13/23 Interval History: severe sepsis Review of Systems denies abdominal pain has fever, tachycardia no sob dry cough Physical Exam Vital Signs: Vital Signs: Last Vital Signs Temp 101.5 F H 12/13/23 16:00 Pulse 118 H 12/13/23 15:59 Resp 18 12/13/23 15:59 BP 109/58 L 12/13/23 15:59 Pulse Ox 92 12/13/23 15:59 O2 Del Method Room Air 12/13/23 14:39 O2 Flow Rate 3 12/13/23 15:59 BMI result Body Mass Index 22.3 Appearance: Alert.? Oriented X3.?feels weak cvs: rrr, [id number]. res: clear to auscultation ,no rhonchii or wheezing abd: no rebound or guarding ,nt, bs present. ext pulses present , no cyanosis . neuro: axo3 , nonfocal. Objective Data Active Medications Acetaminophen (Acetaminophen 325 Mg Tablet) 650 mg PO Q6H PRN PRN Reason: Pain, Mild (Pain Scale 1-3), fever or headache Last Admin: 12/13/23 14:15 Dose: 650 mg Documented By: CALE Atorvastatin Calcium (Atorvastatin Calcium 40 Mg Tablet) 40 mg PO BEDTIME [facility] Last Admin: 12/13/23 00:00 Dose: 40 mg Documented By: DAXA Docusate Sodium (Docusate Sodium 100 Mg Capsule) 100 mg PO BID PRN PRN Reason: Constipation Glucose (Glucose Gel 15 Gm Gel..Gram.) 15 gm PO Q15M PRN; Protocol PRN Reason: per Hypoglycemia Standing Ord. Guaifenesin (Guaifenesin 200 Mg/10 Ml 10 Ml Liquid) 10 ml PO Q4H [facility] Last Admin: 12/13/23 14:16 Dose: 10 ml Documented By: CALE Dextrose (D10) 250 mls @ 750 mls/hr IV Q15M PRN; Protocol PRN Reason: per Hypoglycemia Standing Ord. Piperacillin Sod/Tazobactam (Sod 3.375 gm/ Sodium Chloride) 50 mls @ 100 mls/hr IV Q6H [facility] Last Infusion: 12/13/23 15:09 Dose: Infused Documented By: CALE Sodium Chloride (Ns) 1,000 mls @ 100 mls/hr IVCONT .Q10H [facility] Last Admin: 12/13/23 12:29 Dose: 100 mls/hr Documented By: CLAE Levofloxacin (Levaquin) 500 mg in 100 mls @ 100 mls/hr IV PREOP ONE Stop: 12/13/23 17:47 Insulin Glargine (Insulin Glargine,Hum.Rec.Anlog 100 Unit/Ml 10 Ml Vial) 10 unit SUBCUT DAILY [facility] Last Admin: 12/13/23 08:17 Dose: 10 unit Documented By: JIMBO Insulin Human Lispro (Insulin Lispro 100 Unit/Ml 3 Ml Vial) 0 unit SUBCUT QIDACHS [facility]; Protocol Last Admin: 12/13/23 12:29 Dose: 6 unit Documented By: CLAE Loratadine (Loratadine 10 Mg Tablet) 10 mg PO DAILY [facility] Last Admin: 12/13/23 08:16 Dose: 10 mg Documented By: JIMBO Medroxyprogesterone Acetate (Medroxyprogesterone Acetate 5 Mg Tablet) 10 mg PO DAILY [facility] Last Admin: 12/13/23 08:16 Dose: 10 mg Documented By: JIMBO Melatonin (Melatonin 3 Mg Tablet) 6 mg PO BEDTIME PRN PRN Reason: Insomnia Pantoprazole Sodium (Pantoprazole Sodium 40 Mg/10 Ml Vial) 40 mg IVPUSH BID@0630,1630 [facility] Last Admin: 12/13/23 08:18 Dose: 40 mg Documented By: JIMBO Sodium Chloride (0.9 % Sodium Chloride Flush 3 Ml Syringe) 3 ml IVFLUSH QSHIFT [facility] Last Admin: 12/13/23 15:50 Dose: Not Given Documented By: CALE Non-Admin Reason: IV Running Topiramate (Topiramate 25 Mg Tablet) 25 mg PO BEDTIME [facility] Last Admin: 12/13/23 00:00 Dose: 25 mg Documented By: DAXA Vitamin D (Cholecalciferol (Vitamin D3) 25 Mcg Tablet) 50 mcg PO DAILY [facility] Last Admin: 12/13/23 08:16 Dose: 50 mcg Documented By: JIMBO Labs 12/13/23 10:27 12/13/23 06:20 Labs: Laboratory Results - last 24 hr 12/12/23 12/13/23 12/13/23 21:19 02:07 05:59 MCV 82.0 MCH 27.1 MCHC 33.1 RDW 13.9 Plt Count 154 L D MPV 10.3 Absolute Nucleated RBC 0.000 Nucleated RBC % (auto) 0.0 Anion Gap Estim Creat Clear Calc Estimated GFR POC Glucose 188 H Random Glucose Lactic Acid 1.1 Calcium Iron TIBC % Saturation Unsat Iron Binding Ferritin Vitamin B12 Folate Blood Type Antibody Screen 12/13/23 12/13/23 12/13/23 06:20 07:20 10:27 MCV MCH MCHC RDW Plt Count MPV Absolute Nucleated RBC Nucleated RBC % (auto) Anion Gap 14 Estim Creat Clear Calc 83.2 Estimated GFR > 60 POC Glucose 173 H Random Glucose 196 H Lactic Acid Calcium 8.6 D Iron 9 L TIBC 115 L % Saturation 8 L Unsat Iron Binding 106 Ferritin 296 H Vitamin B12 439 Folate 9.8 Blood Type O Positive Antibody Screen NEGATIVE 12/13/23 12/13/23 11:22 15:43 MCV MCH MCHC RDW Plt Count MPV Absolute Nucleated RBC Nucleated RBC % (auto) Anion Gap Estim Creat Clear Calc Estimated GFR POC Glucose 257 H 185 H Random Glucose Lactic Acid Calcium Iron TIBC % Saturation Unsat Iron Binding Ferritin Vitamin B12 Folate Blood Type Antibody Screen Microbiology Microbiology Results: Microbiology 12/12/23 07:35 Blood Culture - Preliminary Blood - Venous Gram negative rob 12/12/23 07:29 Blood Culture - Preliminary Blood - Venous Gram negative rob Assessment and Plan (1) Hydronephrosis, right: Status: Acute (2) Gram-negative bacteremia: Status: Acute (3) UTI (urinary tract infection): Status: Acute Assessment and Plan: 53-year-old female with bacteremia, UTI, bronchitis severe Sepsis secondary to bacteremia/UTI, bronchitis ( since last night)-had hypotensive Her blood culture from yesterday shows Gram-negative rob has tachycardia,fever persistent lactic acid normal received 30cc bolus-hypotension resolved. Renal ultrasound shows hydronephrosis, renal cyst complex added ct abd Repeat blood culture Started on IV antibiotics chnaged to zosyn,ivf ,tylenol for fevers . Urology evaluation-npo now for possible stent anemia/thrombocytopenia: Patient denies any gross bleeding, will monitor H&H, ppi, anemia workup including occult blood. Anemia/thrombocytopenia might be related to sepsis. Finger htn: hold home meds dm with hyperglycemia fs with coverage and lantus hlp: on atorvastatin dvt prophylax: dc lovenox due to anemia ongoning need considering ongoing Gram-negative bacteremia,, sepsis, UTI: Need IV antibiotics and urology input , also d/w Icu recomended -continue antibiotics ,fluids ,cooling blanket , if further decompensation ,will each out again to icu. Quality Stroke Does the patient have a stroke diagnosis?: No VTE Prior VTE?: No VTE Risk Level:: Medical - moderate - high VTE Device Contraindication: N/A - Device Ordered VTE Drug Contraindication: Patient Refused
--- NOTE | 2023-12-13 19:20 | HO.ANESPROP2 ---
HPI - Anesthesia Eval Consult details Narrative: Right ureter stone PMFSH Active Problems Active Problems: All Active Problems Hydronephrosis, right (Acute) Gram-negative bacteremia (Acute) UTI (urinary tract infection) (Acute) URI (upper respiratory infection) (Acute) Epigastric pain (Acute) Past Medical History Medical History (Updated 12/13/23 @ 19:22 by Duglas Eldridge MD) Hypercholesteremia Migraines Diabetes Family History Family history of problems with anesthesia: No Surgical History History of Problems with Anesthesia: No Social History Social History Household Members: Spouse Housing: Apartment Do you presently have visiting nurse or other home services: No Alcohol intake: never Patient Tobacco Use Status: Current everyday Tobacco user Tobacco use type: Cigarette Cigarettes Per Day: 2 e-Cigarette/Vaping Use: Never Used Second Hand Smoke Exposure: Yes service: No Meds Allergies Allergy/AdvReac Type Severity Reaction Status Date / Time No Known Allergies Allergy Verified 12/12/23 06:51 Active Medications: Current Medications Acetaminophen (Acetaminophen 325 Mg Tablet) 650 mg PO Q6H PRN PRN Reason: Pain, Mild (Pain Scale 1-3), fever or headache Last Admin: 12/13/23 14:15 Dose: 650 mg Atorvastatin Calcium (Atorvastatin Calcium 40 Mg Tablet) 40 mg PO BEDTIME ARLENE Last Admin: 12/13/23 00:00 Dose: 40 mg Docusate Sodium (Docusate Sodium 100 Mg Capsule) 100 mg PO BID PRN PRN Reason: Constipation Glucose (Glucose Gel 15 Gm Gel..Gram.) 15 gm PO Q15M PRN; Protocol PRN Reason: per Hypoglycemia Standing Ord. Guaifenesin (Guaifenesin 200 Mg/10 Ml 10 Ml Liquid) 10 ml PO Q4H ARLENE Last Admin: 12/13/23 18:17 Dose: 10 ml Dextrose (D10) 250 mls @ 750 mls/hr IV Q15M PRN; Protocol PRN Reason: per Hypoglycemia Standing Ord. Piperacillin Sod/Tazobactam (Sod 3.375 gm/ Sodium Chloride) 50 mls @ 100 mls/hr IV Q6H ARLENE Last Infusion: 12/13/23 15:09 Dose: Infused Sodium Chloride (Ns) 1,000 mls @ 100 mls/hr IVCONT .Q10H ARLENE Last Admin: 12/13/23 12:29 Dose: 100 mls/hr Insulin Glargine (Insulin Glargine,Hum.Rec.Anlog 100 Unit/Ml 10 Ml Vial) 10 unit SUBCUT DAILY [facility] Last Admin: 12/13/23 08:17 Dose: 10 unit Insulin Human Lispro (Insulin Lispro 100 Unit/Ml 3 Ml Vial) 0 unit SUBCUT QIDACHS [facility]; Protocol Last Admin: 12/13/23 17:50 Dose: Not Given Loratadine (Loratadine 10 Mg Tablet) 10 mg PO DAILY [facility] Last Admin: 12/13/23 08:16 Dose: 10 mg Medroxyprogesterone Acetate (Medroxyprogesterone Acetate 5 Mg Tablet) 10 mg PO DAILY [facility] Last Admin: 12/13/23 08:16 Dose: 10 mg Melatonin (Melatonin 3 Mg Tablet) 6 mg PO BEDTIME PRN PRN Reason: Insomnia Pantoprazole Sodium (Pantoprazole Sodium 40 Mg/10 Ml Vial) 40 mg IVPUSH BID@0630,1630 [facility] Last Admin: 12/13/23 18:17 Dose: 40 mg Sodium Chloride (0.9 % Sodium Chloride Flush 3 Ml Syringe) 3 ml IVFLUSH QSHIFT [facility] Last Admin: 12/13/23 15:50 Dose: Not Given Topiramate (Topiramate 25 Mg Tablet) 25 mg PO BEDTIME [facility] Last Admin: 12/13/23 00:00 Dose: 25 mg Vitamin D (Cholecalciferol (Vitamin D3) 25 Mcg Tablet) 50 mcg PO DAILY [facility] Last Admin: 12/13/23 08:16 Dose: 50 mcg Home Medications ?Medication ?Instructions ?Recorded ?Confirmed ?Last Taken ?Type atorvastatin 40 mg tablet 40 mg PO BEDTIME 12/12/23 12/12/23 12/10/23 History cholecalciferol (vitamin D3) 50 50 mcg PO DAILY 12/12/23 12/12/23 12/10/23 History mcg (2,000 unit) tablet docusate sodium 100 mg capsule 100 mg PO BID PRN Constipation 12/12/23 12/12/23 12/10/23 History insulin degludec 200 unit/mL (3 See Protocol subcut DAILY 12/12/23 12/12/23 12/10/23 History mL) subcutaneous pen (Tresiba FlexTouch U-200 insulin) lisinopril 5 mg tablet 5 mg PO DAILY 12/12/23 12/12/23 12/10/23 History topiramate 25 mg tablet 25 mg PO BEDTIME 12/12/23 12/12/23 12/10/23 History Exam Height,Weight and Vital Signs: Height 5 ft 4 in Weight 58.967 kg Last Vital Signs Temp 98.8 F 12/13/23 18:23 Pulse 92 12/13/23 18:23 Resp 18 12/13/23 18:23 BP 101/55 L 12/13/23 18:23 Pulse Ox 95 12/13/23 18:23 O2 Del Method Room Air 12/13/23 18:23 O2 Flow Rate 3 12/13/23 15:59 Pertinent Lab Results Pertinent Lab Results: Laboratory Tests 12/12/23 12/12/23 12/12/23 07:29 08:58 09:29 WBC 11.6 H RBC 4.24 Hgb 11.7 L Hct 34.1 L MCV 80.4 MCH 27.6 MCHC 34.3 RDW 13.7 Plt Count 242 MPV 9.6 Immature Gran % (Auto) 0.9 H Neut % (Auto) 91.3 H Lymph % (Auto) 4.7 L [place] % (Auto) 2.6 Eos % (Auto) 0.2 Baso % (Auto) 0.3 Lymph # (Auto) 0.5 L [place] # (Auto) 0.3 Eos # (Auto) 0.0 Baso # (Auto) 0.0 Abs Immat Gran (auto) 0.11 H Absolute Neuts (auto) 10.6 H Absolute Nucleated RBC 0.000 Nucleated RBC % (auto) 0.0 Smear Tech's Comments VERIFIED Sodium 135 Potassium 3.6 Chloride 102 Carbon Dioxide 25 Anion Gap 12 BUN 10 Creatinine 0.83 Estim Creat Clear Calc 69.2 Estimated GFR > 60 POC Glucose 268 H 213 H Random Glucose 305 H Lactic Acid 1.1 Calcium 9.5 Magnesium 1.7 Iron TIBC % Saturation Unsat Iron Binding Ferritin Total Bilirubin 0.8 AST 13 ALT 12 Alkaline Phosphatase 119 H Total Protein 7.3 Albumin 3.3 L Vitamin B12 Folate Urine Color Urine Appearance Urine pH Ur Specific [place] Urine Protein Urine Glucose (UA) Urine Ketones Urine Blood Urine Nitrite Ur Leukocyte Esterase Urine RBC Urine WBC Ur Squamous Epith Cells Urine Bacteria Hyaline Casts Chlam trachomat DNA PCR Influenza Type A (PCR) NEGATIVE Influenza Type B (PCR) NEGATIVE N.gonorrhoeae DNA (PCR) RSV RNA Qual (PCR) NEGATIVE SARS-CoV-2 RNA (RT-PCR) NEGATIVE Blood Type Antibody Screen 12/12/23 12/12/23 12/12/23 10:29 11:45 14:42 WBC RBC Hgb Hct MCV MCH MCHC RDW Plt Count MPV Immature Gran % (Auto) Neut % (Auto) Lymph % (Auto) [place] % (Auto) Eos % (Auto) Baso % (Auto) Lymph # (Auto) [place] # (Auto) Eos # (Auto) Baso # (Auto) Abs Immat Gran (auto) Absolute Neuts (auto) Absolute Nucleated RBC Nucleated RBC % (auto) Smear Tech's Comments Sodium Potassium Chloride Carbon Dioxide Anion Gap BUN Creatinine Estim Creat Clear Calc Estimated GFR POC Glucose 103 152 H Random Glucose Lactic Acid Calcium Magnesium Iron TIBC % Saturation Unsat Iron Binding Ferritin Total Bilirubin AST ALT Alkaline Phosphatase Total Protein Albumin Vitamin B12 Folate Urine Color Yellow Urine Appearance Cloudy Urine pH 7.0 Ur Specific [place] 1.025 Urine Protein 30 (1+) H Urine Glucose (UA) >=1000 H Urine Ketones Trace Urine Blood Large (3+) H Urine Nitrite Positive H Ur Leukocyte Esterase Moderate (2+) H Urine RBC >20 H Urine WBC >50 H Ur Squamous Epith Cells 0-2 Urine Bacteria Trace Hyaline Casts 0-2 Chlam trachomat DNA PCR NOT DETECTED Influenza Type A (PCR) Influenza Type B (PCR) N.gonorrhoeae DNA (PCR) NOT DETECTED RSV RNA Qual (PCR) SARS-CoV-2 RNA (RT-PCR) Blood Type Antibody Screen 12/12/23 12/12/23 12/13/23 16:19 21:19 02:07 WBC RBC Hgb Hct MCV MCH MCHC RDW Plt Count MPV Immature Gran % (Auto) Neut % (Auto) Lymph % (Auto) [place] % (Auto) Eos % (Auto) Baso % (Auto) Lymph # (Auto) [place] # (Auto) Eos # (Auto) Baso # (Auto) Abs Immat Gran (auto) Absolute Neuts (auto) Absolute Nucleated RBC Nucleated RBC % (auto) Smear Tech's Comments Sodium Potassium Chloride Carbon Dioxide Anion Gap BUN Creatinine Estim Creat Clear Calc Estimated GFR POC Glucose 300 H 188 H Random Glucose Lactic Acid 1.1 Calcium Magnesium Iron TIBC % Saturation Unsat Iron Binding Ferritin Total Bilirubin AST ALT Alkaline Phosphatase Total Protein Albumin Vitamin B12 Folate Urine Color Urine Appearance Urine pH Ur Specific [place] Urine Protein Urine Glucose (UA) Urine Ketones Urine Blood Urine Nitrite Ur Leukocyte Esterase Urine RBC Urine WBC Ur Squamous Epith Cells Urine Bacteria Hyaline Casts Chlam trachomat DNA PCR Influenza Type A (PCR) Influenza Type B (PCR) N.gonorrhoeae DNA (PCR) RSV RNA Qual (PCR) SARS-CoV-2 RNA (RT-PCR) Blood Type Antibody Screen 12/13/23 12/13/23 12/13/23 05:59 06:20 07:20 WBC 8.8 RBC 3.17 L D Hgb 8.6 L D Hct 26.0 L D MCV 82.0 MCH 27.1 MCHC 33.1 RDW 13.9 Plt Count 154 L D MPV 10.3 Immature Gran % (Auto) Neut % (Auto) Lymph % (Auto) [place] % (Auto) Eos % (Auto) Baso % (Auto) Lymph # (Auto) [place] # (Auto) Eos # (Auto) Baso # (Auto) Abs Immat Gran (auto) Absolute Neuts (auto) Absolute Nucleated RBC 0.000 Nucleated RBC % (auto) 0.0 Smear Tech's Comments Sodium 137 Potassium 3.1 L Chloride 108 Carbon Dioxide 18 L Anion Gap 14 BUN 8 L Creatinine 0.69 Estim Creat Clear Calc 83.2 Estimated GFR > 60 POC Glucose 173 H Random Glucose 196 H Lactic Acid Calcium 8.6 D Magnesium Iron 9 L TIBC 115 L % Saturation 8 L Unsat Iron Binding 106 Ferritin 296 H Total Bilirubin AST ALT Alkaline Phosphatase Total Protein Albumin Vitamin B12 Folate Urine Color Urine Appearance Urine pH Ur Specific [place] Urine Protein Urine Glucose (UA) Urine Ketones Urine Blood Urine Nitrite Ur Leukocyte Esterase Urine RBC Urine WBC Ur Squamous Epith Cells Urine Bacteria Hyaline Casts Chlam trachomat DNA PCR Influenza Type A (PCR) Influenza Type B (PCR) N.gonorrhoeae DNA (PCR) RSV RNA Qual (PCR) SARS-CoV-2 RNA (RT-PCR) Blood Type Antibody Screen 12/13/23 12/13/23 12/13/23 10:27 11:22 15:43 WBC RBC Hgb 8.7 L Hct 25.1 L MCV MCH MCHC RDW Plt Count MPV Immature Gran % (Auto) Neut % (Auto) Lymph % (Auto) [place] % (Auto) Eos % (Auto) Baso % (Auto) Lymph # (Auto) [place] # (Auto) Eos # (Auto) Baso # (Auto) Abs Immat Gran (auto) Absolute Neuts (auto) Absolute Nucleated RBC Nucleated RBC % (auto) Smear Tech's Comments Sodium Potassium Chloride Carbon Dioxide Anion Gap BUN Creatinine Estim Creat Clear Calc Estimated GFR POC Glucose 257 H 185 H Random Glucose Lactic Acid Calcium Magnesium Iron TIBC % Saturation Unsat Iron Binding Ferritin Total Bilirubin AST ALT Alkaline Phosphatase Total Protein Albumin Vitamin B12 439 Folate 9.8 Urine Color Urine Appearance Urine pH Ur Specific [place] Urine Protein Urine Glucose (UA) Urine Ketones Urine Blood Urine Nitrite Ur Leukocyte Esterase Urine RBC Urine WBC Ur Squamous Epith Cells Urine Bacteria Hyaline Casts Chlam trachomat DNA PCR Influenza Type A (PCR) Influenza Type B (PCR) N.gonorrhoeae DNA (PCR) RSV RNA Qual (PCR) SARS-CoV-2 RNA (RT-PCR) Blood Type O Positive Antibody Screen NEGATIVE Airway Mallampati Class: II TM Dist: >3cm Neck ROM: Full Loose/Missing/Broken Teeth: No Heart: RRR Lungs: CTA Assessment and Plan Assessment Anesthesia Assessment: Anesthesia Plan Discussed and Chart Reviewed Final Anesthetic Review Family History of Problems with Anesthesia: No History of Problems with Anesthesia: No NPO: Yes ASA Class: III and Emergency Final Preanesthetic Review: No Changes in Pt Med Stat, Meds/Allgs Chart Reviewed, Consent Obtained/Reviewed and Anes Risks/Benef Reviewed Patient Risk: Intermediate Procedure Risk: Low Anesthetic Plan Anesthetic Plan: MAC: Disposition: Standard PACU
--- NOTE | 2023-12-13 19:27 | MHC.SHP ---
Pre-Procedural Eval Section A - 24 Hr Update-Section A only Date of Service: 12/13/23 The patient is an INPATIENT: Yes Changes since office visit: No Cold of Flu in the past 2 weeks, No New Medical Problems, No Changes in Medication and No Patient answered all questions The patient has been examined within 24 hours of the surgical procedure. The History & Physical has been completed within 30 days and I have reviewed it.: Yes Section B - Complete if H&P > 30 days Chief Complaint: UTI Details of Present Illness: Right pyelonephritis Relevant Social History: None Present Medications: see Short Stay Collaborative assessment Medical History: Significant History History of Previous Operations: No relevant previous surgery Allergies: Allergies Allergy/AdvReac Type Severity Reaction Status Date / Time No Known Allergies Allergy Verified 12/12/23 06:51 Review of Systems Sugical H&P ROS: Negative: Constitution, Cardiovascular, Respiratory, Neurological, Psychiatric, Hem-Onc, Allergic/Immunologic, Gastrointestinal, Genitourinary, Musculoskeletal, Integumentary, Endocrine and Eyes/Ears/Nose/Throat Exam Surgical H&P Exam: Normal: HEENT, Normal: Heart, Normal: Lungs, Normal: Extremities, Normal: Abdomen, Normal: Skin and Normal: Neurological Plan Diagnosis/Plan: Unchanged (Cystoscopy, right retrograde, stent placement) I have reviewed the history and physical and performed a pertinent physical examination on my patient. No changes have occurred unless specified. Time Spent With Patient Time: Total time managing care of this patient today ____ minutes.
[2023-12-13 19:34] LABS: Glucose, Whole Blood 163 mg/dL (60-115)
[2023-12-13] MEDS: levoFLOXacin/D5W 500 MG/100 ML PIGGYBACK 100 MG IV (19:39)
--- NOTE | 2023-12-13 19:39 | PC.NURSE ---
Patient assessed this afternoon and observed to be tremulous. Patient assessed and noted to have fever of 103 orally. Provider notified and at bedside to assess patient. New orders placed for patient to be on cooling blanket and PRN IV Tylenol administered. Patient placed on cooling blanket and temp of 106.3 obtained rectally. Patient packed with cool cloths and updated on plan of care. Frequent monitoring and vitals performed and fever slowly reduced. Patient evaluated at 1730 and temperature was 98.0 rectally and provider notified of results.
--- NOTE | 2023-12-13 19:46 | P.OP_ITS ---
Operative Note Operative Note Date of Service: 12/13/23 Narrative: PreOperative Diagnosis: Right hydronephrosis Post Operative Diagnosis: Right hydronephrosis with pyelonephritis Procedure: Cystoscopy, right retrograde, right stent placement Surgeon: Dr Duglas Gonzalez Anesthesia: Sedation Indications for procedure: Hydronephrosis with pyelonephritis at elevated creatinine Procedure: After informed consent was verified the patient was brought to the operating room and placed in a supine position. Anesthesia was administered per protocol. The patient was placed in modified dorsal lithotomy position and prepped and draped in a sterile fashion. A safety pause time-out was performed. Laterality of procedure and antibiotics were confirmed, appropriate imaging was available A 22 Hungarian cystoscope was introduced per urethra. No abnormality was noted of urethra or bladder. Both ureteric orifices were seen in a normal position. The right ureter was cannulated with an open ended catheter and a retrograde examination was performed. No clear filling defects seen . A Sensor guidewire was placed under fluoroscopy and a good coil was seen within the renal pelvis. A 6 Hungarian by 26 cm double J stent was advanced over the wire and up to the level of the renal pelvis under fluoroscopic and direct visualization. The stent was seen with appropriate coil within the renal pelvis and in the bladder after deployment. The patient tolerated the procedure well and was transferred in a stable condition to the recovery area. Pathology: Drains: As above
[2023-12-13] MEDS: Acetaminophen 325 MG TABLET 975 MG PO (20:21)
[2023-12-13 21:07] LABS: Glucose, Whole Blood 232 mg/dL (60-115)
[2023-12-13] MEDS: Atorvastatin Calcium 40 MG TABLET PO ×2 (21:59)
[2023-12-13] MEDS: Topiramate 25 MG TABLET PO ×2 (21:59)
[2023-12-14] VITALS (21 sets, daily range): BP systolic 89–117; BP diastolic 53–62; PULSE 80–160; RESP 16–21; TEMP 36.3–38.8; O2SAT 90–96
[2023-12-14] MEDS: Lactated Ringers 1,000 ML 999 ML IV ×2 (00:03→07:53)
[2023-12-14] MEDS: 0.9 % Sodium Chloride Flush 3 ML SYRINGE IVFLUSH ×3 (00:03→14:33)
[2023-12-14] MEDS: Acetaminophen 325 MG TABLET 650 MG PO ×2 (02:48→15:49)
[2023-12-14] MEDS: guaiFENesin 200 MG/10 ML 10 ML LIQUID PO ×6 (02:48→22:00)
[2023-12-14] MEDS: Piperacillin Sodium/Tazobactam 4.5 GM in 0.9 % Sodium Chloride 100 ML IV ×3 (02:59→13:43)
--- NOTE | 2023-12-14 04:34 | PM.EVENT ---
Event Note Date of Service: 12/14/23 Event Note: RN reported hypotension which improved with LR bolus. Increased Zosyn dosage to 4.5 g q.6. Patient asymptomatic throughout. Lactic acid normal Time Spent With Patient Time: Total time managing care of this patient today ____ minutes.
[2023-12-14] MEDS: 0.9 % Sodium Chloride 1,000 ML 100 ML IVCONT (04:48)
[2023-12-14] MEDS: Pantoprazole Sodium 40 MG/10 ML VIAL IVPUSH ×2 (06:37→16:05)
[2023-12-14] MEDS: Acetaminophen 1,000 MG/100 ML PIGGYBACK 400 MG IV (07:00)
[2023-12-14 07:17] LABS: Glucose, Whole Blood 132 mg/dL (60-115)
--- NOTE | 2023-12-14 07:57 | PC.NURSE ---
Patient continued to be febrile (T=101.9) with hypotension. Tylenol iv 1000 mg given. Cooling blanket applied. IV LR given x 1.
[2023-12-14] MEDS: levalbuterol HCL 1.25 MG/3 ML VIAL.NEB INHALE ×3 (08:02→19:37)
[2023-12-14] MEDS: Cholecalciferol (Vitamin D3) 25 MCG TABLET 50 MCG PO (08:14)
[2023-12-14] MEDS: Loratadine 10 MG TABLET PO (08:14)
[2023-12-14] MEDS: medroxyPROGESTERone Acetate 5 MG TABLET 10 MG PO (08:14)
[2023-12-14] MEDS: Insulin Glargine,Hum.rec.anlog 100 UNIT/ML 10 ML VIAL 10 UNIT SUBCUT (08:15)
[2023-12-14 08:20] LABS: Hematocrit 25.7 % (37.0-47.0); Hemoglobin 8.4 g/dl (12.0-16.0); Mean Corpuscular HGB Conc 32.7 g/dl (31.0-35.0); Mean Corpuscular Hemoglobin 26.7 pg (27.0-33.0); Mean Corpuscular Volume 81.6 fL (80.0-98.0); Mean Platelet Volume 10.3 fL (9.4-12.3); Platelet Count 152 X10*3/uL (160-400); Red Blood Count 3.15 X10*6/uL (4.20-5.50); Red Cell Distribution Width 14.4 % (11.0-16.0); White Blood Count 9.7 X10*3/uL (4.8-10.8)
[2023-12-14 09:01] LABS: Anion Gap 16 (12-20); Blood Urea Nitrogen 6 mg/dL (9-16); Calcium 7.9 mg/dL (8.4-10.2); Carbon Dioxide 15 mmol/L (22-29); Chloride 110 mmol/L (96-108); Creatinine Clr Calc Pharmacy 85.8; Estimated Glomerular Filt Rate > 60; Glucose Random 140 mg/dL (60-115); Potassium 2.9 mmol/L (3.3-5.1); Sodium 138 mmol/L (135-145)
[2023-12-14] MEDS: Potassium Chloride ER 20 MEQ TAB.ER.PRT 40 MEQ PO (10:01)
--- NOTE | 2023-12-14 10:14 | HO.POSTANES ---
Post Anesthesia Evaluation Post Anesthesia Evaluation Date of Service: 12/14/23 Vital Signs: Vital Signs Temp Pulse Resp BP Pulse Ox O2 Del Method O2 Flow Rate 12/14/23 08:04 97 18 12/14/23 08:00 98.2 F 12/14/23 07:58 98.2 F 12/14/23 07:35 101.8 F H 97 18 90/57 L 94 Nasal Cannula 2 12/14/23 06:31 101.9 F H 112 H 20 96/53 L 94 Nasal Cannula 2 12/14/23 03:45 101.5 F H 125 H 20 102/56 L Room Air 12/14/23 03:04 101.2 F H 160 H 21 H 90 L Room Air 12/14/23 02:45 99.6 F 12/13/23 23:10 97.5 F 71 18 76/48 L 99 Nasal Cannula 2 Anesthesia: Monitored Mental Status: Awake Pain Control: Satisfactory Nausea/Vomiting: None Hydration: Adequate (fluid bolus overnight for low blood pressure) Anesthesia-Related Issues: No Anes. Related Issues
[2023-12-14 11:08] LABS: Glucose, Whole Blood 199 mg/dL (60-115)
--- NOTE | 2023-12-14 11:37 | PC.NURSE ---
ambulated on the hallway, no dizziness , BP 94/59 after ambulation
[2023-12-14] MEDS: Insulin Lispro 100 UNIT/ML 3 ML VIAL SUBCUT ×3 (12:04→21:59)
--- NOTE | 2023-12-14 13:45 | W.PM.IDCN ---
History of Present Illness Data of Consult Service Date: 12/13/23 Requesting physician: Catalino Gonzales Primary Care Provider: Elizabeth Saavedra DO HPI Reason for consult: sepsis She presents with some urinary frequency as well as fatigue. She has tachycardia to 112 and temperature of 101.9. She has bacteremia E coli resistant only to Levaquin. She has been seen by Urology. There is 2 mm stone at right ureteropelvic junction,only mild hydronephrosis. She feels better. Review of Systems Review of Systems: Yes all other systems are reviewed and are negative [facility] Past Medical History Medical History (Updated 12/14/23 @ 13:49 by Barbie Nolasco MD) Sepsis Hypercholesteremia Migraines Diabetes Family History Family history: reviewed and not pertinent Social History Social History Household Members: Spouse Housing: Apartment Do you presently have visiting nurse or other home services: No Alcohol intake: never Patient Tobacco Use Status: Current everyday Tobacco user Tobacco use type: Cigarette Cigarettes Per Day: 2 e-Cigarette/Vaping Use: Never Used Second Hand Smoke Exposure: Yes service: No Meds Allergies Allergy/AdvReac Type Severity Reaction Status Date / Time No Known Allergies Allergy Verified 12/12/23 06:51 Active Medications: Current Medications Acetaminophen (Acetaminophen 325 Mg Tablet) 650 mg PO Q6H PRN PRN Reason: Pain, Mild (Pain Scale 1-3), fever or headache Last Admin: 12/14/23 02:48 Dose: 650 mg Atorvastatin Calcium (Atorvastatin Calcium 40 Mg Tablet) 40 mg PO BEDTIME [facility] Last Admin: 12/13/23 21:59 Dose: 40 mg Docusate Sodium (Docusate Sodium 100 Mg Capsule) 100 mg PO BID PRN PRN Reason: Constipation Glucose (Glucose Gel 15 Gm Gel..Gram.) 15 gm PO Q15M PRN; Protocol PRN Reason: per Hypoglycemia Standing Ord. Guaifenesin (Guaifenesin 200 Mg/10 Ml 10 Ml Liquid) 10 ml PO Q4H ARLENE Last Admin: 12/14/23 13:43 Dose: 10 ml Dextrose (D10) 250 mls @ 750 mls/hr IV Q15M PRN; Protocol PRN Reason: per Hypoglycemia Standing Ord. Sodium Chloride (Ns) 1,000 mls @ 100 mls/hr IVCONT .Q10H [facility] Last Admin: 12/14/23 04:48 Dose: 100 mls/hr Insulin Glargine (Insulin Glargine,Hum.Rec.Anlog 100 Unit/Ml 10 Ml Vial) 10 unit SUBCUT DAILY [facility] Last Admin: 12/14/23 08:15 Dose: 10 unit Insulin Human Lispro (Insulin Lispro 100 Unit/Ml 3 Ml Vial) 0 unit SUBCUT QIDACHS [facility]; Protocol Last Admin: 12/14/23 12:04 Dose: 2 unit Levalbuterol HCl (Levalbuterol Hcl 1.25 Mg/3 Ml Vial.Neb) 1.25 mg INHALE RTID [facility] Last Admin: 12/14/23 13:05 Dose: 1.25 mg Loratadine (Loratadine 10 Mg Tablet) 10 mg PO DAILY [facility] Last Admin: 12/14/23 08:14 Dose: 10 mg Medroxyprogesterone Acetate (Medroxyprogesterone Acetate 5 Mg Tablet) 10 mg PO DAILY [facility] Last Admin: 12/14/23 08:14 Dose: 10 mg Melatonin (Melatonin 3 Mg Tablet) 6 mg PO BEDTIME PRN PRN Reason: Insomnia Pantoprazole Sodium (Pantoprazole Sodium 40 Mg/10 Ml Vial) 40 mg IVPUSH BID@0630,1630 [facility] Last Admin: 12/14/23 06:37 Dose: 40 mg Sodium Chloride (0.9 % Sodium Chloride Flush 3 Ml Syringe) 3 ml IVFLUSH QSHIFT [facility] Last Admin: 12/14/23 08:14 Dose: 3 ml Topiramate (Topiramate 25 Mg Tablet) 25 mg PO BEDTIME [facility] Last Admin: 12/13/23 21:59 Dose: 25 mg Vitamin D (Cholecalciferol (Vitamin D3) 25 Mcg Tablet) 50 mcg PO DAILY [facility] Last Admin: 12/14/23 08:14 Dose: 50 mcg Home Medications ?Medication ?Instructions ?Recorded ?Confirmed ?Last Taken ?Type atorvastatin 40 mg tablet 40 mg PO BEDTIME 12/12/23 12/12/23 12/10/23 History cholecalciferol (vitamin D3) 50 50 mcg PO DAILY 12/12/23 12/12/23 12/10/23 History mcg (2,000 unit) tablet docusate sodium 100 mg capsule 100 mg PO BID PRN Constipation 12/12/23 12/12/23 12/10/23 History insulin degludec 200 unit/mL (3 See Protocol subcut DAILY 12/12/23 12/12/23 12/10/23 History mL) subcutaneous pen (Tresiba FlexTouch U-200 insulin) lisinopril 5 mg tablet 5 mg PO DAILY 12/12/23 12/12/23 12/10/23 History topiramate 25 mg tablet 25 mg PO BEDTIME 12/12/23 12/12/23 12/10/23 History Physical Exam Vital Signs: Vital Signs: Last Vital Signs Temp 97.3 F 12/14/23 11:13 Pulse 80 12/14/23 13:07 Resp 16 12/14/23 13:07 BP 94/59 L 12/14/23 11:37 Pulse Ox 96 12/14/23 13:07 O2 Del Method Room Air 12/14/23 11:13 O2 Flow Rate 2 12/14/23 07:35 Oxygen Flow Rate 2 12/13/23 19:22 BMI result Body Mass Index 22.3 Const: General: cooperative HEENT: Head: Yes normal to inspection Face and sinus: Yes normal facial exam Mouth: Normal oral and palatal mucosa present Teeth and gingiva: dentition normal Eyes: General: appearance normal, both eyes and all related structures Pupils: Equal, round and reactive pupils present Resp: Effort & Inspection: normal respiratory effort Cardio: Rate: regular rate Rhythm: regular rhythm GI: Palpation (GI): Soft to palpation and nontender : General: Yes no CVA tenderness Back/Spine/Pelvis: Back: no CVA tenderness Skin: General skin exam: no rashes or lesions noted Neuro: General: moves all extremities Cranial nerves: Yes Equal, round and reactive pupils present Extrem: General: Yes normal to inspection Psych: Appearance: grossly normal Results Labs 12/14/23 08:09 12/14/23 08:09 Labs: Short CBC 12/14/23 Range/Units 08:09 WBC 9.7 (4.8-10.8) X10*3/uL Hgb 8.4 L (12.0-16.0) g/dl Hct 25.7 L (37.0-47.0) % Plt Count 152 L (160-400) X10*3/uL BMP 12/14/23 08:09 Sodium 138 Potassium 2.9 L* Chloride 110 H Carbon Dioxide 15 L BUN 6 L Creatinine 0.67 Calcium 7.9 L D Microbiology Microbiology Results: Microbiology 12/13/23 10:50 Blood - Venous Blood Culture - Preliminary No growth after 24 hours. 12/13/23 10:27 Blood - Venous Blood Culture - Preliminary No growth after 24 hours. 12/12/23 07:35 Blood - Venous Blood Culture - Preliminary Gram negative rob 12/12/23 07:29 Blood - Venous Blood Culture - Preliminary Gram negative rob Assessment and Plan (1) Hydronephrosis, right: Status: Acute (2) Gram-negative bacteremia: Status: Acute (3) UTI (urinary tract infection): Qualifiers: Hematuria presence: with hematuria Urinary tract infection type: site unspecified Qualified Code(s): N39.0 - Urinary tract infection, site not specified; R31.9 - Hematuria, unspecified Status: Acute (4) Sepsis: Status: Acute Plan She has heart rate 108 and temperature 101.9 simutaneously around admission. There is likely nephrolithiasis as cause and no surgical procedure. She has E coli sensitive to all except Levofloxacin. Would switch piperacillin/tazobactam to Ceftriaxone 2 g daily Switch to po Ceftin 500 mg bid total 14 days when taking po well and not febrile. Follow Urology outpatient.
--- NOTE | 2023-12-14 13:50 | HO.PM.IMPN ---
Subjective Subjective Date of Service: 12/14/23 Interval History: sepsis ,uti,uteral stone Review of Systems fevers improving denies any nausea or vomitin little soar after urological procedure yesterday Physical Exam Vital Signs: Vital Signs: Last Vital Signs Temp 97.3 F 12/14/23 11:13 Pulse 80 12/14/23 13:07 Resp 16 12/14/23 13:07 BP 94/59 L 12/14/23 11:37 Pulse Ox 96 12/14/23 13:07 O2 Del Method Room Air 12/14/23 11:13 O2 Flow Rate 2 12/14/23 07:35 Oxygen Flow Rate 2 12/13/23 19:22 BMI result Body Mass Index 22.3 Appearance: Alert.? Oriented X3.? cvs: [id number], [id number] , no murmur res: clear to auscultation ,no rhonchii or wheezing abd: no rebound or guarding ,nt, bs present. ext pulses present , no cyanosis . neuro: axo3 , nonfocal. Objective Data Active Medications Acetaminophen (Acetaminophen 325 Mg Tablet) 650 mg PO Q6H PRN PRN Reason: Pain, Mild (Pain Scale 1-3), fever or headache Last Admin: 12/14/23 02:48 Dose: 650 mg Documented By: TAMIE Atorvastatin Calcium (Atorvastatin Calcium 40 Mg Tablet) 40 mg PO BEDTIME [facility] Last Admin: 12/13/23 21:59 Dose: 40 mg Documented By: DAXA Docusate Sodium (Docusate Sodium 100 Mg Capsule) 100 mg PO BID PRN PRN Reason: Constipation Glucose (Glucose Gel 15 Gm Gel..Gram.) 15 gm PO Q15M PRN; Protocol PRN Reason: per Hypoglycemia Standing Ord. Guaifenesin (Guaifenesin 200 Mg/10 Ml 10 Ml Liquid) 10 ml PO Q4H [facility] Last Admin: 12/14/23 13:43 Dose: 10 ml Documented By: STEFFANY Dextrose (D10) 250 mls @ 750 mls/hr IV Q15M PRN; Protocol PRN Reason: per Hypoglycemia Standing Ord. Sodium Chloride (Ns) 1,000 mls @ 100 mls/hr IVCONT .Q10H [facility] Last Admin: 12/14/23 04:48 Dose: 100 mls/hr Documented By: DAXA Ceftriaxone Sodium 2 gm/ (Sodium Chloride) 50 mls @ 100 mls/hr IV Q24H [facility] Insulin Glargine (Insulin Glargine,Hum.Rec.Anlog 100 Unit/Ml 10 Ml Vial) 10 unit SUBCUT DAILY [facility] Last Admin: 12/14/23 08:15 Dose: 10 unit Documented By: STEFFANY Insulin Human Lispro (Insulin Lispro 100 Unit/Ml 3 Ml Vial) 0 unit SUBCUT QIDACHS [facility]; Protocol Last Admin: 12/14/23 12:04 Dose: 2 unit Documented By: STEFFANY Levalbuterol HCl (Levalbuterol Hcl 1.25 Mg/3 Ml Vial.Neb) 1.25 mg INHALE RTID [facility] Last Admin: 12/14/23 13:05 Dose: 1.25 mg Documented By: ORLIN Loratadine (Loratadine 10 Mg Tablet) 10 mg PO DAILY [facility] Last Admin: 12/14/23 08:14 Dose: 10 mg Documented By: STEFFANY Medroxyprogesterone Acetate (Medroxyprogesterone Acetate 5 Mg Tablet) 10 mg PO DAILY [facility] Last Admin: 12/14/23 08:14 Dose: 10 mg Documented By: STEFFANY Melatonin (Melatonin 3 Mg Tablet) 6 mg PO BEDTIME PRN PRN Reason: Insomnia Pantoprazole Sodium (Pantoprazole Sodium 40 Mg/10 Ml Vial) 40 mg IVPUSH BID@0630,1630 [facility] Last Admin: 12/14/23 06:37 Dose: 40 mg Documented By: DAXA Sodium Chloride (0.9 % Sodium Chloride Flush 3 Ml Syringe) 3 ml IVFLUSH QSHIFT [facility] Last Admin: 12/14/23 08:14 Dose: 3 ml Documented By: STEFFANY Topiramate (Topiramate 25 Mg Tablet) 25 mg PO BEDTIME [facility] Last Admin: 12/13/23 21:59 Dose: 25 mg Documented By: DAXA Vitamin D (Cholecalciferol (Vitamin D3) 25 Mcg Tablet) 50 mcg PO DAILY [facility] Last Admin: 12/14/23 08:14 Dose: 50 mcg Documented By: STEFFANY Labs 12/14/23 08:09 12/14/23 08:09 Labs: Laboratory Results - last 24 hr 12/13/23 12/13/23 12/13/23 15:43 19:22 21:04 MCV MCH MCHC RDW Plt Count MPV Absolute Nucleated RBC Nucleated RBC % (auto) Anion Gap Estim Creat Clear Calc Estimated GFR POC Glucose 185 H 163 H 232 H Random Glucose Lactic Acid Calcium 12/14/23 12/14/23 12/14/23 01:23 07:03 08:09 MCV 81.6 MCH 26.7 L MCHC 32.7 RDW 14.4 Plt Count 152 L MPV 10.3 Absolute Nucleated RBC 0.000 Nucleated RBC % (auto) 0.0 Anion Gap 16 Estim Creat Clear Calc 85.8 Estimated GFR > 60 POC Glucose 132 H Random Glucose 140 H Lactic Acid 2.0 Calcium 7.9 L D 12/14/23 10:50 MCV MCH MCHC RDW Plt Count MPV Absolute Nucleated RBC Nucleated RBC % (auto) Anion Gap Estim Creat Clear Calc Estimated GFR POC Glucose 199 H Random Glucose Lactic Acid Calcium Microbiology Microbiology Results: Microbiology 12/13/23 10:50 Blood Culture - Preliminary Blood - Venous No growth after 24 hours. 12/13/23 10:27 Blood Culture - Preliminary Blood - Venous No growth after 24 hours. 12/12/23 07:35 Blood Culture - Preliminary Blood - Venous Gram negative rob 12/12/23 07:29 Blood Culture - Preliminary Blood - Venous Gram negative rob Assessment and Plan (1) Sepsis: Status: Acute (2) Hydronephrosis, right: Status: Acute (3) Gram-negative bacteremia: Status: Acute (4) UTI (urinary tract infection): Status: Acute Assessment and Plan: 53-year-old female with bacteremia, UTI, bronchitis severe Sepsis secondary to bacteremia/UTI, bronchitis blood pressure seems holding in 90's ,bp 89/56 is error ,when rechecked it was 94/59 mmhg. tachycardia,fevers improving Renal ultrasound shows hydronephrosis, renal cyst complexleft side. ct abd:There are nonobstructing bilateral renal calculi. There is mild right hydronephroureter secondary to a 2 mm calculus at the right ureterovesicular junction. There are a few tiny 1-3 mm nonobstructing left renal upper and lower pole calculi. No left ureteric calculus is seen, and there is no left hydronephroureter. blood culture grew -ecoli senstive to ceftriaxone ,repeat blood culture also gram neg rob. Started on IV antibiotics chnaged to ceftriaxone ,tylenol for fevers . Urology evaluation- Cystoscopy, right retrograde, right stent placement on 12/13/23. anemia/thrombocytopenia: Patient denies any gross bleeding, will monitor H&H, ppi, anemia workup including occult blood. Anemia/thrombocytopenia might be related to sepsis. Finger htn: hold home meds dm with hyperglycemia fs with coverage and lantus hlp: on atorvastatin dvt prophylax: dc lovenox due to anemia ongoning need considering ongoing Gram-negative bacteremia, sepsis, UTI: Need IV antibiotics and urology input , also d/w Icu recomended -continue antibiotics ,fluids ,cooling blanket , if further decompensation ,will each out again to icu. Quality Stroke Does the patient have a stroke diagnosis?: No VTE Prior VTE?: No VTE Risk Level:: Medical - moderate - high VTE Device Contraindication: N/A - Device Ordered VTE Drug Contraindication: Patient Refused
[2023-12-14] MEDS: cefTRIAXone sodium 2 GM in 0.9 % Sodium Chloride 50 ML IV (14:33)
[2023-12-14 14:58] LABS: Magnesium 1.4 mg/dL (1.6-2.6)
[2023-12-14 14:59] LABS: Venous Blood Gas Refer to POC result
[2023-12-14 15:00] LABS: VBG Base Excess -2.6 mmol/L; VBG HCO3 20 mmol/L (22-26); VBG pCO2 30 mmHg; VBG pH 7.44 (7.32-7.43); VBG pO2 33 mmHg
[2023-12-14 16:03] LABS: Glucose, Whole Blood 255 mg/dL (60-115)
[2023-12-14] MEDS: Magnesium Oxide 400 MG TABLET 800 MG PO (17:29)
[2023-12-14] MEDS: Sodium Bicarbonate 650 MG TABLET PO ×2 (17:29→22:00)
[2023-12-14 20:20] LABS: Glucose, Whole Blood 241 mg/dL (60-115)
[2023-12-14] MEDS: Atorvastatin Calcium 40 MG TABLET PO (22:00)
[2023-12-14] MEDS: Topiramate 25 MG TABLET PO (22:00)
[2023-12-15] VITALS (12 sets, daily range): BP systolic 91–130; BP diastolic 61–75; PULSE 86–111; RESP 16–20; TEMP 36.5–38.2; O2SAT 93–99
[2023-12-15] MEDS: Acetaminophen 325 MG TABLET 650 MG PO ×3 (00:36→17:26)
[2023-12-15] MEDS: 0.9 % Sodium Chloride Flush 3 ML SYRINGE IVFLUSH ×3 (00:36→17:18)
[2023-12-15] MEDS: guaiFENesin 200 MG/10 ML 10 ML LIQUID PO ×5 (00:37→23:01)
--- NOTE | 2023-12-15 00:40 | PC.NURSE ---
Oral [id number]=051.8 Acetaminophen 650 mg po given around 1235. HR went to 130 with coughing but decreased to 99 with no intervention. Will continue to monitor.
[2023-12-15] MEDS: Pantoprazole Sodium 40 MG/10 ML VIAL IVPUSH ×2 (05:41→17:18)
[2023-12-15 07:14] LABS: Glucose, Whole Blood 168 mg/dL (60-115)
[2023-12-15] MEDS: levalbuterol HCL 1.25 MG/3 ML VIAL.NEB INHALE ×3 (07:25→20:26)
[2023-12-15] MEDS: Sodium Bicarbonate 650 MG TABLET PO ×4 (08:17→20:10)
[2023-12-15] MEDS: Insulin Lispro 100 UNIT/ML 3 ML VIAL SUBCUT ×4 (08:17→20:10)
[2023-12-15] MEDS: Insulin Glargine,Hum.rec.anlog 100 UNIT/ML 10 ML VIAL 10 UNIT SUBCUT (08:17)
[2023-12-15] MEDS: Magnesium Oxide 400 MG TABLET 800 MG PO ×2 (08:17→17:18)
[2023-12-15] MEDS: Loratadine 10 MG TABLET PO (08:17)
[2023-12-15] MEDS: Cholecalciferol (Vitamin D3) 25 MCG TABLET 50 MCG PO (08:17)
[2023-12-15] MEDS: medroxyPROGESTERone Acetate 5 MG TABLET 10 MG PO (08:17)
[2023-12-15 08:39] LABS: Hematocrit 30.4 % (37.0-47.0); Hemoglobin 10.3 g/dl (12.0-16.0)
[2023-12-15 08:58] LABS: Anion Gap 12 (12-20); Blood Urea Nitrogen 5 mg/dL (9-16); Calcium 8.4 mg/dL (8.4-10.2); Carbon Dioxide 18 mmol/L (22-29); Chloride 111 mmol/L (96-108); Creatinine Clr Calc Pharmacy 88.4; Estimated Glomerular Filt Rate > 60; Glucose Random 176 mg/dL (60-115); Magnesium 1.7 mg/dL (1.6-2.6); Potassium 3.1 mmol/L (3.3-5.1); Sodium 138 mmol/L (135-145)
[2023-12-15] MEDS: Potassium Chloride ER 20 MEQ TAB.ER.PRT 40 MEQ PO (09:19)
[2023-12-15 11:02] LABS: Glucose, Whole Blood 165 mg/dL (60-115)
--- NOTE | 2023-12-15 12:53 | HO.PM.IMPN ---
Subjective Subjective Date of Service: 12/15/23 Interval History: anemia gram neg bactermia Review of Systems last fever last nigth @midnight feels improving denies any urinary c/o or cough Physical Exam Vital Signs: Vital Signs: Last Vital Signs Temp 97.7 F 12/15/23 11:02 Pulse 86 12/15/23 11:02 Resp 18 12/15/23 11:02 BP 91/61 12/15/23 11:02 Pulse Ox 96 12/15/23 11:02 O2 Del Method Room Air 12/15/23 11:02 O2 Flow Rate 2 12/14/23 07:35 Oxygen Flow Rate 2 12/13/23 19:22 BMI result Body Mass Index 22.3 Appearance: Alert.? Oriented X3.?feels weak cvs: rrr, [id number]. res: clear to auscultation ,no rhonchii or wheezing abd: no rebound or guarding ,nt, bs present. ext pulses present , no cyanosis . neuro: axo3 , nonfocal. Objective Data Active Medications Acetaminophen (Acetaminophen 325 Mg Tablet) 650 mg PO Q6H PRN PRN Reason: Pain, Mild (Pain Scale 1-3), fever or headache Last Admin: 12/15/23 08:21 Dose: 650 mg Documented By: STEFFANY Atorvastatin Calcium (Atorvastatin Calcium 40 Mg Tablet) 40 mg PO BEDTIME [facility] Last Admin: 12/14/23 22:00 Dose: 40 mg Documented By: DAXA Docusate Sodium (Docusate Sodium 100 Mg Capsule) 100 mg PO BID PRN PRN Reason: Constipation Glucose (Glucose Gel 15 Gm Gel..Gram.) 15 gm PO Q15M PRN; Protocol PRN Reason: per Hypoglycemia Standing Ord. Guaifenesin (Guaifenesin 200 Mg/10 Ml 10 Ml Liquid) 10 ml PO Q4H [facility] Last Admin: 12/15/23 11:12 Dose: 10 ml Documented By: STEFFANY Dextrose (D10) 250 mls @ 750 mls/hr IV Q15M PRN; Protocol PRN Reason: per Hypoglycemia Standing Ord. Ceftriaxone Sodium 2 gm/ (Sodium Chloride) 50 mls @ 100 mls/hr IV Q24H [facility] Last Infusion: 12/14/23 15:35 Dose: Infused Documented By: STEFFANY Insulin Glargine (Insulin Glargine,Hum.Rec.Anlog 100 Unit/Ml 10 Ml Vial) 10 unit SUBCUT DAILY [facility] Last Admin: 12/15/23 08:17 Dose: 10 unit Documented By: STEFFANY Insulin Human Lispro (Insulin Lispro 100 Unit/Ml 3 Ml Vial) 0 unit SUBCUT QIDACHS [facility]; Protocol Last Admin: 12/15/23 11:13 Dose: 2 unit Documented By: STEFFANY Levalbuterol HCl (Levalbuterol Hcl 1.25 Mg/3 Ml Vial.Neb) 1.25 mg INHALE RTID [facility] Last Admin: 12/15/23 07:25 Dose: 1.25 mg Documented By: ORLIN Loratadine (Loratadine 10 Mg Tablet) 10 mg PO DAILY [facility] Last Admin: 12/15/23 08:17 Dose: 10 mg Documented By: STEFFANY Magnesium Oxide (Magnesium Oxide 400 Mg Tablet) 800 mg PO BIDPC [facility] Last Admin: 12/15/23 08:17 Dose: 800 mg Documented By: STEFFANY Medroxyprogesterone Acetate (Medroxyprogesterone Acetate 5 Mg Tablet) 10 mg PO DAILY [facility] Last Admin: 12/15/23 08:17 Dose: 10 mg Documented By: STEFFANY Melatonin (Melatonin 3 Mg Tablet) 6 mg PO BEDTIME PRN PRN Reason: Insomnia Pantoprazole Sodium (Pantoprazole Sodium 40 Mg/10 Ml Vial) 40 mg IVPUSH BID@0630,1630 [facility] Last Admin: 12/15/23 05:41 Dose: 40 mg Documented By: DAXA Sodium Bicarbonate (Sodium Bicarbonate 650 Mg Tablet) 650 mg PO QID [facility] Last Admin: 12/15/23 08:17 Dose: 650 mg Documented By: STEFFANY Sodium Chloride (0.9 % Sodium Chloride Flush 3 Ml Syringe) 3 ml IVFLUSH QSHIFT [facility] Last Admin: 12/15/23 08:18 Dose: 3 ml Documented By: STEFFANY Topiramate (Topiramate 25 Mg Tablet) 25 mg PO BEDTIME [facility] Last Admin: 12/14/23 22:00 Dose: 25 mg Documented By: DAXA Vitamin D (Cholecalciferol (Vitamin D3) 25 Mcg Tablet) 50 mcg PO DAILY [facility] Last Admin: 12/15/23 08:17 Dose: 50 mcg Documented By: STEFFANY Labs 12/15/23 08:10 12/15/23 08:10 Labs: Laboratory Results - last 24 hr 12/13/23 12/14/23 12/14/23 10:27 08:09 14:55 VBG pH 7.44 H VBG pCO2 30 VBG pO2 33 VBG HCO3 20 L VBG O2 Saturation 52.0 VBG Base Excess -2.6 Anion Gap Estim Creat Clear Calc Estimated GFR POC Glucose Random Glucose Calcium Magnesium 1.4 L* Blood Type O Positive Antibody Screen NEGATIVE Crossmatch See Detail 12/14/23 12/14/23 12/15/23 15:57 20:09 07:07 VBG pH VBG pCO2 VBG pO2 VBG HCO3 VBG O2 Saturation VBG Base Excess Anion Gap Estim Creat Clear Calc Estimated GFR POC Glucose 255 H 241 H 168 H Random Glucose Calcium Magnesium Blood Type Antibody Screen Crossmatch 12/15/23 12/15/23 08:10 10:49 VBG pH VBG pCO2 VBG pO2 VBG HCO3 VBG O2 Saturation VBG Base Excess Anion Gap 12 Estim Creat Clear Calc 88.4 Estimated GFR > 60 POC Glucose 165 H Random Glucose 176 H Calcium 8.4 D Magnesium 1.7 Blood Type Antibody Screen Crossmatch Microbiology Microbiology Results: Microbiology 12/13/23 10:27 Blood Culture - Preliminary Blood - Venous No growth after 48 hours. 12/12/23 07:35 Blood Culture - Final Blood - Venous Escherichia coli 12/12/23 07:29 Blood Culture - Final Blood - Venous Escherichia coli 12/13/23 10:50 Blood Culture - Preliminary Blood - Venous No growth after 24 hours. Assessment and Plan (1) Sepsis: Status: Acute (2) Hydronephrosis, right: Status: Acute (3) Gram-negative bacteremia: Status: Acute (4) UTI (urinary tract infection): Status: Acute Assessment and Plan: 53-year-old female with bacteremia, UTI, bronchitis severe Sepsis secondary to bacteremia/UTI, bronchitis blood pressure seems improving tachycardia improved, fevers improving Renal ultrasound shows hydronephrosis, renal cyst complexleft side. ct abd:There are nonobstructing bilateral renal calculi. There is mild right hydronephroureter secondary to a 2 mm calculus at the right ureterovesicular junction. There are a few tiny 1-3 mm nonobstructing left renal upper and lower pole calculi. No left ureteric calculus is seen, and there is no left hydronephroureter. blood culture grew -ecoli senstive to ceftriaxone ,repeat blood culture -ecoli senstive to ceftriaxone. still intermittent febrile Started on IV antibiotics changed to ceftriaxone continue for 1 more day ,tylenol for fevers . Urology evaluation- Cystoscopy, right retrograde, right stent placement on 12/13/23. Hypokalemia /hypomagnesmia : po replecements ordered anemia/thrombocytopenia: Anemia/thrombocytopenia might be related to sepsis,also having heavy mensturation. s/p 1 prbc 10.3/30.4 htn: hold home meds dm with hyperglycemia fs with coverage and lantus hlp: on atorvastatin dvt prophylax: dc lovenox due to anemia ongoning need considering ongoing Gram-negative bacteremia, sepsis, UTI: Need IV antibiotics and h/h and electrolytic monitering Quality Stroke Does the patient have a stroke diagnosis?: No VTE Prior VTE?: No VTE Risk Level:: Medical - moderate - high VTE Device Contraindication: N/A - Device Ordered VTE Drug Contraindication: Patient Refused
[2023-12-15] MEDS: cefTRIAXone sodium 2 GM in 0.9 % Sodium Chloride 50 ML IV (13:44)
[2023-12-15 16:24] LABS: Glucose, Whole Blood 227 mg/dL (60-115)
[2023-12-15 19:58] LABS: Glucose, Whole Blood 271 mg/dL (60-115)
[2023-12-15] MEDS: Topiramate 25 MG TABLET PO (20:10)
[2023-12-15] MEDS: Atorvastatin Calcium 40 MG TABLET PO (20:10)
[2023-12-16 03:00] VITALS: BP 112/67; PULSE 94; RESP 20; TEMP 36.7; O2SAT 93
[2023-12-16] MEDS: guaiFENesin 200 MG/10 ML 10 ML LIQUID PO ×3 (03:03→08:54)
[2023-12-16] MEDS: 0.9 % Sodium Chloride Flush 3 ML SYRINGE IVFLUSH ×2 (03:03→08:54)
[2023-12-16] MEDS: Pantoprazole Sodium 40 MG/10 ML VIAL IVPUSH (05:51)
[2023-12-16 07:36] LABS: Glucose, Whole Blood 165 mg/dL (60-115)
[2023-12-16 07:37] VITALS: BP 121/73; PULSE 76; RESP 18; TEMP 36.4; O2SAT 96
[2023-12-16] MEDS: levalbuterol HCL 1.25 MG/3 ML VIAL.NEB INHALE (07:49)
[2023-12-16 07:51] VITALS: PULSE 80; RESP 18; O2SAT 97
[2023-12-16 08:10] LABS: Hematocrit 30.4 % (37.0-47.0); Hemoglobin 10.3 g/dl (12.0-16.0)
[2023-12-16] MEDS: Insulin Lispro 100 UNIT/ML 3 ML VIAL SUBCUT ×2 (08:23→11:56)
[2023-12-16 08:25] LABS: Anion Gap 13 (12-20); Blood Urea Nitrogen 5 mg/dL (9-16); Calcium 8.6 mg/dL (8.4-10.2); Carbon Dioxide 16 mmol/L (22-29); Chloride 113 mmol/L (96-108); Creatinine Clr Calc Pharmacy 91.2; Estimated Glomerular Filt Rate > 60; Glucose Random 180 mg/dL (60-115); Potassium 3.5 mmol/L (3.3-5.1); Sodium 138 mmol/L (135-145)
[2023-12-16] MEDS: Cholecalciferol (Vitamin D3) 25 MCG TABLET 50 MCG PO (08:52)
[2023-12-16] MEDS: Loratadine 10 MG TABLET PO (08:52)
[2023-12-16] MEDS: Magnesium Oxide 400 MG TABLET 800 MG PO (08:52)
[2023-12-16] MEDS: Sodium Bicarbonate 650 MG TABLET PO ×2 (08:52→11:56)
[2023-12-16] MEDS: medroxyPROGESTERone Acetate 5 MG TABLET 10 MG PO (08:52)
[2023-12-16] MEDS: Insulin Glargine,Hum.rec.anlog 100 UNIT/ML 10 ML VIAL 10 UNIT SUBCUT (08:58)
[2023-12-16 11:38] LABS: Glucose, Whole Blood 205 mg/dL (60-115)
[2023-12-16 11:55] VITALS: BP 112/70; PULSE 95; TEMP 37.4; O2SAT 93
[2023-12-16] MEDS: cefuroxime axetiL 500 MG TABLET PO (11:57)
[2023-12-16 12:19] LABS: OBS Int Ctl Valid YES; OBS1 NEGATIVE (NEGATIVE)
--- NOTE | 2023-12-16 12:22 | P.DS_ITS ---
DS: Providers Provider Date of Service: 12/16/23 Date of admission: 12/12/23 09:45 Date of discharge: 12/16/23 Primary care physician: Elizabeth Saavedra DO Consults: 12/12/23 12:28 Consult to Urology Routine Consulting Provider: [facility] Reason for consultation: hydronephrosis Has provider been notified: No 12/13/23 09:23 Consult to Infectious Diseases Routine Consulting Provider: [facility] Reason for consultation: Sepsis/gram negative bacteremia Has provider been notified: No Attending physician on discharge: Catalino Gonzales Discharging clinician: Catalino Gonzales DS: Diagnosis Discharge Diagnosis (1) Sepsis: Status: Acute (2) Hydronephrosis, right: Status: Acute (3) Gram-negative bacteremia: Status: Acute (4) UTI (urinary tract infection): Status: Acute DS: Summary Hospital Course Hospital Course: Hpi:53 y/o F history of UTIs reporting cough, fatigue, malaise, myalgias ongoing for 2-3 weeks which progressively getting worse the past 3-4 days, fever and chills but she noticed that this started after getting the pneumonia vaccine. yesterday was in [place] - the wait was very long so decided to go home. in addition also told mild changes in urination frequency, darkened color and smell. She reports associated nausea, without vomiting. Denies chest pain, shortness of breath, vomiting, abdominal pain or back pain, headache, vision changes, dizziness and weakness . labs imaging reviewed : wbc 11.6 bmp and lactic acid normal has gram neg bactermia repeat blood cultures sent cxr -negative renal us:Mild right-sided hydronephrosis/Complex cystic lesion left kidney in ed received iv antibiotics and requested admission for uti/bacteremia /bronchitis . course of hospitlisation: 53-year-old female who was admitted to the hospital because of bacteremia-found to have severe sepsis secondary to UTI, right-sided hydronephrosis and right ureteral stone-patient was started on IV antibiotics, blood cultures sent, urine culture also sent, CT abdomen added: CT abdomen showed right-sided hydronephrosis as well as ureteral stone. Patient was seen by Urology and right-sided ureteral stenting done, with above supportive care with antibiotic, fluids, Tylenol-patient seems to be improved significantly. Her last fever was last evening. Her urine and blood culture is growing E coli which is sensitive to ceftriaxone-discussed with infectious disease: Patient will need Ceftin 500 mg p.o. b.i.d. for 14 days upon discharge. Anemia: Patient says that she still has heavy menstruations and she is on medroxyprogesterone for that, her H&H seems to be improved to 10 after received 1 PRBC. H&H is stable from last 2 days. Patient was strongly advised outpatient follow- up with medical billing clerk for further management. Patient renal ultrasound done initially showed incidental finding: Complex cystic lesion in the lower pole of the left kidney with suggestion of an internal solid nodule; recommend further characterization with renal MRI with and without IV contrast. Discussed with the patient patient says that she is aware about this finding and she is following up with PCP-we suggested consider outpatient MRI as above. plan: Monitor CBC outpatient. Complete Ceftin 500 mg p.o. b.i.d. for 14 days. Follow-up with Urology, medical billing clerk, PCP for above mentioned issues as above. Above management discussed with the patient with the help of land surveying manager she understand and in agreement with the above plan, time spent 40 minute. Time Attestation Total time managing care of this patient today: 40 mintues. Discharge Coordination Time (in mins): 40 min Quality: Safe Use of Opioids Does Pt have an Active Cancer Diagnosis on the Problem List?: No Quality: Stroke Does the patient have a stroke diagnosis?: No Physical Exam Vital Signs: Vital Signs: Last Vital Signs Temp 99.3 F 12/16/23 11:55 Pulse 95 12/16/23 11:55 Resp 18 12/16/23 07:51 BP 112/70 12/16/23 11:55 Pulse Ox 93 12/16/23 11:55 O2 Del Method Room Air 12/16/23 11:55 O2 Flow Rate 2 12/14/23 07:35 Oxygen Flow Rate 2 12/13/23 19:22 BMI result Body Mass Index 22.3 Appearance: Alert.? Oriented X3.?feels weak cvs: rrr, [id number]. res: clear to auscultation ,no rhonchii or wheezing abd: no rebound or guarding ,nt, bs present. ext pulses present , no cyanosis . neuro: axo3 , nonfocal. DS: Data Data Completed and Pending Labs on day of discharge: Laboratory Results - last 24 hr 12/15/23 12/15/23 12/16/23 16:16 19:54 07:33 Hgb Hct Sodium Potassium Chloride Carbon Dioxide Anion Gap BUN Creatinine Estim Creat Clear Calc Estimated GFR POC Glucose 227 H 271 H 165 H Random Glucose Calcium Stool Occult Blood 12/16/23 12/16/23 12/16/23 07:48 11:32 11:52 Hgb 10.3 L Hct 30.4 L Sodium 138 Potassium 3.5 Chloride 113 H Carbon Dioxide 16 L Anion Gap 13 BUN 5 L Creatinine 0.63 Estim Creat Clear Calc 91.2 Estimated GFR > 60 POC Glucose 205 H Random Glucose 180 H Calcium 8.6 Stool Occult Blood NEGATIVE Preliminary micro results at discharge 12/13/23 10:50 Blood Culture - Preliminary Blood - Venous No growth after 48 hours. 12/13/23 10:27 Blood Culture - Preliminary Blood - Venous No growth after 48 hours. Imaging Chest x-ray: Radiologist's impression: ITS Impressions Renal Ultrasound 12/12/23 10:01 IMPRESSION: 1. Mild right-sided hydronephrosis. Further evaluation with CT abdomen/pelvis could be obtained as clinically warranted if there are concerns for obstructive uropathy. 2. Bilateral renal calculi. 3. Complex cystic lesion in the lower pole of the left kidney with suggestion of an internal solid nodule; recommend further characterization with renal MRI with and without IV contrast. The report will be called to the ordering clinician by a [facility] Physician Pool Hand. Electronically signed by: Flor Hernandez MD 12/12/2023 11:55 AM EDT Abdomen/Pelvis CT 12/13/23 17:29 IMPRESSION: 1. There are nonobstructing bilateral renal calculi. There is mild right hydronephroureter secondary to a 2 mm calculus at the right ureterovesicular junction. 2. There is splenomegaly. 3. There is moderate pelvic free fluid. 4. There is multi-level mild thoracolumbar spondylosis. 5. There are very small dependent pleural effusions, with adjacent compressive atelectasis. Fleischner guidelines were followed. Electronically signed by: Jeanmarie Lovelace MD 12/13/2023 10:52 PM EDT Guidance Fluoroscopy 12/13/23 19:38 IMPRESSION: Single provided image demonstrates a catheter overlying the right proximal ureter/renal pelvis with contrast partially opacifying the right renal pelvis. Please correlate to Duglas Gonzalez MD's procedure report for further details. Electronically signed by: Alirio Price MD 12/16/2023 10:10 AM EDT RP Discharge Plan Discharge Anticipated Discharge Date/Time: 12/16/23 12:12 Patient Disposition: Home, Self-Care Discharge Diagnosis: Severe sepsis secondary to UTI, hydronephrosis, ureteral stone, anemia. Heavy menstruations history Referrals: Duglas Gonzalez MD [Physician] - 1 Week Elizabeth Saavedra DO [Primary Care Provider] - 1 Week Discharge Medications: New cefuroxime axetil 500 mg Tablet 500 mg PO Q12H Qty: 28 0RF loratadine 10 mg Tablet 10 mg PO DAILY Qty: 10 0RF Continued medroxyprogesterone [Provera] 10 mg tablet 10 mg PO DAILY 14 Days Qty: 14 0RF atorvastatin 40 mg tablet 40 mg PO BEDTIME topiramate 25 mg tablet 25 mg PO BEDTIME docusate sodium 100 mg capsule 100 mg PO BID PRN (Reason: Constipation) cholecalciferol (vitamin D3) 50 mcg (2,000 unit) tablet 50 mcg PO DAILY insulin degludec [Tresiba FlexTouch U-200] 200 unit/mL (3 mL) insulin pen See Protocol subcut DAILY Protocol: Insulin Correction Scale Less than or equal to 110 ---- Give (units): 0 111 to 150 Give (units): 10 151 to 200 Give (units): 10 201 to 250 Give (units): 14 251 to 300 Give (units): 14 301 to 350 Give (units): 14 Greater than 350 Give (units): 14 Call MD if Blood Glucose > : 350 Held lisinopril 5 mg tablet 5 mg PO DAILY Hold Instructions: Resume on 12/19/23. Discharge Orders: Discharge Order (Routine); Ordered 12/16/23 Ordered By: Catalino Gonzales Diet: Advance to usual diet Activity on Discharge: As tolerated Stand Alone Forms: Patient Portal Discharge page, Work/School Release Print Language: Liberian Other Ambulatory Orders: Basic Metabolic Panel (Routine) Timeframe: 1 Week Facility: [facility] - Location: Laboratory Ordered By: Catalino Gonzales Complete Blood Count no Diff (Routine) Timeframe: 1 Week Facility: [facility] - Location: Laboratory Ordered By: Catalino Gonzales Magnesium (Routine) Timeframe: 1 Week Facility: [facility] - Location: Laboratory Ordered By: Catalino Gonzales Care Plan Goals: Patient is 53-year-old female who was admitted to the hospital because of bacteremia-found to have severe sepsis secondary to UTI, right-sided hyd ronephrosis and right ureteral stone-patient was started on IV antibiotics, blood cultures sent, urine culture also sent, CT abdomen added: CT abdomen showed right-sided hydronephrosis as well as ureteral stone. Patient was seen by Urology and right-sided ureteral stenting done, with above supportive care with antibiotic, fluids, Tylenol-patient seems to be improved significantly. Her last fever was last evening. Her urine and blood culture is growing E coli which is sensitive to ceftriaxone-discussed with infectious disease: Patient will need Ceftin 500 mg p.o. b.i.d. for 14 days upon discharge. Anemia: Patient says that she still has heavy menstruations and she is on medroxyprogesterone for that, her H&H seems to be improved to 10 after received 1 PRBC. H&H is stable from last 2 days. Patient was strongly advised outpatient follow- up with medical billing clerk for further management. Patient renal ultrasound done initially showed incidental finding: Complex cystic lesion in the lower pole of the left kidney with suggestion of an internal solid nodule; recommend further characterization with renal MRI with and without IV contrast. Discussed with the patient patient says that she is aware about this finding and she is following up with PCP-we suggested consider outpatient MRI as above. Above management discussed with the patient with the help of land surveying manager she understand and in agreement with the above plan, time spent 40 minute. Health Concerns: As above. Monitor CBC outpatient. Complete Ceftin 500 mg p.o. b.i.d. for 14 days. Follow-up with Urology, medical billing clerk, PCP for above mentioned issues as above. Plan of Treatment: As above. Assessment: As above. Discharge Date/Time: 12/16/23 14:32
--- NOTE | 2023-12-16 13:09 | MHC.CM.PN ---
Pt has been medically cleared for DC, she will go home via private transport, plan is self care.
== END 2023-12-16 14:32 | disposition home or self-care (01) | DRG 720 ==
LOC: HO.ED 08:14 → HO.EDOVER 09:58 → HO.IMC 19:18
PROVIDERS: Physician Assistant; Student in an Organized Health Care Education/Training Program; Urology; Admitting Provider Internal Medicine; Emergency Provider Emergency Medicine; PCP Family Medicine; Referring Provider Family Medicine; Visit Provider Internal Medicine
PROC: 0T768DZ Dilation of Right Ureter with Intraluminal Device, Via Natural or Artificial Opening Endoscopic (ICD-10-PCS; principal; 2023-12-13 18:50)
DX: A41.51 Sepsis due to Escherichia coli [E. coli] (principal); D69.59 Other secondary thrombocytopenia; I95.9 Hypotension, unspecified; N13.6 Pyonephrosis; E11.65 Type 2 diabetes mellitus with hyperglycemia; D64.9 Anemia, unspecified; E78.5 Hyperlipidemia, unspecified; R65.20 Severe sepsis without septic shock; J40 Bronchitis, not specified as acute or chronic; N92.0 Excessive and frequent menstruation with regular cycle; F17.210 Nicotine dependence, cigarettes, uncomplicated; N28.1 Cyst of kidney, acquired; Z20.822 Contact with and (suspected) exposure to COVID-19; Z87.440 Personal history of urinary (tract) infections; Z71.6 Tobacco abuse counseling; Z79.4 Long term (current) use of insulin; Z79.899 Other long term (current) drug therapy
CPT/HCPCS: 0241U; 36415; 74176; 76775; 80048; 80053; 81001; 82272; 82607; 82728; 82746; 82803; 82947; 83540; 83605; 83735; 85014; 85018; 85025; 85027; 86850; 86900; 86901; 86923; 87040; 87077; 87205; 87491; 87591; 92950; 94640; 99285; C1758; C1769; C2617; J0131; J0696; J1956; J2405; J2470; J2543; J2704; J3010; J7120; P9016; P9047; Q9967

== ENCOUNTER → 2023-12-12 09:45 | Outpatient (BNV) | payer MEDICAID, SELFPAY | PROVIDERS: Admitting Provider Internal Medicine; Emergency Provider Emergency Medicine; PCP Family Medicine; Visit Provider Urology | DX: R78.81 Bacteremia (principal); N13.6 Pyonephrosis | CPT/HCPCS: 52332; 74420; 99222 ==

== ENCOUNTER → 2023-12-12 09:45 | Outpatient (BNV) | payer MEDICAID, SELFPAY | PROVIDERS: Admitting Provider Internal Medicine; Emergency Provider Emergency Medicine; PCP Family Medicine; Visit Provider Internal Medicine | DX: A41.9 Sepsis, unspecified organism (principal); N13.30 Unspecified hydronephrosis; N39.0 Urinary tract infection, site not specified; R31.9 Hematuria, unspecified | CPT/HCPCS: 99222; 99232; 99233; 99239 ==

== ENCOUNTER → 2023-12-12 09:45 | Outpatient (BNV) | payer MEDICAID, SELFPAY | PROVIDERS: Admitting Provider Internal Medicine; Emergency Provider Emergency Medicine; PCP Family Medicine; Visit Provider Internal Medicine | DX: N13.30 Unspecified hydronephrosis (principal); R78.81 Bacteremia; N39.0 Urinary tract infection, site not specified; R31.9 Hematuria, unspecified; A41.9 Sepsis, unspecified organism | CPT/HCPCS: 99222 ==

== ENCOUNTER 2023-12-26 12:12 | Outpatient (AMB) | payer MEDICAID, SELFPAY ==
--- NOTE | 2023-12-26 13:08 | MHC.OFFVIS ---
Intake Visit Reasons: stent removal Intake Note: Patient is Present for Cystoscopy/Stent Removal Urology Med: None Antibiotic Allergy: None Blood Thinner: None URO- G Disposable Cystoscope lot:[id number] exp:06/08/26 Retail Pharmacy Merchandiser Required: Yes Retail Pharmacy Merchandiser Language: Nepalese Manager Fraud: Manager Fraud Present Accompanied by: Spouse Allergies No Known Allergies Allergy (Verified 12/26/23 13:11) Medication List - Last Reconciled 12/26/23 by Duglas Gonzalez MD atorvastatin 40 mg PO BEDTIME cefuroxime axetil 500 mg PO Q12H cholecalciferol (vitamin D3) 50 mcg PO DAILY docusate sodium 100 mg PO BID PRN insulin degludec (Tresiba FlexTouch U-200 insulin) See Protocol units subcut DAILY lisinopril 5 mg PO DAILY loratadine 10 mg PO DAILY medroxyprogesterone (Provera) 10 mg PO DAILY 14 days topiramate 25 mg PO BEDTIME HPI Comments Details: Rosalind is a pleasant Nepalese-speaking female. She is a patient of . 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 Multiple renal calculi largest measuring 0.4 cm in the interpolar kidney. Multiple simple appearing cysts largest measuring 1.4 cm in the lateral interpolar kidney. Scattered punctate hyperechoic foci that could represent a combination of calculi and vascular calcifications - CT There are nonobstructing bilateral renal calculi. There is mild right hydronephroureter secondary to a 2 mm calculus at the right ureterovesicular junction [facility] Medical History Sepsis Hypercholesteremia Migraines Diabetes Social History Household Members: Spouse Housing: Apartment Do you presently have visiting nurse or other home services: No Alcohol intake: never Patient Tobacco Use Status: Current everyday Tobacco user Tobacco use type: Cigarette Cigarettes Per Day: 2 e-Cigarette/Vaping Use: Never Used Second Hand Smoke Exposure: Yes service: No Review of Systems Const Denies chills and Denies fever(s) Card Reports no additional complaints and Denies syncope Resp Denies cough GI Denies abdominal pain and Denies heartburn Reports as per HPI and Denies change in libido Neuro Denies syncope Psych Denies change in libido Endo Denies change in libido Physical Exam Const General: cooperative, healthy appearing, comfortable and no acute distress Orientation/consciousness: patient oriented x3 HEENT Face and sinus: Yes normal facial exam Mouth: moist mucous membranes Neck Neck: Yes normal visual inspection, Yes full ROM and Yes trachea midline Chest Chest palpation & inspection: normal inspection of the chest Resp Effort & Inspection: normal respiratory effort, able to speak in complete sentences and no respiratory distress GI Inspection: Yes normal to inspection Back/Spine/Pelvis Cervical Spine: normal cervical lordosis Thoracic/Lumbar Spine: thoracic and lumbar spine normal to inspection Skin General skin exam: no rashes or lesions noted Neuro General: patient oriented x3, gait normal, tone normal and moves all extremities Extrem General: Yes normal to inspection and Yes capillary refill normal Office Procedures Cystoscopy Consent Discussed risk and benefit or proposed procedure with the patient. Information consent for procedure given to the patient. Discussed technical aspects, risks, benefits and alternatives in full. Addressed all of the patient's questions and concerns regarding the procedure. The patient demonstrated knowledge and understanding. They wish to proceed with this procedure. Preparation The patient was prepped in the usual manner. A tricot knitter was present and in the room. Genitalia was prepped with betadine solution in a sterile manner. Lidocaine Jelly 2% was placed into the urethra and 16Fr flexible Olympus cystoscope was inserted into the meatus after adequate lubrication. Procedure A well lubricated 16 Macedonian cystoscope was placed No abnormality noted of urethra during placement Indwelling stent seen within bladder emerging from right ureteric orifices The stent was grasped with a 3 prong grasper and removed without difficulty The patient tolerated the procedure well [id number] DISPOSABLE SCOPE URO-G FLEXIBLE SCOPE Procedure code (CPT) selection complete Office Meds lidocaine HCl 2 % mucosal jelly in applicator Performing Provider: Duglas Gonzalez MD [place]forming Location[place] [facility] [place] [facility] Administered by: Grady Guthrie LPN on 12/26/23 13:34 Dose Route Admin Location Dispensed Lot Number Expiration Date [facility] Clinical Services Assistant 10 mL intra-urethral 10 mL nitrofurantoin monohydrate/macrocrystals 100 mg capsule Performing Provider: Duglas Gonzaelz MD Performing Location: [facility] [place] [facility] Administered by: Grady Guthrie LPN on 12/26/23 13:34 Dose Route Admin Location Dispensed Lot Number Expiration Date [facility] Clinical Services Assistant 100 mg PO 1 cap naproxen 500 mg tablet Performing Provider: Duglas Gonzalez MD Performing Location: [facility] [place] [facility] Administered by: Grady Guthrie LPN on 12/26/23 13:34 Dose Route Admin Location Dispensed Lot Number Expiration Date [facility] Clinical Services Assistant 500 mg PO 1 tab Results AMB Urinalysis, Automated UA Leukoctes 0 Didier/uL Last Edit by Elizabeth Pleitez [facility] on 12/26/23 13:17 UA Nitrite Negative Last Edit by Elizabeth Pleitez [facility] on 12/26/23 13:17 UA Urobilinogen 0.2 mg/dL Last Edit by Elizabeth Pleitez A on 12/26/23 13:17 UA Protein 30 mg/dL Last Edit by Elizabeth Pleitez [facility] on 12/26/23 13:17 UA pH 6.0 Last Edit by Elizabeth Pleitez A on 12/26/23 13:17 UA Blood 200 Gatito/uL Last Edit by Elizabeth Pleitez [facility] on 12/26/23 13:17 UA Specific [place] 1.015 Last Edit by Elizabeth Pleitez A on 12/26/23 13:17 UA Ketone Negative Last Edit by Elizabeth Pleitez A on 12/26/23 13:17 UA Bilirubin 0 mg/dL Last Edit by Elizabeth Pleitez A on 12/26/23 13:17 UA Glucose 1000 mg/dL Last Edit by Elizabeth Pleitez A on 12/26/23 13:17 Results Reviewed Results Reviewed: Laboratory Last Values Urine pH (Auto) 6.0 12/26/23 13:11 Specific [place] (Auto) 1.015 12/26/23 13:11 Urine Protein (Auto) 30 mg/dL 12/26/23 13:11 Glucose (UA)(Auto) 1000 mg/dL 12/26/23 13:11 Urine Ketones (Auto) Negative 12/26/23 13:11 Urine Blood (Auto) 200 Gatito/uL 12/26/23 13:11 Urine Nitrite (Auto) Negative 12/26/23 13:11 Urine Bilirubin (Auto) 0 mg/dL 12/26/23 13:11 Urine Urobilinogen (Auto) 0.2 mg/dL 12/26/23 13:11 Leukocyte Esterase (Auto) 0 Didier/uL 12/26/23 13:11 Assessment & Plan Assessment & Plan (1) Hydronephrosis, right: Code(s): N13.30 - Unspecified hydronephrosis Category: Medical Plan May need stone assessment in three-month Orders: Orders AMB Urinalysis Automated Today Z13.9 - Encounter for screening, unspecified AMB Cystoscopy Today N13.30 - Unspecified hydronephrosis US renal BI 3 Months N13.30 - Unspecified hydronephrosis Patient Instructions: Imaging studies, laboratory and physical exam results were discussed and reviewed in detail. No major barriers to patient understanding were identified. An opportunity to ask questions regarding the treatment plan was provided. All questions were answered. The patient expressed understanding and agreement with the above treatment plan. The patient is aware they should contact our office by phone for worsening of their current condition or the appearance of new urologic symptoms. Compliance is encouraged with any medications and followup testing that is ordered. It is a privilege to participate in the urologic care of your patient. If you have any questions or concerns regarding treatment for the above conditions, or other urologic issues, please do not hesitate to contact me. The office telephone contact is [phone]. This note is constructed using voice recognition software. While every effort has been made to ensure accuracy delivery rn errors may have been included. Yours sincerely, Dr Duglas Gonzalez MD, RAMIRO [facility] - Urology Providers of Expert, Compassionate Care for the Genitourinary System Coding Level of Care Code Est Pt Level 3 (93458) Diagnoses Hydronephrosis, right N13.30 CPT Codes Cystoscopy - CPT: [id number] ([id number])
== END 2023-12-26 13:45 | disposition home or self-care (01) ==
PROVIDERS: PCP Family Medicine; Visit Provider Urology
DX: N13.30 Unspecified hydronephrosis (principal); Z13.9 Encounter for screening, unspecified
CPT/HCPCS: 52000

== ENCOUNTER → 2023-12-26 12:12 | Outpatient (BNVA) | payer MEDICAID, SELFPAY | PROVIDERS: PCP Family Medicine; Visit Provider Urology | DX: Z46.6 Encounter for fitting and adjustment of urinary device (principal); N13.30 Unspecified hydronephrosis | CPT/HCPCS: 52000; 52310; 81003 ==